=== PATIENT | male | born 1930 | race Caucasian/White ===

== ENCOUNTER 2016-03-26 00:40 | Inpatient (IN) | payer OTHER ==
[~2016-03-26] VITALS: Ht 170.2 cm; Wt 75.9 kg
[~2016-03-26 00:40] MED LIST: ASPI32ECTA PO; CLOP75TA2 PO; DOCU100C PO; DRIS50002 PO; FURO20TA2 PO; HYDR-4267 PO; INSULADS SC; LISI40TAB PO; LOSA100T36 PO; LOSA50TA20 PO; MECL-68 PO; METO-207 PO; NIFE15TA PO; SIMV40TA2 PO
[2016-03-26] MEDS ORDERED: GASTROGRAFIN SOLUTION 30ML (Q9963) As Ordered ONE (01:35)
[2016-03-26 01:40] LABS: BASO % 0.3 % (0.0-1.0); EOS # 0.2 K/mm3 (0.0-0.50); EOS % 1.6 % (0.0-3.0); LARGE UNSTAINED CELL # 0.2 K/mm3 (0.0-0.4); LARGE UNSTAINED CELL % 1.6 % (0.0-4.0); LYMPH # 2.2 K/mm3 (1.5-4.5); MEAN CORPUSCULAR HEMOGLOBIN 29.4 pg (27.0-33.0); MEAN CORPUSCULAR HGB CONC 32.7 g/dl (32.0-36.5); MEAN CORPUSCULAR VOLUME 90.1 fl (80.0-96.0); MONO # 0.4 K/mm3 (0.0-0.8); MONO % 4.3 % (0.0-5.0); NEUTROPHILS # 6.9 K/mm3 (1.8-7.7); NEUTROPHILS % 70.2 % (36.0-66.0); PLATELET COUNT, AUTOMATED 189 k/mm3 (150-450); RED CELL DISTRIBUTION WIDTH 12.2 % (11.5-14.5); WHITE BLOOD COUNT 9.9 K/mm3 (4.0-10.0)
[2016-03-26 02:07] LABS: ALBUMIN 3.9 GM/DL (3.2-5.2); ALBUMIN/GLOBULIN RATIO 1.18 (1.00-1.93); ALKALINE PHOSPHATASE 84 U/L (45-117); ALT/SGPT 17 U/L (12-78); AMYLASE 89 U/L (25-115); ANION GAP 9 MEQ/L (8-16); AST/SGOT 12 U/L (15-37); BILIRUBIN,DIRECT < 0.1 MG/DL (0.0-0.2); BILIRUBIN,TOTAL 0.2 MG/DL (0.2-1.0); CALCIUM LEVEL 9.2 MG/DL (8.8-10.2); CARBON DIOXIDE LEVEL 26 MEQ/L (21-32); CHLORIDE LEVEL 110 MEQ/L (98-107); CREATININE FOR GFR 1.48 MG/DL (0.70-1.30); GLOMERULAR FILTRATION RATE 48.2 (>35); GLUCOSE, FASTING 136 MG/DL (83-110); POTASSIUM SERUM 4.7 MEQ/L (3.5-5.1); SODIUM LEVEL 145 MEQ/L (136-145); TOTAL PROTEIN 7.2 GM/DL (6.4-8.2)
[2016-03-26 02:13] LABS: BLOOD UREA NITROGEN 48 MG/DL (7-18)
[2016-03-26] MEDS ORDERED: MORPHINE 4 MG/ML 1ML SYRINGE As Ordered ONE (02:42)
[2016-03-26] MEDS ORDERED: ISOVUE-370 76% 100ML VIAL (Q9967) As Ordered ONE (02:45)
--- NOTE | 2016-03-26 03:40 | REPUSA ---
CLINICAL HISTORY: Abdominal pain. TECHNIQUE: Multiple axial, sagittal and coronal CT images were obtained through the abdomen and pelvi s after administration of oral and intravenous contrast material. COMMENTS: Changes from prior prostatectomy. Colonic diverticulosis. Large bowel fecal stasis. Small sliding hiatal hernia. Fluid-filled distended small bowel is more prominent in the right lower quadrant. The liver is of uniform attenuation without mass or defect. There is no intra or extrahepatic biliary ductal dilatation. The spleen is normal. The gallbladder is surgically absent. The pancreas is of no rmal contour and attenuation characteristics. There is no evidence of adrenal mass. Both kidneys demonstrate prompt and equal nephrograms. The kidneys are normal in size, shape and conf iguration. There is no evidence of renal or ureteral mass. No renal or ureteral calculi are identifie d. There is no hydroureter or hydronephrosis. No evidence for appendicitis. There is no evidence of abdominal ascites or lymphadenopathy. There is no evidence of intrinsic or extrinsic bladder mass. There is no pelvic ascites or lymphadeno joan. Images of the lung bases show no evidence of pleural or parenchymal mass. There are no pleural effusi ons. The bony structures are free of lytic or blastic lesions. Multilevel degenerative changes are seen in volving the thoracolumbar spine. Scattered calcifications are seen involving the aorta and major bran ches compatible with atherosclerosis. Sliding hiatal hernia. IMPRESSION: Prostatectomy. Partial small bowel obstruction. A transition zone in the right lower quadrant. No bowel perforation or pneumatosis intestinalis. Thank you for your kind referral of this patient.
[2016-03-26] MEDS ORDERED: MECL12.575 PO (04:27)
[2016-03-26] MEDS ORDERED: CORITAB5 PO (04:27)
[2016-03-26] MEDS ORDERED: METF1000 PO ×2 (04:27→04:35)
[2016-03-26] MEDS ORDERED: INSULANT SC ×2 (04:27→04:35)
[2016-03-26] MEDS ORDERED: LISI40TAB PO ×2 (04:27→04:35)
[2016-03-26] MEDS ORDERED: CO Q1CAP PO ×2 (04:27→04:35)
[2016-03-26] MEDS ORDERED: LORA10TA2 PO ×2 (04:27→04:35)
[2016-03-26] MEDS ORDERED: FURO20TA2 PO (04:35)
[2016-03-26] MEDS ORDERED: PLAV75TA38 PO (04:35)
[2016-03-26] MEDS ORDERED: SIMV40TA2 PO (04:35)
[2016-03-26] MEDS ORDERED: ASPI325T PO (04:35)
[2016-03-26] MEDS ORDERED: NIFE15TA PO (04:35)
[2016-03-26] MEDS ORDERED: METO-207 PO (04:35)
[2016-03-26] MEDS ORDERED: MUPI2OI EXT (06:52)
[2016-03-26] MEDS ORDERED: ONDANSETRON 4MG/2ML VIAL (J2405) IV PRN (09:00)
[2016-03-26] MEDS ORDERED: KETOROLAC 30 MG/ML VIAL (J1885) IV PRN (09:00)
[2016-03-26] MEDS ORDERED: NORCO, ANEXSIA 5/325MG TABLET (HYDROcodone/ACETAMINOPHEN) PO PRN (09:00)
[2016-03-26] MEDS ORDERED: ACETAMINOPHEN TAB 650MG DOSE (2X325MG) PO PRN (09:00)
[2016-03-26] MEDS ORDERED: PIPERACILLIN/TAZOBACTAM SOD 3.375 GM in D5W MINI-BAG PLUS 50 ML IV SCH (11:00)
[2016-03-26] MEDS ORDERED: GLUCOSE 4 GM CHEW TABLET PO PRN (12:15)
[2016-03-26] MEDS ORDERED: DEXTROSE 50% 50 ML SYRINGE IV PRN (12:15)
[2016-03-26] MEDS ORDERED: MECLIZINE 12.5 MG TAB PO PRN (12:15)
[2016-03-26] MEDS ORDERED: GLUCAGON FOR INJ 1 MG VIAL (J1610) SC PRN (12:15)
[2016-03-26] MEDS ORDERED: HEPARIN SOD (PORCINE) 5000 UNITS/ML VIAL As Ordered ONE (13:50)
[2016-03-26] MEDS ORDERED: HEPARIN SOD (PORCINE) 5000 UNITS/ML VIAL SC SCH (14:00)
--- NOTE | 2016-03-26 14:15 | EDDOCDS ---
Nurse's Notes [facility] Name: Mnig Cerda Age: 86 yrs Sex: Male : 1930 Arrival Date: 03/26/2016 Time: 00:40 Bed Admit Hold Private MD: Diagnosis: Other intestinal obstruction Presentation: 03/26 00:51 Presenting complaint: Patient states: Patient reports having chest pain and abdominal jmb pain. Patient reports that symptoms have been going for 3-4 hours. Patient reports he feels like he is having a heart attack. Adult Sepsis Screening: The patient does not have new or worsening altered mentation. Patient's respiratory rate is less than 22. Systolic blood pressure is greater than 100. Patient has a qSOFA score of 0- Negative Sepsis Screen. Suicide/Homicide risk assessment- the patient denies having any suicidal and/or homicidal ideations and does not present with any other emotional, behavioral or mental health complaints. 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 Transition of care: patient was not received from another setting of care. 00:51 Acuity: LIA Level 3 jmb 00:51 Method Of Arrival: Walkin/Carried/Asstd jmb Triage Assessment: 00:58 General: Appears in no apparent distress, Behavior is appropriate for age, cooperative. jmb Pain: Location: abdomen Pain currently is 4 out of 10 on a pain scale. Neurological: Level of Consciousness is awake, alert, obeys commands, Oriented to person, place, time, Speech is normal, Facial symmetry appears normal, Facial symmetry: tongue is midline. Cardiovascular: No deficits noted. Respiratory: Airway is patent Respiratory effort is even, unlabored, Respiratory pattern is regular, symmetrical. GI: Abdomen is non- distended. Derm: Skin is pink, warm & dry. Musculoskeletal: Range of motion intact in all extremities. Historical: - Allergies: No known drug Allergies; - Home Meds: 1. metoprolol succinate 50 mg Tb24 1 tab once daily 2. Plavix 75 mg Oral tab 1 tab once daily 3. hydralazine 50 mg Oral tab 1 tab three times a day 4. furosemide 20 mg Oral tab 1 tab once daily 5. losartan 100 mg oral tab 0.5 tab twice a day 6. Nifedical XL 60 mg oral tr24 1 tab once daily 7. simvastatin 40 mg Oral tab 1 tab once daily 8. lisinopril 40 mg Oral tab 1 tab once daily 9. aspirin 325 mg Oral tab 1 tab once daily 10. Vitamin D Oral 50,000 unit weekly 11. metformin 1,000 mg Oral tr24 1 tab once daily 12. coenzyme Q10 oral 100-200 oral daily 13. Lantus 100 unit/mL Sub-Q soln 15 unit daily 14. meclizine 12.5 mg Oral chew twice a day 15. Coricidin HBP Cough and Cold 4-30 mg oral tab as needed 16. loratadine 10 mg Oral TbDL 1 tab once daily - PMHx: Hypertension; hyperlipidemia; Diabetes - NIDDM: controlled; Seasonal Allergies; - PSHx: Right inguinal hernia repair; Prostatectomy (1998); Triple bypass; Cardiac stents; right leg bypass; left shoulder rotator cuff; Cholecystectomy; right carotid endarectomy; left ocular lens; right ocular lens; chest biopsy; chest wall CA removed; left inguinal hernia repair; - Social history: Smoking status: Patient states was never smoker of tobacco. No barriers to communication noted, The patient speaks fluent Gambian, Speaks appropriately for age. - : The pt / caregiver states he / she is on anticoagulants: Plavix. Home medication list is obtained from the patient. - Exposure Risk Screening:: None identified. Screenin:56 Screening information is obtained from the patient. Fall risk: At risk due to age, The hs1 following interventions are performed due to a positive Fall Risk Screen: Fall Risk is added to Special Handling on the patient Summary Screen. A Fall Risk Bracelet was applied to the patient. Side Rails are placed in the up position. A Call Dubose is given with instruction to call for help when getting out of bed. Fall Alert bracelet is placed on the patient. Assistance ADL's: requires no assistance with activities of daily living. Abuse/DV Screen: The patient / caregiver reports he/she is: not in a situation that causes fear, pain or injury. Nutritional screening: No deficits noted. Advance Directives: There is no active DNR order. home support is adequate. Assessment: 01:44 General: Appears in no apparent distress, comfortable, Behavior is appropriate for age, nn1 cooperative. Pain: Location: right lower quadrant and left lower quadrant Pain currently is 5 out of 10 on a pain scale. Pain radiates to chest Quality of pain is described as dull, Pain began 1999 yesterday Is continuous. Neurological: Level of Consciousness is awake, alert, obeys commands, Oriented to person, place, time. Respiratory: Airway is patent Respiratory effort is even, unlabored, Respiratory pattern is regular, symmetrical, Breath sounds are clear bilaterally. GI: Abdomen is non- distended abdomen feels firm, patient states he does not feel like his abdomen is distended or hardened, states this is his normal state. Patient denies bloated feeling. Bowel sounds present X 4 quads. Abd is tender to palpation in right upper quadrant and right lower quadrant. : No deficits noted. Denies burning with urination, inability to void. Derm: Skin is pink, warm & dry. Musculoskeletal: Circulation, motion, and sensation intact Capillary refill < 3 seconds Range of motion intact in all extremities. 01:47 General: Patient drinking contrast, aware that we are waiting for urine sample. Fluids nn1 infusing per order. Warm blanket applied. . 02:48 General: Patient reporting increased abdominal pain, provider notified and patient nn1 medicated per orders. Patient comfortable, given warm blankets. . Neurological: Level of Consciousness is awake, alert, Oriented to person, place, time. Derm: Skin is normal. 03:42 General: Patient sleeping when this documenter entered the room. Patients oxygen nn1 decreased to 87% on RA when sleeping, 2L oxygen nasal cannula placed on patient, O2 increased to 92%. . 04:13 General: Patients family voiced concerns regarding NG tube and patients nasal nn1 infection. Spoke with Dr. Boogie, instructed to hold NG/OG tube at this time unless patient begins vomiting. Patient and family notified of plan of care at this time. . Neurological: Level of Consciousness is awake, alert. Cardiovascular: Capillary refill < 3 seconds Rhythm is sinus rhythm No ectopy. Respiratory: Airway is patent Respiratory effort is even, unlabored, Respiratory pattern is regular, symmetrical. 05:04 General: Appears in no apparent distress, to be sleeping. Behavior is quiet. nn1 06:05 General: Appears to be sleeping. Behavior is quiet. Respiratory: Airway is patent nn1 Respiratory effort is even, unlabored, Respiratory pattern is regular, symmetrical. Derm: Skin is pink, warm & dry. 07:20 General: Appears in no apparent distress, comfortable, Behavior is appropriate for age, hs1 cooperative. Pain: Denies pain. Neurological: Level of Consciousness is awake, alert, obeys commands. GI: Denies nausea. : Urine is clear, up to urinate at this time. Derm: Skin is pink, warm & dry. normal. 08:06 Reassessment: Patient appears in no apparent distress at this time. Patient denies pain hs1 at this time. Patient states feeling better. Patient states symptoms have improved. Patient states "I think Ill live, I feel much better than I did - wow!" Patients lights dimmed for comfort and patient drifting off back to sleep again. Patient appears comfortable with no issues. Patient aware of NPO (nothing to eat/drink) status. . 09:32 General: Morning medications given at this time. Patient sitting up on side of bed hs1 tolerating sips of water and states he is not in any pain. Patient requests to rest again, so lights dimmed and patient returned to bed. Call dubose within reach. Patient continues to deny pain. . 10:45 General: Appears in no apparent distress, comfortable, Behavior is appropriate for age, hs1 cooperative. General: resting comfortably on stretcher. Using urinal as needed. . Pain: Denies pain. Respiratory: No deficits noted. 11:48 General: Appears in no apparent distress, comfortable, Behavior is appropriate for age, hs1 cooperative. Pain: Denies pain. Neurological: Level of Consciousness is awake, alert, obeys commands, Oriented to person, place, time. Cardiovascular: No deficits noted. Respiratory: No deficits noted. Derm: Skin is pink, warm & dry. normal. 12:48 General: Appears in no apparent distress, comfortable, Behavior is appropriate for age, hs1 cooperative. Pain: Denies pain. Neurological: Level of Consciousness is awake, alert, Oriented to person, place, time. Cardiovascular: Rhythm is regular. Respiratory: No deficits noted. Derm: Skin is pink, warm & dry. normal. 13:32 General: Appears in no apparent distress, comfortable, Behavior is appropriate for age, hs1 cooperative. Pain: Denies pain. Respiratory: No deficits noted. Derm: Skin is pink, warm & dry. normal. Vital Signs: 01:05 BP 207 / 87; Pulse 74; Resp 18; Temp 97.4(O); Pulse Ox 96% on R/A; Pain 4/10; jmb 01:25 BP 180 / 81 (auto/); nn1 01:25 Pulse 64 MON; Pulse Ox 96% ; nn1 01:30 BP 163 / 73 (auto/); nn1 01:31 Pulse 66 MON; Pulse Ox 95% ; nn1 01:45 BP 185 / 77 (auto/); nn1 01:46 Pulse 66 MON; Pulse Ox 95% ; nn1 02:00 BP 141 / 66 (auto/); nn1 02:00 Pulse 58 MON; Pulse Ox 94% ; nn1 02:15 BP 135 / 61 (auto/); nn1 02:16 Pulse 56 MON; Pulse Ox 93% ; nn1 02:30 BP 120 / 56 (auto/); nn1 02:31 Pulse 54 MON; Pulse Ox 92% ; nn1 02:45 BP 138 / 59 (auto/); nn1 02:46 Pulse 58 MON; Pulse Ox 91% ; nn1 03:09 Pulse 68 MON; nn1 03:10 BP 134 / 58 (auto/); nn1 03:15 BP 164 / 73 (auto/); nn1 03:15 Pulse 74 MON; Pulse Ox 92% ; nn1 03:30 BP 159 / 67 (auto/); nn1 03:31 Pulse 72 MON; Pulse Ox 87% ; nn1 04:18 BP 145 / 65; Pulse 68; Resp 18; Temp 98.3(TE); Pulse Ox 93% on 2 lpm NC; nn1 12:05 BP 159 / 62; Pulse 84; Resp 18; Temp 97.5; Pulse Ox 94% ; Pain 0/10; hs1 Vitals: 00:58 Log In Time: March 26, 2016 at 00:40. [facility] ED Course: 00:42 Patient visited by Brian James, Reg. pm4 00:42 Patient moved to Waiting pm4 00:52 Triage Initiated b 00:59 Lucian Cohn DO is Attending Physician. cs11 00:59 Patient visited by Lucian Cohn DO. cs11 00:59 Patient moved to 9 [facility] 01:17 Pt greeted and oriented to ED. Patient advised of names of staff involved in care, ced location of call dubose, wait times and NPO status. Accompanied by Family Member, Patient has correct armband on for positive identification. Placed in gown. Bed in low position. Call light in reach. Side rails up X 1. master scheduler on. Pulse ox on. NIBP on. 01:17 EKG done. (by ED staff). Reviewed by Lucian Cohn DO. ced 01:18 Patient visited by Arline Resendiz PCA. ced 01:33 Lactic Acid (Li tube on ice) Sent. nn1 01:33 Cardiac Marker Panel Sent. nn1 01:33 Amylase Sent. nn1 01:33 Lipase Sent. nn1 01:33 Liver Profile Sent. nn1 01:34 MED Profile Sent. nn1 01:34 CBC with Diff Sent. nn1 01:47 Inserted saline lock: 20 gauge in left antecubital area and blood collected. The nn1 patient tolerated the procedure well. 01:48 Patient visited by Mary Giang RN. nn1 01:50 [facility] Payment Agreement was scanned into [employer] and attached to record. hs2 02:47 Patient visited by Mary Giang RN. nn1 03:14 Urine Culture Sent. kas2 03:14 Urinalysis Sent. kas2 03:22 Patient visited by Mary Giang RN. nn1 03:44 O2 via nasal cannula \\T\\ 2L/min. nn1 03:53 Claude Boogie DO is Hospitalizing Provider. cs11 04:01 Admission Orders was scanned into [employer] and attached to record. tmm1 04:15 CT ABD & PELVIS: IV and Oral Contrast Returned. EDMS 04:26 Patient moved to Admit Hold sls1 07:56 The patient / caregiver is instructed regarding the plan of care and ED course. hs1 08:08 Patient visited by Ange Alvarado RN. hs1 09:32 T-Sheet-- Draft Copy was scanned into [employer] and attached to record. gb 10:53 Ange Alvarado, DAVID is Primary Nurse. hs1 11:28 Patient visited by Ange Alvarado RN. hs1 11:43 Patient visited by Ange Alvarado RN. hs1 13:31 No procedures done that require assistance. hs1 14:08 Patient visited by Negar Cortes PCA. ct3 14:08 Diet: CLEAR DIET LIQUID GIVEN TO PATIENT. ct3 Administered Medications: 01:44 Drug: NS 0.9% 500 ml [sodium chloride 0.9 % intravenous solution] Route: IV; Rate: nn1 bolus; Site: left antecubital; 02:37 Drug: Diatrizoate Meglumine & Sodium 10 ml [diatrizoate meglumine and diat.sodium 66 nn1 %-10 % oral solution (10 mL)] Route: PO; 02:47 Drug: morphine 4 mg [morphine 4 mg/mL intravenous cartridge (1 mL)] Route: IVP; Site: nn1 left antecubital; 04:13 Drug: NS 0.9% 1000 ml [sodium chloride 0.9 % intravenous solution] Route: IV; Rate: 250 nn1 mL/hr; Site: left antecubital; 08:09 Follow up: IV Status: Completed infusion; IV Intake: 800ml hs1 08:10 Drug: LR 1000 ml [lactated ringers intravenous solution] Route: IV; Rate: 100 mL/hr; hs1 Site: left antecubital; 14:06 Drug: heparin 5000 units [heparin (porcine) 5,000 unit/mL injection solution (1 mL)] mb9 {Co-Signature: kr3 (Joelle Friedman RN).} Route: Sub-Q; Site: abdomen; Intake: 08:09 IV: 800.00ml; Total: 800.00ml. hs1 Order Results: Lab Order: CBC with Diff; SPEC'M 03/26/16 01:30 Test: WHITE BLOOD COUNT; Value: 9.9; Range: 4.0-10.0; Units: K/mm3; Status: F Test: RED BLOOD COUNT; Value: 4.29; Range: 4.30-6.10; Abnormal: Below low normal; Units: M/mm3; Status: F Test: HEMOGLOBIN; Value: 12.6; Range: 14.0-18.0; Abnormal: Below low normal; Units: g/dl; Status: F Test: HEMATOCRIT; Value: 38.7; Range: 42.0-52.0; Abnormal: Below low normal; Units: %; Status: F Test: MEAN CORPUSCULAR VOLUME; Value: 90.1; Range: 80.0-96.0; Units: fl; Status: F Test: MEAN CORPUSCULAR HEMOGLOBIN; Value: 29.4; Range: 27.0-33.0; Units: pg; Status: F Test: MEAN CORPUSCULAR HGB CONC; Value: 32.7; Range: 32.0-36.5; Units: g/dl; Status: F Test: RED CELL DISTRIBUTION WIDTH; Value: 12.2; Range: 11.5-14.5; Units: %; Status: F Test: PLATELET COUNT, AUTOMATED; Value: 189; Range: 150-450; Units: k/mm3; Status: F Test: NEUTROPHILS %; Value: 70.2; Range: 36.0-66.0; Abnormal: Above high normal; Units: %; Status: F Test: LYMPH %; Value: 22.0; Range: 24.0-44.0; Abnormal: Below low normal; Units: %; Status: F Test: MONO %; Value: 4.3; Range: 0.0-5.0; Units: %; Status: F Test: EOS %; Value: 1.6; Range: 0.0-3.0; Units: %; Status: F Test: BASO %; Value: 0.3; Range: 0.0-1.0; Units: %; Status: F Test: LARGE UNSTAINED CELL %; Value: 1.6; Range: 0.0-4.0; Units: %; Status: F Test: NEUTROPHILS #; Value: 6.9; Range: 1.8-7.7; Units: K/mm3; Status: F Test: LYMPH #; Value: 2.2; Range: 1.5-4.5; Units: K/mm3; Status: F Test: MONO #; Value: 0.4; Range: 0.0-0.8; Units: K/mm3; Status: F Test: EOS #; Value: 0.2; Range: 0.0-0.50; Units: K/mm3; Status: F Test: BASO #; Value: 0.0; Range: 0.0-0.2; Units: K/mm3; Status: F Test: LARGE UNSTAINED CELL #; Value: 0.2; Range: 0.0-0.4; Units: K/mm3; Status: F Lab Order: MED Profile; SPEC'M 03/26/16 01:30 Test: GLUCOSE, FASTING; Value: 136; Range: 83-110; Abnormal: Above high normal; Units: MG/DL; Status: F Test: BLOOD UREA NITROGEN; Value: 48; Range: 7-18; Abnormal: Above high normal; Units: MG/DL; Status: F Test: CREATININE FOR GFR; Value: 1.48; Range: 0.70-1.30; Abnormal: Above high normal; Units: MG/DL; Status: F Test: GLOMERULAR FILTRATION RATE; Value: 48.2; Range: >35; Status: F Test: SODIUM LEVEL; Value: 145; Range: 136-145; Units: MEQ/L; Status: F Test: POTASSIUM SERUM; Value: 4.7; Range: 3.5-5.1; Units: MEQ/L; Status: F Test: CHLORIDE LEVEL; Value: 110; Range: 98-107; Abnormal: Above high normal; Units: MEQ/L; Status: F Test: CARBON DIOXIDE LEVEL; Value: 26; Range: 21-32; Units: MEQ/L; Status: F Test: ANION GAP; Value: 9; Range: 8-16; Units: MEQ/L; Status: F Test: CALCIUM LEVEL; Value: 9.2; Range: 8.8-10.2; Units: MG/DL; Status: F Test Note: ; Units are mL/min/1.73 m2 Chronic Kidney Disease Staging per NKF: Stage I & II GFR >=60 Normal to Mildly Decreased Stage III GFR 30-59 Moderately Decreased Stage IV GFR 15-29 Severely Decreased Stage V GFR <15 Very Little GFR Left ESRD GFR <15 on PRINCIPAL ANDROID DEVELOPER Lab Order: Liver Profile; [facility] 03/26/16 01:30 Test: AST/SGOT; Value: 12; Range: 15-37; Abnormal: Below low normal; Units: U/L; Status: F Test: ALT/SGPT; Value: 17; Range: 12-78; Units: U/L; Status: F Test: ALKALINE PHOSPHATASE; Value: 84; Range: 45-117; Units: U/L; Status: F Test: BILIRUBIN,TOTAL; Value: 0.2; Range: 0.2-1.0; Units: MG/DL; Status: F Test: BILIRUBIN,DIRECT; Value: < 0.1; Range: 0.0-0.2; Units: MG/DL; Status: F Test: TOTAL PROTEIN; Value: 7.2; Range: 6.4-8.2; Units: GM/DL; Status: F Test: ALBUMIN; Value: 3.9; Range: 3.2-5.2; Units: GM/DL; Status: F Test: ALBUMIN/GLOBULIN RATIO; Value: 1.18; Range: 1.00-1.93; Status: F Lab Order: Amylase; [facility] 03/26/16 01:30 Test: AMYLASE; Value: 89; Range: 25-115; Units: U/L; Status: F Lab Order: Lipase; [facility] 03/26/16 01:30 Test: LIPASE; Value: 179; Range: 73-393; Units: U/L; Status: F Lab Order: Cardiac Marker Panel; [facility] 03/26/16 01:30 Test: CPK CREATINE PHOSPHOKINASE; Value: 90; Range: 39-308; Units: U/L; Status: F Test: CK-MB VALUE MASS; Value: 1.3; Range: 0.0-3.6; Units: NG/ML; Status: F Test: MB/CK RELATIVE INDEX; Value: 1.44; Range: < OR =4; Status: F Test: TROPONIN I; Value: < 0.02; Range: < 0.10; Units: NG/ML; Status: F Test Note: ; DIAGNOSIS CRITERIA MMB ng/ml Relative Index (RI) NON-AMI < or = 5 N/A LI ZONE > 5 < or = 4 AMI > 5 > 4 Lab Order: Urinalysis; [facility] 03/26/16 03:12 Test: APPEARANCE, URINE; Value: CLEAR; Range: CLEAR; Status: F Test: COLOR, URINE; Value: YELLOW; Range: YELLOW; Status: F Test: PH,URINE; Value: 5.0; Range: 5.0-9.0; Units: UNITS; Status: F Test: SPECIFIC GRAVITY URINE AUTO; Value: 1.021; Range: 1.002-1.035; Status: F Test: PROTEIN, URINE AUTO; Value: 1+; Range: NEGATIVE; Abnormal: Above high normal; Units: mg/dL; Status: F Test: GLUCOSE, URINE (UA) AUTO; Value: NEGATIVE; Range: NEGATIVE; Units: mg/dL; Status: F Test: KETONE, URINE AUTO; Value: NEGATIVE; Range: NEGATIVE; Units: mg/dL; Status: F Test: UROBILINOGEN, URINE AUTO; Value: 0.2; Range: 0.0-2.0; Units: mg/dL; Status: F Test: BILIRUBIN, URINE AUTO; Value: NEGATIVE; Range: NEGATIVE; Status: F Test: NITRITE, URINE AUTO; Value: NEGATIVE; Range: NEGATIVE; Status: F Test: LEUKOCYTE ESTERASE, URINE AUTO; Value: NEGATIVE; Range: NEGATIVE; Status: F Test: BLOOD, URINE BLOOD; Value: NEGATIVE; Range: NEGATIVE; Status: F Test: WBC, URINE AUTO; Value: 0; Range: 0-3; Units: /HPF; Status: F Test: RBC, URINE AUTO; Value: 0; Range: 0-3; Units: /HPF; Status: F Test: BACTERIA, URINE AUTO; Value: NEGATIVE; Range: NEGATIVE; Status: F Test: SQUAMOUS EPITHELIAL CELL UR AU; Value: 0; Range: 0-6; Units: /HPF; Status: F Test: MUCUS, URINE; Value: SMALL; Range: NEGATIVE; Status: F Test: HYALINE CAST, URINE AUTO; Value: 1; Range: 0-1; Units: /LPF; Status: F Lab Order: Lactic Acid (Li tube on ice); SPEC'M 03/26/16 01:30 Test: LACTIC ACID LEVEL, LACTATE; Value: 1.1; Range: 0.4-2.0; Units: MMOL/L; Status: F Lab Order: Fingerstick Blood Sugar; SPEC'M 03/26/16 12:09 Test: BEDSIDE GLUCOSE; Value: 230; Range: 83-110; Abnormal: Above high normal; Units: MG/DL; Status: F Test Note: ; RN Notified Radiology Order: CT ABD & PELVIS: IV and Oral Contrast Test: CT ABD & PELVIS: IV and Oral Contrast REASON FOR EXAMINATION: Abdomen Pain; ; CLINICAL HISTORY: Abdominal pain.; TECHNIQUE: Multiple axial, sagittal and coronal CT images were obtained through the abdomen and pelvi; s after administration of oral and intravenous contrast material.; COMMENTS:; Changes from prior prostatectomy.; Colonic diverticulosis.; Large bowel fecal stasis.; Small sliding hiatal hernia.; Fluid-filled distended small bowel is more prominent in the right lower quadrant.; The liver is of uniform attenuation without mass or defect. There is no intra or extrahepatic biliary; ductal dilatation. The spleen is normal. The gallbladder is surgically absent. The pancreas is of no; rmal contour and attenuation characteristics. There is no evidence of adrenal mass.; Both kidneys demonstrate prompt and equal nephrograms. The kidneys are normal in size, shape and conf; iguration. There is no evidence of renal or ureteral mass. No renal or ureteral calculi are identifie; d. There is no hydroureter or hydronephrosis.; No evidence for appendicitis. There is no evidence of abdominal ascites or lymphadenopathy.; There is no evidence of intrinsic or extrinsic bladder mass. There is no pelvic ascites or lymphadeno; joan.; Images of the lung bases show no evidence of pleural or parenchymal mass. There are no pleural effusi; ons.; The bony structures are free of lytic or blastic lesions. Multilevel degenerative changes are seen in; volving the thoracolumbar spine. Scattered calcifications are seen involving the aorta and major bran; ches compatible with atherosclerosis.; Sliding hiatal hernia.; IMPRESSION:; Prostatectomy.; Partial small bowel obstruction. A transition zone in the right lower quadrant. No bowel perforation; or pneumatosis intestinalis.; Thank you for your kind referral of this patient.; ; Outcome: 03:53 Decision to Hospitalize by Provider. 11 14:08 The following High Risk Discharge criteria are identified: None. Admitted to Med/Surg mb9 accompanied by tech. Condition: good Condition: stable Condition: improved. Property :Personal belongings accompany Pt. 14:09 Discharge Assessment: patient administered narcotics - no. CT Study completed. mb9 14:14 Patient left the ED. mb9 Signatures: Dispatcher [employer] EDSD Obdulia Bynum, Reg Reg gb Ange Alvarado RN RN hs1 Arline Resendiz, SAT ACT INSTRUCTOR SAT ACT INSTRUCTOR ced Sebastian, Negar, SAT ACT INSTRUCTOR SAT ACT INSTRUCTOR ct3 Mary Trinh, RN RN sls1 Lucian Cohn, DO cs11 McLear, Keysha, SAT ACT INSTRUCTOR SAT ACT INSTRUCTOR tmm1 Ned Forrest,RN RN jmb Lewis Arroyo,RN RN mb9 Mary Giang,RN RN nn1 Mary Jiménez, Reg Reg hs2 Yaritza LunaRN RN kas2 Brian James, Reg Reg pm4 Joelle Friedman RN kr3 Corrections: (The following items were deleted from the chart) 14:09 14:08 Discharge Assessment: patient administered narcotics - yes. Patient was admitted mb9 to the hospital or transferred to another facility. mb9 MTDD
--- NOTE | 2016-03-26 14:15 | EDDOCDS ---
Physician Documentation [facility] Name: Ming Cerda Age: 86 yrs Sex: Male : 1930 Arrival Date: 03/26/2016 Time: 00:40 Bed Admit Hold MD: Disposition: 03/26/16 03:53 Hospitalization ordered by Claude Boogie for Inpatient Admission. Preliminary diagnosis is Other intestinal obstruction. - Bed requested for 4 House. - Status is Inpatient Admission. mb9 - Condition is Stable. - Problem is new. - Symptoms are unchanged. Historical: - Allergies: No known drug Allergies; - Home Meds: 1. metoprolol succinate 50 mg Tb24 1 tab once daily 2. Plavix 75 mg Oral tab 1 tab once daily 3. hydralazine 50 mg Oral tab 1 tab three times a day 4. furosemide 20 mg Oral tab 1 tab once daily 5. losartan 100 mg oral tab 0.5 tab twice a day 6. Nifedical XL 60 mg oral tr24 1 tab once daily 7. simvastatin 40 mg Oral tab 1 tab once daily 8. lisinopril 40 mg Oral tab 1 tab once daily 9. aspirin 325 mg Oral tab 1 tab once daily 10. Vitamin D Oral 50,000 unit weekly 11. metformin 1,000 mg Oral tr24 1 tab once daily 12. coenzyme Q10 oral 100-200 oral daily 13. Lantus 100 unit/mL Sub-Q soln 15 unit daily 14. meclizine 12.5 mg Oral chew twice a day 15. Coricidin HBP Cough and Cold 4-30 mg oral tab as needed 16. loratadine 10 mg Oral TbDL 1 tab once daily - PMHx: Hypertension; hyperlipidemia; Diabetes - NIDDM: controlled; Seasonal Allergies; - PSHx: Right inguinal hernia repair; Prostatectomy (1998); Triple bypass; Cardiac stents; right leg bypass; left shoulder rotator cuff; Cholecystectomy; right carotid endarectomy; left ocular lens; right ocular lens; chest biopsy; chest wall CA removed; left inguinal hernia repair; - Social history: Smoking status: Patient states was never smoker of tobacco. No barriers to communication noted, The patient speaks fluent Yoruba, Speaks appropriately for age. - : The pt / caregiver states he / she is on anticoagulants: Plavix. Home medication list is obtained from the patient. - Exposure Risk Screening:: None identified. Vital Signs: 03/26 01:05 BP 207 / 87; Pulse 74; Resp 18; Temp 97.4(O); Pulse Ox 96% on R/A; Pain 4/10; jmb 01:25 BP 180 / 81 (auto/); nn1 01:25 Pulse 64 MON; Pulse Ox 96% ; nn1 01:30 BP 163 / 73 (auto/); nn1 01:31 Pulse 66 MON; Pulse Ox 95% ; nn1 01:45 BP 185 / 77 (auto/); nn1 01:46 Pulse 66 MON; Pulse Ox 95% ; nn1 02:00 BP 141 / 66 (auto/); nn1 02:00 Pulse 58 MON; Pulse Ox 94% ; nn1 02:15 BP 135 / 61 (auto/); nn1 02:16 Pulse 56 MON; Pulse Ox 93% ; nn1 02:30 BP 120 / 56 (auto/); nn1 02:31 Pulse 54 MON; Pulse Ox 92% ; nn1 02:45 BP 138 / 59 (auto/); nn1 02:46 Pulse 58 MON; Pulse Ox 91% ; nn1 03:09 Pulse 68 MON; nn1 03:10 BP 134 / 58 (auto/); nn1 03:15 BP 164 / 73 (auto/); nn1 03:15 Pulse 74 MON; Pulse Ox 92% ; nn1 03:30 BP 159 / 67 (auto/); nn1 03:31 Pulse 72 MON; Pulse Ox 87% ; nn1 04:18 BP 145 / 65; Pulse 68; Resp 18; Temp 98.3(TE); Pulse Ox 93% on 2 lpm NC; nn1 12:05 BP 159 / 62; Pulse 84; Resp 18; Temp 97.5; Pulse Ox 94% ; Pain 0/10; hs1 MDM: 01:06 ECG WITH READING ER PHYS+CARDIAG ordered. EDMS 01:19 IV Saline Lock ordered. cs11 01:20 CBC with Diff Ordered. EDMS 01:20 MED Profile Ordered. EDMS 01:20 Liver Profile Ordered. EDMS 01:20 Amylase Ordered. EDMS 01:20 Lipase Ordered. EDMS 01:20 Cardiac Marker Panel Ordered. EDMS 01:20 Urinalysis Ordered. EDMS 01:20 Urine Culture Ordered. EDMS 01:21 NS 0.9% 500 ml IV at bolus once ordered. cs11 01:21 Lactic Acid (Li tube on ice) Ordered. EDMS 01:21 CT ABD & PELVIS: IV and Oral Contrast Ordered. EDMS 01:34 Diatrizoate Meglumine & Sodium Liquid 10 ml PO once; mix in 290cc of water; 1st cup at nn1 0140, 2nd cup at 0210 ordered. 01:49 Financial registration complete. hs2 01:50 [facility] Payment Agreement was scanned into [email or web address] and attached to record. hs2 01:50 CBC with Diff Reviewed. cs11 02:18 MED Profile Reviewed. cs11 02:18 Liver Profile Reviewed. cs11 02:18 Amylase Reviewed. cs11 02:18 Lipase Reviewed. cs11 02:18 Cardiac Marker Panel Reviewed. cs11 02:39 morphine 4 mg IVP once ordered. cs11 03:46 NG/OG Tube 18Fr to L.I.S. with hourly monitoring for placement ordered. cs11 03:47 BED REQUEST+ADM ordered. EDMS 03:50 Lactic Acid (Li tube on ice) Reviewed. cs11 03:52 NS 0.9% 1000 ml IV at 250 mL/hr continuous ordered. cs11 04:01 Admission Orders was scanned into [employer] and attached to record. tmm1 08:10 LR Solution 1000 ml IV at 100 mL/hr once ordered. hs1 08:52 Admission / Observation Status ordered. EDMS 08:53 CLEAR LIQUIDS DIET ordered. EDMS 09:32 T-Sheet-- Draft Copy was scanned into [email or web address] and attached to record. gb 12:19 Fingerstick Blood Sugar Ordered. EDMS 13:55 heparin 5000 units Sub-Q once ordered. mb9 Administered Medications: 01:44 Drug: NS 0.9% 500 ml [sodium chloride 0.9 % intravenous solution] Route: IV; Rate: nn1 bolus; Site: left antecubital; 02:37 Drug: Diatrizoate Meglumine & Sodium 10 ml [diatrizoate meglumine and diat.sodium 66 nn1 %-10 % oral solution (10 mL)] Route: PO; 02:47 Drug: morphine 4 mg [morphine 4 mg/mL intravenous cartridge (1 mL)] Route: IVP; Site: nn1 left antecubital; 04:13 Drug: NS 0.9% 1000 ml [sodium chloride 0.9 % intravenous solution] Route: IV; Rate: 250 nn1 mL/hr; Site: left antecubital; 08:09 Follow up: IV Status: Completed infusion; IV Intake: 800ml hs1 08:10 Drug: LR 1000 ml [lactated ringers intravenous solution] Route: IV; Rate: 100 mL/hr; hs1 Site: left antecubital; 14:06 Drug: heparin 5000 units [heparin (porcine) 5,000 unit/mL injection solution (1 mL)] mb9 {Co-Signature: [email or web address] (Joelle Friedman RN).} Route: Sub-Q; Site: abdomen; Signatures: Dispatcher [employer] EDSarah Contreras, RN RN [facility] Obdulia Bynum, Reg Reg gb Ange Alvarado RN RN hs1 Lucian Cohn, DO cs11 McLear, Keysha, RADIOLOGY SCHEDULER RADIOLOGY SCHEDULER tmm1 Ned Forrest RN RN jmb Belles, Michael, RN RN mb9 Mary Giang RN RN nn1 Mary Jiménez, Reg Reg hs2 Joelle Friedman RN kr3 The chart was reviewed and I authenticate all verbal orders and agree with the evaluation and treatment provided.Attachments: 01:50 [facility] Payment Agreement hs2 04:01 Admission Orders tmm1 09:32 T-Sheet-- Draft Copy MTDD
[2016-03-26 14:20] VITALS: BP 134/74
[2016-03-26] MEDS: LR 1,000 ML IV SCH ×2 (14:42→17:41)
[2016-03-26] MEDS: SIMVASTATIN 40 MG TAB PO SCH (15:04)
[2016-03-26] MEDS: PIPERACILLIN/TAZOBACTAM SOD 3.375 GM in D5W MINI-BAG PLUS 50 ML IV SCH ×2 (15:04→21:13)
[2016-03-26] MEDS: LISINOPRIL 40 MG TAB PO SCH (15:05)
[2016-03-26] MEDS: **hydrALAZINE** 50 MG TAB PO SCH ×2 (15:05→21:13)
[2016-03-26] MEDS: ASPIRIN 325 MG TAB PO SCH (15:05)
[2016-03-26] MEDS: METOPROLOL SUCC (TopROL XL) 50MG **XL** TAB PO SCH (15:05)
[2016-03-26] MEDS: CLOPIDOGREL 75 MG TAB PO SCH (15:05)
[2016-03-26] MEDS: SENOKOT S TAB PO SCH ×2 (15:06→21:14)
[2016-03-26] MEDS: FUROSEMIDE 20 MG TAB PO SCH (15:06)
[2016-03-26] MEDS: LOSARTAN 50 MG TAB PO SCH ×2 (15:06→21:14)
[2016-03-26] MEDS: NIFEdipine 60 MG XL TAB PO SCH (15:06)
[2016-03-26] MEDS: metFORMIN (GLUCOPHAGE) 1000 MG TABLET PO SCH (15:06)
[2016-03-26] MEDS: MUPIROCIN 2% OINT 22 GM TUBE EXT SCH ×2 (15:07→21:53)
[2016-03-26] MEDS: LEVEMIR (INSULIN DETEMIR) 1 UNITS/0.01ML SC SCH (15:07)
[2016-03-26] MEDS: PANTOPRAZOLE 40MG TAB (PROTONIX) PO SCH (15:08)
--- NOTE | 2016-03-26 16:27 | HPE ---
DATE OF ADMISSION: 03/26/2016 CHIEF COMPLAINT: Chest and abdominal pain. HISTORY OF PRESENT ILLNESS: The patient is an 86-year-old male who claims to have had 3-4 hours of epigastric and upper abdominal pain. He was concerned that he was having a heart attack; therefore, he came into the emergency room to be evaluated. In the emergency room (ER) he was cleared from a cardiac standpoint; however, a CT scan shows a possible partial small-bowel obstruction with a transition area towards the right lower quadrant. He denies any history of bowel obstructions in the past. He has had hernia repairs of the right inguinal hernia. He has also a prostatectomy, cholecystectomy. No other significant abdominal surgeries near that site. No recent surgeries in the past six years as well. The patient denies any nausea or vomiting. No fever, sweats, or chills. No recent illnesses, including sore throat, fever, cough, or flu-like symptoms. Last bowel movement was yesterday and was normal. Does not recall having passed any flatus in the last 12 hours. PAST MEDICAL HISTORY: 1. Hypertension. 2. Hyperlipidemia. 3. Diabetes. 4. Seasonal allergies. PAST SURGICAL HISTORY: 1. Right inguinal hernia repair. 2. Prostatectomy. 3. Cardiac bypass. 4. Right leg bypass. 5. Left shoulder rotator cuff repair. 6. Cholecystectomy. 7. Right carotid endarterectomy. 8. Left inguinal hernia repair. SOCIAL HISTORY: Denies drug, alcohol, or tobacco abuse. FAMILY HISTORY: Noncontributory. REVIEW OF SYSTEMS: Pertinent positives and negative stated in the history of present illness (HPI). PHYSICAL EXAMINATION: GENERAL: Alert and oriented times three. No acute stress. VITAL SIGNS: Temperature 101.2, pulse 89, respirations 17, blood pressure 134/74, pulse oximetry 93% on 2 liters nasal cannula. HEENT: Pupils equally round and reactive to light accommodation. HEART: S1, S2, regular rate and rhythm. LUNGS: Clear to auscultation bilaterally. ABDOMEN: Soft, slightly distended, tender palpation, right lower quadrant. No rebound, guarding, or rigidity. No signs of peritonitis. Bowel sounds are positive. EXTREMITIES: No clubbing, cyanosis, or edema. LABORATORY DATA: White count 9.9, hemoglobin 12.6. Potassium 4.7, creatinine 1.48. Lipase 179. IMAGING STUDIES: CT abdomen and pelvis shows a partial small-bowel obstruction with transition zone in the right lower quadrant. No signs of bowel perforation or pneumatosis intestinalis ASSESSMENT AND PLAN: The patient is an 86-year-old male with a history of hypertension, diabetes, coronary artery disease who presents with abdominal distension and pain. CT scan findings showed likely a small-bowel obstruction with a transition in the right lower quadrant. This may be a forming complete obstruction versus a partial obstruction. Due to him not having any nausea or vomiting, there is no need to place an nasogastric (NG) tube at this time. Stomach is decompressed on CT scan. Recommend to start him on clear liquid diet. We will try to treat him conservatively. If he gets worse over the next 24 hours, stop the diet and place in NG tube. See if this obstruction will resolve on its own. If for some reason his obstruction gets worse and does not resolve on its own within the next 72 hours, then he may be a candidate for diagnostic laparoscopy with possible lysis of adhesions to relieve the obstruction. We will monitor his hypertension, diabetes with his home medications while he is here. Will continue with fingersticks before meals and at bedtime.
[2016-03-26] MEDS: HumaLOG INSULIN (NovoLOG) PER UNIT SC SCH ×2 (17:41→20:46)
--- NOTE | 2016-03-26 20:20 | ECGEPIP ---
Stationary ECG Study [facility] - ED Test Date: 2016-03-26 Pat Name: PHU LAGOS Department: Room: [place] [address] Gender: M Velvet Steamer: MezaB: 1930 Requested By: MILAGROS PHILLIPS Order Number: [id number] Reading MD: Milli Pak Measurements Intervals [place] Rate: 64 P: 39 MN: 132 QRS: 59 QRSD: 166 T: 30 QT: 436 QTc: 453 Interpretive Statements SINUS RHYTHM RIGHT BUNDLE BRANCH BLOCK BASELINE ARTIFACT LIMITS INTERPRETATION INCREASED RATE 03/16/14 Electronically Signed On 03-26-2016 20:19:52 EST by Milli Pak
[2016-03-26 22:00] VITALS: BP 125/59
[2016-03-27] MEDS: PIPERACILLIN/TAZOBACTAM SOD 3.375 GM in D5W MINI-BAG PLUS 50 ML IV SCH ×4 (02:06→20:41)
[2016-03-27] MEDS: LR 1,000 ML IV SCH ×3 (02:06→16:56)
[2016-03-27 06:00] VITALS: BP 138/63
[2016-03-27 06:53] LABS: MEAN CORPUSCULAR HEMOGLOBIN 29.9 pg (27.0-33.0); MEAN CORPUSCULAR HGB CONC 33.6 g/dl (32.0-36.5); MEAN CORPUSCULAR VOLUME 89.2 fl (80.0-96.0); RED CELL DISTRIBUTION WIDTH 12.6 % (11.5-14.5); WHITE BLOOD COUNT 14.4 K/mm3 (4.0-10.0)
[2016-03-27 07:04] LABS: CALCIUM LEVEL 8.1 MG/DL (8.8-10.2); CREATININE FOR GFR 1.67 MG/DL (0.70-1.30); GLOMERULAR FILTRATION RATE 41.9 (>35); POTASSIUM SERUM 4.1 MEQ/L (3.5-5.1)
[2016-03-27] MEDS: LEVEMIR (INSULIN DETEMIR) 1 UNITS/0.01ML SC SCH (08:48)
[2016-03-27] MEDS: SENOKOT S TAB PO SCH ×2 (08:48→20:41)
[2016-03-27] MEDS: HumaLOG INSULIN (NovoLOG) PER UNIT SC SCH ×4 (08:48→20:29)
[2016-03-27] MEDS: FUROSEMIDE 20 MG TAB PO SCH (08:48)
[2016-03-27] MEDS: metFORMIN (GLUCOPHAGE) 1000 MG TABLET PO SCH (08:49)
[2016-03-27] MEDS: NIFEdipine 60 MG XL TAB PO SCH (08:49)
[2016-03-27] MEDS: LISINOPRIL 40 MG TAB PO SCH (08:49)
[2016-03-27] MEDS: CLOPIDOGREL 75 MG TAB PO SCH (08:49)
[2016-03-27] MEDS: METOPROLOL SUCC (TopROL XL) 50MG **XL** TAB PO SCH (08:49)
[2016-03-27] MEDS: PANTOPRAZOLE 40MG TAB (PROTONIX) PO SCH (08:49)
[2016-03-27] MEDS: LOSARTAN 50 MG TAB PO SCH ×2 (08:49→20:41)
[2016-03-27] MEDS: SIMVASTATIN 40 MG TAB PO SCH (08:49)
[2016-03-27] MEDS: MUPIROCIN 2% OINT 22 GM TUBE EXT SCH ×2 (08:50→20:41)
[2016-03-27] MEDS: **hydrALAZINE** 50 MG TAB PO SCH ×3 (08:50→20:41)
[2016-03-27] MEDS: ASPIRIN 325 MG TAB PO SCH (08:50)
[2016-03-27 14:00] VITALS: BP 119/59
[2016-03-27 22:00] VITALS: BP 122/58
[2016-03-28] MEDS: LR 1,000 ML IV SCH (00:03)
[2016-03-28] MEDS: PIPERACILLIN/TAZOBACTAM SOD 3.375 GM in D5W MINI-BAG PLUS 50 ML IV SCH (02:18)
[2016-03-28 06:00] VITALS: BP 102/50
[2016-03-28 06:39] LABS: MEAN CORPUSCULAR HEMOGLOBIN 29.2 pg (27.0-33.0); MEAN CORPUSCULAR HGB CONC 31.6 g/dl (32.0-36.5); MEAN CORPUSCULAR VOLUME 92.7 fl (80.0-96.0); RED CELL DISTRIBUTION WIDTH 13.4 % (11.5-14.5)
[2016-03-28 06:55] LABS: CALCIUM LEVEL 8.1 MG/DL (8.8-10.2); CREATININE FOR GFR 1.73 MG/DL (0.70-1.30); GLOMERULAR FILTRATION RATE 40.3 (>35); MAGNESIUM LEVEL 1.9 MG/DL (1.8-2.4); POTASSIUM SERUM 3.7 MEQ/L (3.5-5.1)
[2016-03-28] MEDS: HumaLOG INSULIN (NovoLOG) PER UNIT SC SCH (07:38)
[2016-03-28] MEDS: metFORMIN (GLUCOPHAGE) 1000 MG TABLET PO SCH (08:52)
[2016-03-28] MEDS: SENOKOT S TAB PO SCH (08:52)
[2016-03-28] MEDS: CLOPIDOGREL 75 MG TAB PO SCH (08:52)
[2016-03-28 08:53] VITALS: BP 135/60
[2016-03-28] MEDS: LISINOPRIL 40 MG TAB PO SCH (08:53)
[2016-03-28] MEDS: LOSARTAN 50 MG TAB PO SCH (08:53)
[2016-03-28] MEDS: FUROSEMIDE 20 MG TAB PO SCH (08:53)
[2016-03-28] MEDS: PANTOPRAZOLE 40MG TAB (PROTONIX) PO SCH (08:53)
[2016-03-28] MEDS: NIFEdipine 60 MG XL TAB PO SCH (08:53)
[2016-03-28] MEDS: METOPROLOL SUCC (TopROL XL) 50MG **XL** TAB PO SCH (08:53)
[2016-03-28] MEDS: MUPIROCIN 2% OINT 22 GM TUBE EXT SCH (08:54)
[2016-03-28] MEDS: ASPIRIN 325 MG TAB PO SCH (08:54)
[2016-03-28] MEDS: SIMVASTATIN 40 MG TAB PO SCH (08:54)
[2016-03-28] MEDS: **hydrALAZINE** 50 MG TAB PO SCH (08:54)
--- NOTE | 2016-03-28 10:14 | DSES ---
DATE OF ADMISSION: 03/26/2016 DATE OF DISCHARGE: ADMISSION DIAGNOSIS: Partial small bowel obstruction. DISCHARGE DIAGNOSIS: Partial small bowel obstruction. HOSPITAL COURSE: The patient is a 86-year-old male who presented to the emergency room (ER) in the evening of the . He came in with a complaint of possible heart attack. He was having abdominal and epigastric pains and distention. Cardiac workup was negative; however, CT showed a partial small bowel obstruction. He was then admitted, kept on IV fluids and had a couple bowel movements. He was started on a clear liquid diet. On 03/27/2016, he had a fever overnight and his white count had gone up from 9 to 14, so his diet was kept where it was. It was not advanced, even though he felt great and had no pains, no nausea and no vomiting. No abdominal pains. Therefore, he was kept overnight again. This morning, 03/28/2016, his white count has dropped back down to 12. He is still feeling great, having bowel movements and tolerating a diet. He has a very sick at home with metastatic cancer and he is very anxious to get home to help her out. At this point, it appears as though his obstruction has resolved. PLAN: Will be to discharge home today on a regular diet. Call my office if he has any symptoms that return within the next couple weeks. No follow up necessary at this point.
--- NOTE | 2016-03-28 15:15 | EDDOCDS ---
Physician Documentation [facility] Name: Ming Cerda Age: 86 yrs Sex: Male : 1930 Arrival Date: 03/26/2016 Time: 00:40 Bed Admit Hold MD: Disposition: 03/26/16 03:53 Hospitalization ordered by Claude Boogie for Inpatient Admission. Preliminary diagnosis is Other intestinal obstruction. - Bed requested for 4 [place]. - Status is Inpatient Admission. mb9 - Condition is Stable. - Problem is new. - Symptoms are unchanged. Historical: - Allergies: No known drug Allergies; - Home Meds: 1. metoprolol succinate 50 mg Tb24 1 tab once daily 2. Plavix 75 mg Oral tab 1 tab once daily 3. hydralazine 50 mg Oral tab 1 tab three times a day 4. furosemide 20 mg Oral tab 1 tab once daily 5. losartan 100 mg oral tab 0.5 tab twice a day 6. Nifedical XL 60 mg oral tr24 1 tab once daily 7. simvastatin 40 mg Oral tab 1 tab once daily 8. lisinopril 40 mg Oral tab 1 tab once daily 9. aspirin 325 mg Oral tab 1 tab once daily 10. Vitamin D Oral 50,000 unit weekly 11. metformin 1,000 mg Oral tr24 1 tab once daily 12. coenzyme Q10 oral 100-200 oral daily 13. Lantus 100 unit/mL Sub-Q soln 15 unit daily 14. meclizine 12.5 mg Oral chew twice a day 15. Coricidin HBP Cough and Cold 4-30 mg oral tab as needed 16. loratadine 10 mg Oral TbDL 1 tab once daily - PMHx: Hypertension; hyperlipidemia; Diabetes - NIDDM: controlled; Seasonal Allergies; - PSHx: Right inguinal hernia repair; Prostatectomy (1998); Triple bypass; Cardiac stents; right leg bypass; left shoulder rotator cuff; Cholecystectomy; right carotid endarectomy; left ocular lens; right ocular lens; chest biopsy; chest wall CA removed; left inguinal hernia repair; - Social history: Smoking status: Patient states was never smoker of tobacco. No barriers to communication noted, The patient speaks fluent Urdu, Speaks appropriately for age. - : The pt / caregiver states he / she is on anticoagulants: Plavix. Home medication list is obtained from the patient. - Exposure Risk Screening:: None identified. Vital Signs: 03/26 01:05 BP 207 / 87; Pulse 74; Resp 18; Temp 97.4(O); Pulse Ox 96% on R/A; Pain 4/10; jmb 01:25 BP 180 / 81 (auto/); nn1 01:25 Pulse 64 MON; Pulse Ox 96% ; nn1 01:30 BP 163 / 73 (auto/); nn1 01:31 Pulse 66 MON; Pulse Ox 95% ; nn1 01:45 BP 185 / 77 (auto/); nn1 01:46 Pulse 66 MON; Pulse Ox 95% ; nn1 02:00 BP 141 / 66 (auto/); nn1 02:00 Pulse 58 MON; Pulse Ox 94% ; nn1 02:15 BP 135 / 61 (auto/); nn1 02:16 Pulse 56 MON; Pulse Ox 93% ; nn1 02:30 BP 120 / 56 (auto/); nn1 02:31 Pulse 54 MON; Pulse Ox 92% ; nn1 02:45 BP 138 / 59 (auto/); nn1 02:46 Pulse 58 MON; Pulse Ox 91% ; nn1 03:09 Pulse 68 MON; nn1 03:10 BP 134 / 58 (auto/); nn1 03:15 BP 164 / 73 (auto/); nn1 03:15 Pulse 74 MON; Pulse Ox 92% ; nn1 03:30 BP 159 / 67 (auto/); nn1 03:31 Pulse 72 MON; Pulse Ox 87% ; nn1 04:18 BP 145 / 65; Pulse 68; Resp 18; Temp 98.3(TE); Pulse Ox 93% on 2 lpm NC; nn1 12:05 BP 159 / 62; Pulse 84; Resp 18; Temp 97.5; Pulse Ox 94% ; Pain 0/10; hs1 MDM: 01:06 ECG WITH READING ER PHYS+CARDIAG ordered. EDMS 01:19 IV Saline Lock ordered. cs11 01:20 CBC with Diff Ordered. EDMS 01:20 MED Profile Ordered. EDMS 01:20 Liver Profile Ordered. EDMS 01:20 Amylase Ordered. EDMS 01:20 Lipase Ordered. EDMS 01:20 Cardiac Marker Panel Ordered. EDMS 01:20 Urinalysis Ordered. EDMS 01:20 Urine Culture Ordered. EDMS 01:21 NS 0.9% 500 ml IV at bolus once ordered. cs11 01:21 Lactic Acid (Li tube on ice) Ordered. EDMS 01:21 CT ABD & PELVIS: IV and Oral Contrast Ordered. EDMS 01:34 Diatrizoate Meglumine & Sodium Liquid 10 ml PO once; mix in 290cc of water; 1st cup at nn1 0140, 2nd cup at 0210 ordered. 01:49 Financial registration complete. hs2 01:50 [facility] Payment Agreement was scanned into [employer] and attached to record. hs2 01:50 CBC with Diff Reviewed. cs11 02:18 MED Profile Reviewed. cs11 02:18 Liver Profile Reviewed. cs11 02:18 Amylase Reviewed. cs11 02:18 Lipase Reviewed. cs11 02:18 Cardiac Marker Panel Reviewed. cs11 02:39 morphine 4 mg IVP once ordered. cs11 03:46 NG/OG Tube 18Fr to L.I.S. with hourly monitoring for placement ordered. cs11 03:47 BED REQUEST+ADM ordered. EDMS 03:50 Lactic Acid (Li tube on ice) Reviewed. cs11 03:52 NS 0.9% 1000 ml IV at 250 mL/hr continuous ordered. cs11 04:01 Admission Orders was scanned into [employer] and attached to record. tmm1 08:10 LR Solution 1000 ml IV at 100 mL/hr once ordered. hs1 08:52 Admission / Observation Status ordered. EDMS 08:53 CLEAR LIQUIDS DIET ordered. EDMS 09:32 T-Sheet-- Draft Copy was scanned into [employer] and attached to record. gb 12:19 Fingerstick Blood Sugar Ordered. EDMS 13:55 heparin 5000 units Sub-Q once ordered. mb9 03/27 10:39 ECG/EKG was scanned into [employer] and attached to record. gb 10:39 Radiology Report was scanned into [employer] and attached to record. gb Administered Medications: 03/26 01:44 Drug: NS 0.9% 500 ml [sodium chloride 0.9 % intravenous solution] Route: IV; Rate: nn1 bolus; Site: left antecubital; 02:37 Drug: Diatrizoate Meglumine & Sodium 10 ml [diatrizoate meglumine and diat.sodium 66 nn1 %-10 % oral solution (10 mL)] Route: PO; 02:47 Drug: morphine 4 mg [morphine 4 mg/mL intravenous cartridge (1 mL)] Route: IVP; Site: nn1 left antecubital; 04:13 Drug: NS 0.9% 1000 ml [sodium chloride 0.9 % intravenous solution] Route: IV; Rate: 250 nn1 mL/hr; Site: left antecubital; 08:09 Follow up: IV Status: Completed infusion; IV Intake: 800ml hs1 08:10 Drug: LR 1000 ml [lactated ringers intravenous solution] Route: IV; Rate: 100 mL/hr; hs1 Site: left antecubital; 14:06 Drug: heparin 5000 units [heparin (porcine) 5,000 unit/mL injection solution (1 mL)] mb9 {Co-Signature: [email or web address] (Joelle Friedman RN).} Route: Sub-Q; Site: abdomen; Signatures: Dispatcher [employer] EDSarah Contreras, RN RN [facility] Obdulia Bynum, Reg Reg gb Ange Alvarado RN RN hs1 Lucian Cohn, DO cs11 McLear, Keysha, CLASS A REGIONAL TRUCK DRIVER CLASS A REGIONAL TRUCK DRIVER tmm1 Ned ForrestRN Lewis GoldmanRN RN mb9 Mary Giang RN RN nn1 Mary Jiménez, Reg Reg hs2 Joelle Friedman RN kr3 The chart was reviewed and I authenticate all verbal orders and agree with the evaluation and treatment provided.Attachments: 01:50 [facility] Payment Agreement hs2 04:01 Admission Orders tmm1 09:32 T-Sheet-- Draft Copy gb 03/27 10:39 ECG/EKG gb Chart Complete MTDD
--- NOTE | 2016-03-28 15:15 | EDDOCDS ---
Nurse's Notes [facility] Name: Ming Cerda Age: 86 yrs Sex: Male : 1930 Arrival Date: 03/26/2016 Time: 00:40 Bed Admit Hold Private MD: Diagnosis: Other intestinal obstruction Presentation: 03/26 00:51 Presenting complaint: Patient states: Patient reports having chest pain and abdominal jmb pain. Patient reports that symptoms have been going for 3-4 hours. Patient reports he feels like he is having a heart attack. Adult Sepsis Screening: The patient does not have new or worsening altered mentation. Patient's respiratory rate is less than 22. Systolic blood pressure is greater than 100. Patient has a qSOFA score of 0- Negative Sepsis Screen. Suicide/Homicide risk assessment- the patient denies having any suicidal and/or homicidal ideations and does not present with any other emotional, behavioral or mental health complaints. Status: Patient is not a director human services or dependent. Transition of care: patient was not received from another setting of care. 00:51 Acuity: LIA Level 3 jmb 00:51 Method Of Arrival: Walkin/Carried/Asstd jmb Triage Assessment: 00:58 General: Appears in no apparent distress, Behavior is appropriate for age, cooperative. jmb Pain: Location: abdomen Pain currently is 4 out of 10 on a pain scale. Neurological: Level of Consciousness is awake, alert, obeys commands, Oriented to person, place, time, Speech is normal, Facial symmetry appears normal, Facial symmetry: tongue is midline. Cardiovascular: No deficits noted. Respiratory: Airway is patent Respiratory effort is even, unlabored, Respiratory pattern is regular, symmetrical. GI: Abdomen is non- distended. Derm: Skin is pink, warm & dry. Musculoskeletal: Range of motion intact in all extremities. Historical: - Allergies: No known drug Allergies; - Home Meds: 1. metoprolol succinate 50 mg Tb24 1 tab once daily 2. Plavix 75 mg Oral tab 1 tab once daily 3. hydralazine 50 mg Oral tab 1 tab three times a day 4. furosemide 20 mg Oral tab 1 tab once daily 5. losartan 100 mg oral tab 0.5 tab twice a day 6. Nifedical XL 60 mg oral tr24 1 tab once daily 7. simvastatin 40 mg Oral tab 1 tab once daily 8. lisinopril 40 mg Oral tab 1 tab once daily 9. aspirin 325 mg Oral tab 1 tab once daily 10. Vitamin D Oral 50,000 unit weekly 11. metformin 1,000 mg Oral tr24 1 tab once daily 12. coenzyme Q10 oral 100-200 oral daily 13. Lantus 100 unit/mL Sub-Q soln 15 unit daily 14. meclizine 12.5 mg Oral chew twice a day 15. Coricidin HBP Cough and Cold 4-30 mg oral tab as needed 16. loratadine 10 mg Oral TbDL 1 tab once daily - PMHx: Hypertension; hyperlipidemia; Diabetes - NIDDM: controlled; Seasonal Allergies; - PSHx: Right inguinal hernia repair; Prostatectomy (1998); Triple bypass; Cardiac stents; right leg bypass; left shoulder rotator cuff; Cholecystectomy; right carotid endarectomy; left ocular lens; right ocular lens; chest biopsy; chest wall CA removed; left inguinal hernia repair; - Social history: Smoking status: Patient states was never smoker of tobacco. No barriers to communication noted, The patient speaks fluent [place] Islander, Speaks appropriately for age. - : The pt / caregiver states he / she is on anticoagulants: Plavix. Home medication list is obtained from the patient. - Exposure Risk Screening:: None identified. Screenin:56 Screening information is obtained from the patient. Fall risk: At risk due to age, The hs1 following interventions are performed due to a positive Fall Risk Screen: Fall Risk is added to Special Handling on the patient Summary Screen. A Fall Risk Bracelet was applied to the patient. Side Rails are placed in the up position. A Call Dubose is given with instruction to call for help when getting out of bed. Fall Alert bracelet is placed on the patient. Assistance ADL's: requires no assistance with activities of daily living. Abuse/DV Screen: The patient / caregiver reports he/she is: not in a situation that causes fear, pain or injury. Nutritional screening: No deficits noted. Advance Directives: There is no active DNR order. home support is adequate. Assessment: 01:44 General: Appears in no apparent distress, comfortable, Behavior is appropriate for age, nn1 cooperative. Pain: Location: right lower quadrant and left lower quadrant Pain currently is 5 out of 10 on a pain scale. Pain radiates to chest Quality of pain is described as dull, Pain began 1999 yesterday Is continuous. Neurological: Level of Consciousness is awake, alert, obeys commands, Oriented to person, place, time. Respiratory: Airway is patent Respiratory effort is even, unlabored, Respiratory pattern is regular, symmetrical, Breath sounds are clear bilaterally. GI: Abdomen is non- distended abdomen feels firm, patient states he does not feel like his abdomen is distended or hardened, states this is his normal state. Patient denies bloated feeling. Bowel sounds present X 4 quads. Abd is tender to palpation in right upper quadrant and right lower quadrant. : No deficits noted. Denies burning with urination, inability to void. Derm: Skin is pink, warm & dry. Musculoskeletal: Circulation, motion, and sensation intact Capillary refill < 3 seconds Range of motion intact in all extremities. 01:47 General: Patient drinking contrast, aware that we are waiting for urine sample. Fluids nn1 infusing per order. Warm blanket applied. . 02:48 General: Patient reporting increased abdominal pain, provider notified and patient nn1 medicated per orders. Patient comfortable, given warm blankets. . Neurological: Level of Consciousness is awake, alert, Oriented to person, place, time. Derm: Skin is normal. 03:42 General: Patient sleeping when this documenter entered the room. Patients oxygen nn1 decreased to 87% on RA when sleeping, 2L oxygen nasal cannula placed on patient, O2 increased to 92%. . 04:13 General: Patients family voiced concerns regarding NG tube and patients nasal nn1 infection. Spoke with Dr. Boogie, instructed to hold NG/OG tube at this time unless patient begins vomiting. Patient and family notified of plan of care at this time. . Neurological: Level of Consciousness is awake, alert. Cardiovascular: Capillary refill < 3 seconds Rhythm is sinus rhythm No ectopy. Respiratory: Airway is patent Respiratory effort is even, unlabored, Respiratory pattern is regular, symmetrical. 05:04 General: Appears in no apparent distress, to be sleeping. Behavior is quiet. nn1 06:05 General: Appears to be sleeping. Behavior is quiet. Respiratory: Airway is patent nn1 Respiratory effort is even, unlabored, Respiratory pattern is regular, symmetrical. Derm: Skin is pink, warm & dry. 07:20 General: Appears in no apparent distress, comfortable, Behavior is appropriate for age, hs1 cooperative. Pain: Denies pain. Neurological: Level of Consciousness is awake, alert, obeys commands. GI: Denies nausea. : Urine is clear, up to urinate at this time. Derm: Skin is pink, warm & dry. normal. 08:06 Reassessment: Patient appears in no apparent distress at this time. Patient denies pain hs1 at this time. Patient states feeling better. Patient states symptoms have improved. Patient states "I think Ill live, I feel much better than I did - wow!" Patients lights dimmed for comfort and patient drifting off back to sleep again. Patient appears comfortable with no issues. Patient aware of NPO (nothing to eat/drink) status. . 09:32 General: Morning medications given at this time. Patient sitting up on side of bed hs1 tolerating sips of water and states he is not in any pain. Patient requests to rest again, so lights dimmed and patient returned to bed. Call dubose within reach. Patient continues to deny pain. . 10:45 General: Appears in no apparent distress, comfortable, Behavior is appropriate for age, hs1 cooperative. General: resting comfortably on stretcher. Using urinal as needed. . Pain: Denies pain. Respiratory: No deficits noted. 11:48 General: Appears in no apparent distress, comfortable, Behavior is appropriate for age, hs1 cooperative. Pain: Denies pain. Neurological: Level of Consciousness is awake, alert, obeys commands, Oriented to person, place, time. Cardiovascular: No deficits noted. Respiratory: No deficits noted. Derm: Skin is pink, warm & dry. normal. 12:48 General: Appears in no apparent distress, comfortable, Behavior is appropriate for age, hs1 cooperative. Pain: Denies pain. Neurological: Level of Consciousness is awake, alert, Oriented to person, place, time. Cardiovascular: Rhythm is regular. Respiratory: No deficits noted. Derm: Skin is pink, warm & dry. normal. 13:32 General: Appears in no apparent distress, comfortable, Behavior is appropriate for age, hs1 cooperative. Pain: Denies pain. Respiratory: No deficits noted. Derm: Skin is pink, warm & dry. normal. Vital Signs: 01:05 BP 207 / 87; Pulse 74; Resp 18; Temp 97.4(O); Pulse Ox 96% on R/A; Pain 4/10; jmb 01:25 BP 180 / 81 (auto/); nn1 01:25 Pulse 64 MON; Pulse Ox 96% ; nn1 01:30 BP 163 / 73 (auto/); nn1 01:31 Pulse 66 MON; Pulse Ox 95% ; nn1 01:45 BP 185 / 77 (auto/); nn1 01:46 Pulse 66 MON; Pulse Ox 95% ; nn1 02:00 BP 141 / 66 (auto/); nn1 02:00 Pulse 58 MON; Pulse Ox 94% ; nn1 02:15 BP 135 / 61 (auto/); nn1 02:16 Pulse 56 MON; Pulse Ox 93% ; nn1 02:30 BP 120 / 56 (auto/); nn1 02:31 Pulse 54 MON; Pulse Ox 92% ; nn1 02:45 BP 138 / 59 (auto/); nn1 02:46 Pulse 58 MON; Pulse Ox 91% ; nn1 03:09 Pulse 68 MON; nn1 03:10 BP 134 / 58 (auto/); nn1 03:15 BP 164 / 73 (auto/); nn1 03:15 Pulse 74 MON; Pulse Ox 92% ; nn1 03:30 BP 159 / 67 (auto/); nn1 03:31 Pulse 72 MON; Pulse Ox 87% ; nn1 04:18 BP 145 / 65; Pulse 68; Resp 18; Temp 98.3(TE); Pulse Ox 93% on 2 lpm NC; nn1 12:05 BP 159 / 62; Pulse 84; Resp 18; Temp 97.5; Pulse Ox 94% ; Pain 0/10; hs1 Vitals: 00:58 Log In Time: March 26, 2016 at 00:40. [facility] ED Course: 00:42 Patient visited by Brian James, Reg. pm4 00:42 Patient moved to Waiting pm4 00:52 Triage Initiated b 00:59 Lucian Cohn DO is Attending Physician. cs11 00:59 Patient visited by Lucian Cohn DO. cs11 00:59 Patient moved to 9 [facility] 01:17 Pt greeted and oriented to ED. Patient advised of names of staff involved in care, ced location of call dubose, wait times and NPO status. Accompanied by Family Member, Patient has correct armband on for positive identification. Placed in gown. Bed in low position. Call light in reach. Side rails up X 1. monitoring manager on. Pulse ox on. NIBP on. 01:17 EKG done. (by ED staff). Reviewed by Lucian Cohn DO. ced 01:18 Patient visited by Arline Resendiz PCA. ced 01:33 Lactic Acid (Li tube on ice) Sent. nn1 01:33 Cardiac Marker Panel Sent. nn1 01:33 Amylase Sent. nn1 01:33 Lipase Sent. nn1 01:33 Liver Profile Sent. nn1 01:34 MED Profile Sent. nn1 01:34 CBC with Diff Sent. nn1 01:47 Inserted saline lock: 20 gauge in left antecubital area and blood collected. The nn1 patient tolerated the procedure well. 01:48 Patient visited by Mary Giang RN. nn1 01:50 [facility] Payment Agreement was scanned into [employer] and attached to record. hs2 02:47 Patient visited by Mary Giang RN. nn1 03:14 Urine Culture Sent. kas2 03:14 Urinalysis Sent. kas2 03:22 Patient visited by Mary Giang RN. nn1 03:44 O2 via nasal cannula \\T\\ 2L/min. nn1 03:53 Claude Boogie DO is Hospitalizing Provider. cs11 04:01 Admission Orders was scanned into [employer] and attached to record. tmm1 04:15 CT ABD & PELVIS: IV and Oral Contrast Returned. EDMS 04:26 Patient moved to Admit Hold sls1 07:56 The patient / caregiver is instructed regarding the plan of care and ED course. hs1 08:08 Patient visited by Ange Alvarado RN. hs1 09:32 T-Sheet-- Draft Copy was scanned into [employer] and attached to record. gb 10:53 Ange Alvarado, DAVID is Primary Nurse. hs1 11:28 Patient visited by Aneg Alvarado RN. hs1 11:43 Patient visited by Ange Alvarado RN. hs1 13:31 No procedures done that require assistance. hs1 14:08 Patient visited by Negar Cortes PCA. ct3 14:08 Diet: CLEAR DIET LIQUID GIVEN TO PATIENT. ct3 03/27 10:39 ECG/EKG was scanned into [employer] and attached to record. gb 10:39 Radiology Report was scanned into [employer] and attached to record. gb Administered Medications: 03/26 01:44 Drug: NS 0.9% 500 ml [sodium chloride 0.9 % intravenous solution] Route: IV; Rate: nn1 bolus; Site: left antecubital; 02:37 Drug: Diatrizoate Meglumine & Sodium 10 ml [diatrizoate meglumine and diat.sodium 66 nn1 %-10 % oral solution (10 mL)] Route: PO; 02:47 Drug: morphine 4 mg [morphine 4 mg/mL intravenous cartridge (1 mL)] Route: IVP; Site: nn1 left antecubital; 04:13 Drug: NS 0.9% 1000 ml [sodium chloride 0.9 % intravenous solution] Route: IV; Rate: 250 nn1 mL/hr; Site: left antecubital; 08:09 Follow up: IV Status: Completed infusion; IV Intake: 800ml hs1 08:10 Drug: LR 1000 ml [lactated ringers intravenous solution] Route: IV; Rate: 100 mL/hr; hs1 Site: left antecubital; 14:06 Drug: heparin 5000 units [heparin (porcine) 5,000 unit/mL injection solution (1 mL)] mb9 {Co-Signature: kr3 (Joelle Friedman RN).} Route: Sub-Q; Site: abdomen; Intake: 08:09 IV: 800.00ml; Total: 800.00ml. hs1 Order Results: Lab Order: CBC with Diff; SPEC'M 03/26/16 01:30 Test: WHITE BLOOD COUNT; Value: 9.9; Range: 4.0-10.0; Units: K/mm3; Status: F Test: RED BLOOD COUNT; Value: 4.29; Range: 4.30-6.10; Abnormal: Below low normal; Units: M/mm3; Status: F Test: HEMOGLOBIN; Value: 12.6; Range: 14.0-18.0; Abnormal: Below low normal; Units: g/dl; Status: F Test: HEMATOCRIT; Value: 38.7; Range: 42.0-52.0; Abnormal: Below low normal; Units: %; Status: F Test: MEAN CORPUSCULAR VOLUME; Value: 90.1; Range: 80.0-96.0; Units: fl; Status: F Test: MEAN CORPUSCULAR HEMOGLOBIN; Value: 29.4; Range: 27.0-33.0; Units: pg; Status: F Test: MEAN CORPUSCULAR HGB CONC; Value: 32.7; Range: 32.0-36.5; Units: g/dl; Status: F Test: RED CELL DISTRIBUTION WIDTH; Value: 12.2; Range: 11.5-14.5; Units: %; Status: F Test: PLATELET COUNT, AUTOMATED; Value: 189; Range: 150-450; Units: k/mm3; Status: F Test: NEUTROPHILS %; Value: 70.2; Range: 36.0-66.0; Abnormal: Above high normal; Units: %; Status: F Test: LYMPH %; Value: 22.0; Range: 24.0-44.0; Abnormal: Below low normal; Units: %; Status: F Test: MONO %; Value: 4.3; Range: 0.0-5.0; Units: %; Status: F Test: EOS %; Value: 1.6; Range: 0.0-3.0; Units: %; Status: F Test: BASO %; Value: 0.3; Range: 0.0-1.0; Units: %; Status: F Test: LARGE UNSTAINED CELL %; Value: 1.6; Range: 0.0-4.0; Units: %; Status: F Test: NEUTROPHILS #; Value: 6.9; Range: 1.8-7.7; Units: K/mm3; Status: F Test: LYMPH #; Value: 2.2; Range: 1.5-4.5; Units: K/mm3; Status: F Test: MONO #; Value: 0.4; Range: 0.0-0.8; Units: K/mm3; Status: F Test: EOS #; Value: 0.2; Range: 0.0-0.50; Units: K/mm3; Status: F Test: BASO #; Value: 0.0; Range: 0.0-0.2; Units: K/mm3; Status: F Test: LARGE UNSTAINED CELL #; Value: 0.2; Range: 0.0-0.4; Units: K/mm3; Status: F Lab Order: MED Profile; SPEC'M 03/26/16 01:30 Test: GLUCOSE, FASTING; Value: 136; Range: 83-110; Abnormal: Above high normal; Units: MG/DL; Status: F Test: BLOOD UREA NITROGEN; Value: 48; Range: 7-18; Abnormal: Above high normal; Units: MG/DL; Status: F Test: CREATININE FOR GFR; Value: 1.48; Range: 0.70-1.30; Abnormal: Above high normal; Units: MG/DL; Status: F Test: GLOMERULAR FILTRATION RATE; Value: 48.2; Range: >35; Status: F Test: SODIUM LEVEL; Value: 145; Range: 136-145; Units: MEQ/L; Status: F Test: POTASSIUM SERUM; Value: 4.7; Range: 3.5-5.1; Units: MEQ/L; Status: F Test: CHLORIDE LEVEL; Value: 110; Range: 98-107; Abnormal: Above high normal; Units: MEQ/L; Status: F Test: CARBON DIOXIDE LEVEL; Value: 26; Range: 21-32; Units: MEQ/L; Status: F Test: ANION GAP; Value: 9; Range: 8-16; Units: MEQ/L; Status: F Test: CALCIUM LEVEL; Value: 9.2; Range: 8.8-10.2; Units: MG/DL; Status: F Test Note: ; Units are mL/min/1.73 m2 Chronic Kidney Disease Staging per NKF: Stage I & II GFR >=60 Normal to Mildly Decreased Stage III GFR 30-59 Moderately Decreased Stage IV GFR 15-29 Severely Decreased Stage V GFR <15 Very Little GFR Left ESRD GFR <15 on [employer] Lab Order: Liver Profile; SPEC'M 03/26/16 01:30 Test: AST/SGOT; Value: 12; Range: 15-37; Abnormal: Below low normal; Units: U/L; Status: F Test: ALT/SGPT; Value: 17; Range: 12-78; Units: U/L; Status: F Test: ALKALINE PHOSPHATASE; Value: 84; Range: 45-117; Units: U/L; Status: F Test: BILIRUBIN,TOTAL; Value: 0.2; Range: 0.2-1.0; Units: MG/DL; Status: F Test: BILIRUBIN,DIRECT; Value: < 0.1; Range: 0.0-0.2; Units: MG/DL; Status: F Test: TOTAL PROTEIN; Value: 7.2; Range: 6.4-8.2; Units: GM/DL; Status: F Test: ALBUMIN; Value: 3.9; Range: 3.2-5.2; Units: GM/DL; Status: F Test: ALBUMIN/GLOBULIN RATIO; Value: 1.18; Range: 1.00-1.93; Status: F Lab Order: Amylase; 03/26/16 01:30 Test: AMYLASE; Value: 89; Range: 25-115; Units: U/L; Status: F Lab Order: Lipase; 03/26/16 01:30 Test: LIPASE; Value: 179; Range: 73-393; Units: U/L; Status: F Lab Order: Cardiac Marker Panel; 03/26/16 01:30 Test: CPK CREATINE PHOSPHOKINASE; Value: 90; Range: 39-308; Units: U/L; Status: F Test: CK-MB VALUE MASS; Value: 1.3; Range: 0.0-3.6; Units: NG/ML; Status: F Test: MB/CK RELATIVE INDEX; Value: 1.44; Range: < OR =4; Status: F Test: TROPONIN I; Value: < 0.02; Range: < 0.10; Units: NG/ML; Status: F Test Note: ; DIAGNOSIS CRITERIA MMB ng/ml Relative Index (RI) NON-AMI < or = 5 N/A LI ZONE > 5 < or = 4 AMI > 5 > 4 Lab Order: Urinalysis; [facility]12 Test: APPEARANCE, URINE; Value: CLEAR; Range: CLEAR; Status: F Test: COLOR, URINE; Value: YELLOW; Range: YELLOW; Status: F Test: PH,URINE; Value: 5.0; Range: 5.0-9.0; Units: UNITS; Status: F Test: SPECIFIC GRAVITY URINE AUTO; Value: 1.021; Range: 1.002-1.035; Status: F Test: PROTEIN, URINE AUTO; Value: 1+; Range: NEGATIVE; Abnormal: Above high normal; Units: mg/dL; Status: F Test: GLUCOSE, URINE (UA) AUTO; Value: NEGATIVE; Range: NEGATIVE; Units: mg/dL; Status: F Test: KETONE, URINE AUTO; Value: NEGATIVE; Range: NEGATIVE; Units: mg/dL; Status: F Test: UROBILINOGEN, URINE AUTO; Value: 0.2; Range: 0.0-2.0; Units: mg/dL; Status: F Test: BILIRUBIN, URINE AUTO; Value: NEGATIVE; Range: NEGATIVE; Status: F Test: NITRITE, URINE AUTO; Value: NEGATIVE; Range: NEGATIVE; Status: F Test: LEUKOCYTE ESTERASE, URINE AUTO; Value: NEGATIVE; Range: NEGATIVE; Status: F Test: BLOOD, URINE BLOOD; Value: NEGATIVE; Range: NEGATIVE; Status: F Test: WBC, URINE AUTO; Value: 0; Range: 0-3; Units: /HPF; Status: F Test: RBC, URINE AUTO; Value: 0; Range: 0-3; Units: /HPF; Status: F Test: BACTERIA, URINE AUTO; Value: NEGATIVE; Range: NEGATIVE; Status: F Test: SQUAMOUS EPITHELIAL CELL UR AU; Value: 0; Range: 0-6; Units: /HPF; Status: F Test: MUCUS, URINE; Value: SMALL; Range: NEGATIVE; Status: F Test: HYALINE CAST, URINE AUTO; Value: 1; Range: 0-1; Units: /LPF; Status: F Lab Order: Lactic Acid (Li tube on ice); SPEC'M 03/26/16 01:30 Test: LACTIC ACID LEVEL, LACTATE; Value: 1.1; Range: 0.4-2.0; Units: MMOL/L; Status: F Lab Order: Fingerstick Blood Sugar; SPEC'M 03/26/16 12:09 Test: BEDSIDE GLUCOSE; Value: 230; Range: 83-110; Abnormal: Above high normal; Units: MG/DL; Status: F Test Note: ; RN Notified Radiology Order: CT ABD & PELVIS: IV and Oral Contrast Test: CT ABD & PELVIS: IV and Oral Contrast REASON FOR EXAMINATION: Abdomen Pain; ; CLINICAL HISTORY: Abdominal pain.; TECHNIQUE: Multiple axial, sagittal and coronal CT images were obtained through the abdomen and pelvi; s after administration of oral and intravenous contrast material.; COMMENTS:; Changes from prior prostatectomy.; Colonic diverticulosis.; Large bowel fecal stasis.; Small sliding hiatal hernia.; Fluid-filled distended small bowel is more prominent in the right lower quadrant.; The liver is of uniform attenuation without mass or defect. There is no intra or extrahepatic biliary; ductal dilatation. The spleen is normal. The gallbladder is surgically absent. The pancreas is of no; rmal contour and attenuation characteristics. There is no evidence of adrenal mass.; Both kidneys demonstrate prompt and equal nephrograms. The kidneys are normal in size, shape and conf; iguration. There is no evidence of renal or ureteral mass. No renal or ureteral calculi are identifie; d. There is no hydroureter or hydronephrosis.; No evidence for appendicitis. There is no evidence of abdominal ascites or lymphadenopathy.; There is no evidence of intrinsic or extrinsic bladder mass. There is no pelvic ascites or lymphadeno; joan.; Images of the lung bases show no evidence of pleural or parenchymal mass. There are no pleural effusi; ons.; The bony structures are free of lytic or blastic lesions. Multilevel degenerative changes are seen in; volving the thoracolumbar spine. Scattered calcifications are seen involving the aorta and major bran; ches compatible with atherosclerosis.; Sliding hiatal hernia.; IMPRESSION:; Prostatectomy.; Partial small bowel obstruction. A transition zone in the right lower quadrant. No bowel perforation; or pneumatosis intestinalis.; Thank you for your kind referral of this patient.; ; Outcome: 03:53 Decision to Hospitalize by Provider. 11 14:08 The following High Risk Discharge criteria are identified: None. Admitted to Med/Surg mb9 accompanied by tech. Condition: good Condition: stable Condition: improved. Property :Personal belongings accompany Pt. 14:09 Discharge Assessment: patient administered narcotics - no. CT Study completed. mb9 14:14 Patient left the ED. mb9 Signatures: Dispatcher [employer] EDMS Obdulia Bynum, Reg Reg gb Ange Alvarado, RN RN hs1 Arline Resendiz, ADMINISTRATIVE LIAISON ADMINISTRATIVE LIAISON ced Cortes, Negar, ADMINISTRATIVE LIAISON ADMINISTRATIVE LIAISON ct3 Mary Trinh RN RN sls1 Lucian Cohn, DO cs11 McLear, Keysha, ADMINISTRATIVE LIAISON ADMINISTRATIVE LIAISON tmm1 Ned Forrest RN RN matthewb Lewis ArroyoRN RN mb9 Mary Giang,RN RN nn1 Mary Jiménez, Reg Reg hs2 Yaritza Luna,RN RN [facility]2 Brian James, Reg Reg pm4 Joelle Friedman RN kr3 Corrections: (The following items were deleted from the chart) 14:09 14:08 Discharge Assessment: patient administered narcotics - yes. Patient was admitted mb9 to the hospital or transferred to another facility. mb9 Chart Complete MTDD
--- NOTE | 2016-03-28 15:15 | EDDOCDS ---
Physician Documentation [facility] Name: Ming Cerda Age: 86 yrs Sex: Male : 1930 Arrival Date: 03/26/2016 Time: 00:40 Bed Admit Hold MD: Disposition: 03/26/16 03:53 Hospitalization ordered by Claude Boogie for Inpatient Admission. Preliminary diagnosis is Other intestinal obstruction. - Bed requested for 4 [place]. - Status is Inpatient Admission. mb9 - Condition is Stable. - Problem is new. - Symptoms are unchanged. Historical: - Allergies: No known drug Allergies; - Home Meds: 1. metoprolol succinate 50 mg Tb24 1 tab once daily 2. Plavix 75 mg Oral tab 1 tab once daily 3. hydralazine 50 mg Oral tab 1 tab three times a day 4. furosemide 20 mg Oral tab 1 tab once daily 5. losartan 100 mg oral tab 0.5 tab twice a day 6. Nifedical XL 60 mg oral tr24 1 tab once daily 7. simvastatin 40 mg Oral tab 1 tab once daily 8. lisinopril 40 mg Oral tab 1 tab once daily 9. aspirin 325 mg Oral tab 1 tab once daily 10. Vitamin D Oral 50,000 unit weekly 11. metformin 1,000 mg Oral tr24 1 tab once daily 12. coenzyme Q10 oral 100-200 oral daily 13. Lantus 100 unit/mL Sub-Q soln 15 unit daily 14. meclizine 12.5 mg Oral chew twice a day 15. Coricidin HBP Cough and Cold 4-30 mg oral tab as needed 16. loratadine 10 mg Oral TbDL 1 tab once daily - PMHx: Hypertension; hyperlipidemia; Diabetes - NIDDM: controlled; Seasonal Allergies; - PSHx: Right inguinal hernia repair; Prostatectomy (1998); Triple bypass; Cardiac stents; right leg bypass; left shoulder rotator cuff; Cholecystectomy; right carotid endarectomy; left ocular lens; right ocular lens; chest biopsy; chest wall CA removed; left inguinal hernia repair; - Social history: Smoking status: Patient states was never smoker of tobacco. No barriers to communication noted, The patient speaks fluent Kinyarwanda, Speaks appropriately for age. - : The pt / caregiver states he / she is on anticoagulants: Plavix. Home medication list is obtained from the patient. - Exposure Risk Screening:: None identified. Vital Signs: 03/26 01:05 BP 207 / 87; Pulse 74; Resp 18; Temp 97.4(O); Pulse Ox 96% on R/A; Pain 4/10; jmb 01:25 BP 180 / 81 (auto/); nn1 01:25 Pulse 64 MON; Pulse Ox 96% ; nn1 01:30 BP 163 / 73 (auto/); nn1 01:31 Pulse 66 MON; Pulse Ox 95% ; nn1 01:45 BP 185 / 77 (auto/); nn1 01:46 Pulse 66 MON; Pulse Ox 95% ; nn1 02:00 BP 141 / 66 (auto/); nn1 02:00 Pulse 58 MON; Pulse Ox 94% ; nn1 02:15 BP 135 / 61 (auto/); nn1 02:16 Pulse 56 MON; Pulse Ox 93% ; nn1 02:30 BP 120 / 56 (auto/); nn1 02:31 Pulse 54 MON; Pulse Ox 92% ; nn1 02:45 BP 138 / 59 (auto/); nn1 02:46 Pulse 58 MON; Pulse Ox 91% ; nn1 03:09 Pulse 68 MON; nn1 03:10 BP 134 / 58 (auto/); nn1 03:15 BP 164 / 73 (auto/); nn1 03:15 Pulse 74 MON; Pulse Ox 92% ; nn1 03:30 BP 159 / 67 (auto/); nn1 03:31 Pulse 72 MON; Pulse Ox 87% ; nn1 04:18 BP 145 / 65; Pulse 68; Resp 18; Temp 98.3(TE); Pulse Ox 93% on 2 lpm NC; nn1 12:05 BP 159 / 62; Pulse 84; Resp 18; Temp 97.5; Pulse Ox 94% ; Pain 0/10; hs1 MDM: 01:06 ECG WITH READING ER PHYS+CARDIAG ordered. EDMS 01:19 IV Saline Lock ordered. cs11 01:20 CBC with Diff Ordered. EDMS 01:20 MED Profile Ordered. EDMS 01:20 Liver Profile Ordered. EDMS 01:20 Amylase Ordered. EDMS 01:20 Lipase Ordered. EDMS 01:20 Cardiac Marker Panel Ordered. EDMS 01:20 Urinalysis Ordered. EDMS 01:20 Urine Culture Ordered. EDMS 01:21 NS 0.9% 500 ml IV at bolus once ordered. cs11 01:21 Lactic Acid (Li tube on ice) Ordered. EDMS 01:21 CT ABD & PELVIS: IV and Oral Contrast Ordered. EDMS 01:34 Diatrizoate Meglumine & Sodium Liquid 10 ml PO once; mix in 290cc of water; 1st cup at nn1 0140, 2nd cup at 0210 ordered. 01:49 Financial registration complete. hs2 01:50 [facility] Payment Agreement was scanned into [email or web address] and attached to record. hs2 01:50 CBC with Diff Reviewed. cs11 02:18 MED Profile Reviewed. cs11 02:18 Liver Profile Reviewed. cs11 02:18 Amylase Reviewed. cs11 02:18 Lipase Reviewed. cs11 02:18 Cardiac Marker Panel Reviewed. cs11 02:39 morphine 4 mg IVP once ordered. cs11 03:46 NG/OG Tube 18Fr to L.I.S. with hourly monitoring for placement ordered. cs11 03:47 BED REQUEST+ADM ordered. EDMS 03:50 Lactic Acid (Li tube on ice) Reviewed. cs11 03:52 NS 0.9% 1000 ml IV at 250 mL/hr continuous ordered. cs11 04:01 Admission Orders was scanned into [email or web address] and attached to record. tmm1 08:10 LR Solution 1000 ml IV at 100 mL/hr once ordered. hs1 08:52 Admission / Observation Status ordered. EDMS 08:53 CLEAR LIQUIDS DIET ordered. EDMS 09:32 T-Sheet-- Draft Copy was scanned into [email or web address] and attached to record. gb 12:19 Fingerstick Blood Sugar Ordered. EDMS 13:55 heparin 5000 units Sub-Q once ordered. mb9 03/27 10:39 ECG/EKG was scanned into [email or web address] and attached to record. gb 10:39 Radiology Report was scanned into [email or web address] and attached to record. gb Administered Medications: 03/26 01:44 Drug: NS 0.9% 500 ml [sodium chloride 0.9 % intravenous solution] Route: IV; Rate: nn1 bolus; Site: left antecubital; 02:37 Drug: Diatrizoate Meglumine & Sodium 10 ml [diatrizoate meglumine and diat.sodium 66 nn1 %-10 % oral solution (10 mL)] Route: PO; 02:47 Drug: morphine 4 mg [morphine 4 mg/mL intravenous cartridge (1 mL)] Route: IVP; Site: nn1 left antecubital; 04:13 Drug: NS 0.9% 1000 ml [sodium chloride 0.9 % intravenous solution] Route: IV; Rate: 250 nn1 mL/hr; Site: left antecubital; 08:09 Follow up: IV Status: Completed infusion; IV Intake: 800ml hs1 08:10 Drug: LR 1000 ml [lactated ringers intravenous solution] Route: IV; Rate: 100 mL/hr; hs1 Site: left antecubital; 14:06 Drug: heparin 5000 units [heparin (porcine) 5,000 unit/mL injection solution (1 mL)] mb9 {Co-Signature: [id number] (Joelle Friedman RN).} Route: Sub-Q; Site: abdomen; Signatures: Dispatcher [employer] EDSarah Contreras, RN RN [facility] Obdulia Bynum, Reg Reg gb Ange Alvarado RN RN hs1 Lucian Cohn, DO cs11 McLear, Keysha, [employer] tmm1 Ned ForrestRN Lewis GoldmanRN RN mb9 Mary Giang RN RN nn1 Mary Jiménez, Reg Reg hs2 Joelle Friedman RN kr3 The chart was reviewed and I authenticate all verbal orders and agree with the evaluation and treatment provided.Attachments: 01:50 [facility] Payment Agreement hs2 04:01 Admission Orders tmm1 09:32 T-Sheet-- Draft Copy gb 03/27 10:39 ECG/EKG gb Chart Complete MTDD
== END 2016-03-28 10:44 | disposition home or self-care (01) | DRG 390 ==
LOC: M ED 00:40 → M ED INP 03:55 → M MSPAV 14:24
PROVIDERS: ADMIT Surgery; ATTEND Surgery
DX: K56.60 Unspecified intestinal obstruction (principal); I10 Essential (primary) hypertension; E11.9 Type 2 diabetes mellitus without complications; E78.5 Hyperlipidemia, unspecified; I25.10 Atherosclerotic heart disease of native coronary artery without angina pectoris

== ENCOUNTER 2017-01-29 12:14 | Observation (INO) | payer OTHER ==
[~2017-01-29] VITALS: Ht 172.7 cm; Wt 70.4 kg
[~2017-01-29 12:14] MED LIST changes: +ASPI325T PO; +ASPI325T24 PO; -ASPI32ECTA PO; +CO Q100C PO; +CORITAB5 PO; -DOCU100C PO; +DOCU100C16 PO; +HYDR-3911 PO; -HYDR-4267 PO; +INSULANT SC; +LORA10TA2 PO; +MECL12.575 PO; +METF10004 PO; -METO-207 PO; +METO1TAB7 PO; +MUPI2OI EXT; +PLAV1TAB2 PO
[2017-01-29] MEDS ORDERED: LEXA1TAB PO (12:34)
[2017-01-29] MEDS ORDERED: LORA10CA PO (12:34)
[2017-01-29] MEDS ORDERED: NS 500 ML IV ONE (14:00)
[2017-01-29 14:05] LABS: BASO % 0.5 % (0.0-1.0); EOS % 0.5 % (0.0-3.0); IMMATURE GRANULOCYTE % 0.4 % (0-0); LYMPH # 1.6 10^3/uL (1.5-4.5); LYMPH % 19.2 % (24.0-44.0); MEAN CORPUSCULAR HEMOGLOBIN 29.3 pg (27.0-33.0); MEAN CORPUSCULAR HGB CONC 32.2 g/dl (32.0-36.5); MEAN CORPUSCULAR VOLUME 90.8 fl (80.0-96.0); MONO # 0.6 10^3/uL (0.0-0.8); MONO % 6.8 % (0.0-5.0); NEUTROPHILS # 6.2 10^3/uL (1.8-7.7); NEUTROPHILS % 72.6 % (36.0-66.0); PLATELET COUNT, AUTOMATED 217 10^3/uL (150-450); RED CELL DISTRIBUTION WIDTH 12.8 % (11.5-14.5); WHITE BLOOD COUNT 8.6 10^3/uL (4.0-10.0)
[2017-01-29 14:35] LABS: ALBUMIN 3.8 GM/DL (3.2-5.2); BILIRUBIN,TOTAL 0.2 MG/DL (0.2-1.0); CALCIUM LEVEL 9.6 MG/DL (8.8-10.2); CREATININE FOR GFR 2.01 MG/DL (0.70-1.30); GLOMERULAR FILTRATION RATE 33.9 (>35); TOTAL PROTEIN 7.6 GM/DL (6.4-8.2)
[2017-01-29 15:10] LABS: POTASSIUM SERUM 5.8 MEQ/L (3.5-5.1)
[2017-01-29] MEDS ORDERED: SOD POLYSTYRENE SULFONATE SUSP 15 GM/60 ML UD PO ONE (15:15)
--- NOTE | 2017-01-29 16:40 | REP ---
Urinary tract sonogram: History: Acute renal failure Comparison: No comparison study. Findings: Scanning at the level of the urinary bladder shows no abnormality. Renal cortical echogenicity pattern is normal bilaterally and contours are smooth. There is no evidence of hydronephrosis, cyst, mass, or calculus in either kidney. The right kidney measures 10.9 x 5.0 x 4.9 cm. There is a 1.1 cm cyst in the upper pole right kidney and a 1.4 cm cyst is seen in the lower pole. Left renal dimensions are 10.4 x 4.0 x 5.5 cm. There is a 1.1 cm cyst in the upper pole of the left kidney. Impression: Small bilateral renal cysts, otherwise unremarkable urinary tract sonography. Signed by Jakub Vogt MD 01/29/2017 04:31 P
[2017-01-29] MEDS ORDERED: ONDANSETRON 4MG/2ML VIAL (J2405) IV PRN (18:30)
[2017-01-29] MEDS ORDERED: ACETAMINOPHEN TAB 650MG DOSE (2X325MG) PO PRN (18:30)
[2017-01-29] MEDS ORDERED: GLUCAGON FOR INJ 1 MG VIAL (J1610) SC PRN (18:30)
[2017-01-29] MEDS ORDERED: GLUCOSE 4 GM CHEW TABLET PO PRN (18:30)
[2017-01-29] MEDS ORDERED: DEXTROSE 50% 50 ML SYRINGE IV PRN (18:30)
--- NOTE | 2017-01-29 18:41 | HPEPDOC ---
General Date of Admission Jan 29, 2017 at 18:17 Attending Physician: MARIA T MAHMOOD MD Chief Complaint The patient is a 86-year-old male admitted with a reason for visit of Acute Renal Failure. History of Present Illness 86-year-old male with past medical history of hypertension, dyslipidemia, diabetes mellitus, CAD status post CABG, and TIA who presents to the ER with a chief complaint of increased lethargy and malaise over the last 24-48 hours. The patient states that he is usually very active at baseline and walks about a half a mile a day. However, over the past 24-48 hours he has been feeling increasingly tired and has not been able to perform at his functional baseline. The patient does note that he has been having some sinus congestion, runny nose , and a cough which has accompanied his generalized weakness. He denies any sick contacts and has not recorded any fevers but does note that he has felt subjectively warm. He denies any acute complaints of a productive cough, chest pain, palpitations, abdominal pain, or any nausea/vomiting. However, patient does note that he has had 2 episodes of diarrhea per day over the last 4 days, which resolved with [id number] antidiarrheals. In the ER, the patient was noted to have a slight elevation in his serum creatinine and serum potassium levels. The patient will be admitted for further evaluation and management to the hospitalist service. Home Medications Scheduled (Co Q-10) 100 Mg Cap, 100 MG PO DAILY, (Reported) LUNCHTIME (Loratadine) 10 Mg Cap, 10 MG PO QHSP, (Reported) Aspirin (Aspirin) 325 Mg Tab, 325 MG PO DAILY, (Reported) DINNERTIME Clopidogrel Bisulfate (Plavix) 75 Mg Tab, 75 MG PO DAILY, (Reported) Escitalopram Oxalate (Lexapro) 10 Mg Tab, 10 MG PO DAILY, (Reported) Furosemide (Furosemide) 20 Mg Tab, 20 MG PO DAILY, (Reported) Hydralazine HCl (Hydralazine HCl) 50 Mg Tab, 50 MG PO TID, (Reported) Insulin Glargine (Lantus) 1 Units/0.01 Ml Susp, 15 UNITS SC DAILY, (Reported) AFTER LUNCHTIME Lisinopril (Lisinopril) 40 Mg Tab, 40 MG PO DAILY, (Reported) DINNERTIME Losartan Potassium (Losartan Potassium) 50 Mg Tab, 50 MG PO BID, (Reported) Metformin Hydrochloride (Metformin HCl) 1,000 Mg Tab, 1,000 MG PO DAILY, ( Reported) DINNERTIME Metoprolol Succinate (Metoprolol Succinate ER) 50 Mg Tab, 50 MG PO DAILY, ( Reported) Nifedipine (Nifedical Xl) 60 Mg Tab, 60 MG PO DAILY, (Reported) Simvastatin - High Dose (Simvastatin) 40 Mg Tab, 40 MG PO DAILY, (Reported) DINNERTIME Vitamin D (Drisdol) 50,000 Unit Cap, 50,000 UNIT PO 1XWK, (Reported) FRIDAY NIGHTS Scheduled PRN Meclizine HCl (Meclizine HCl) 12.5 Mg Tab, 12.5 MG PO BID PRN for DIZZINESS, ( Reported) Allergies Coded Allergies: No Known Allergies (Verified Allergy, Unknown, 07/29/07) Past Medical History Medical History As noted in HPI. Surgical History 1. Right inguinal hernia repair. 2. Prostatectomy. 3. Cardiac bypass. 4. Right leg bypass. 5. Left shoulder rotator cuff repair. 6. Cholecystectomy. 7. Right carotid endarterectomy. 8. Left inguinal hernia repair. Social History * Smoker: Denies Alcohol: Denies Drugs: denies Lives with his at home, has a slab puller check on him daily. His functionally independent at baseline, and states that he walks a half a mile a day without any assistive devices. Review of Symptoms Other systems 10 point review of systems negative unless otherwise specified in HPI. Physical Examination General Exam: Positive: Alert, Cooperative, No Acute Distress ENT Exam: Positive: Atraumatic, Mucous membr. moist/pink Neck Exam: Negative: JVD Chest Exam: Positive: Clear to auscultation, Normal air movement Heart Exam: Positive: Rate Normal, Normal S1, Normal S2 Telemetry: Positive: Sinus Abdomen Exam: Positive: Soft, Negative: Tenderness Extremity Exam: Negative: Tenderness, Swelling Psych Exam: Positive: Oriented x 3 Vital Signs Vital Signs Date Time Temp Pulse Resp B/P (MAP) Pulse Ox O2 Delivery O2 Flow Rate FiO2 01/29/17 18:10 138/60 (86) 01/29/17 18:03 56 01/29/17 17:03 94 01/29/17 16:48 16 01/29/17 12:15 96.3 Room Air Laboratory Data Labs 24H Laboratory Tests 2 01/29/17 13:57: Immature Granulocyte % (Auto) 0.4H, White Blood Count 8.6, Red Blood Count 3.69L , Hemoglobin 10.8L, Hematocrit 33.5L, Mean Corpuscular Volume 90.8, Mean Corpuscular Hemoglobin 29.3, Mean Corpuscular Hemoglobin Concent 32.2, Red Cell Distribution Width 12.8, Platelet Count 217, Neutrophils (%) (Auto) 72.6H, Lymphocytes (%) (Auto) 19.2L, Monocytes (%) (Auto) 6.8H, Eosinophils (%) (Auto) 0.5, Basophils (%) (Auto) 0.5, Neutrophils # (Auto) 6.2, Lymphocytes # (Auto) 1.6, Monocytes # (Auto) 0.6, Eosinophils # (Auto) 0.0, Basophils # (Auto) 0.0, Immature Granulocyte # (Auto) 0.0, Nucleated Red Blood Cells % (auto) 0.0, Anion Gap 5L, Glomerular Filtration Rate 33.9L, Blood Urea Nitrogen 71H, Creatinine 2.01H, Sodium Level 140, Potassium Level 5.8H, Chloride Level 107, Carbon Dioxide Level 28, Calcium Level 9.6, Aspartate Amino Transf (AST/SGOT) 9 , Alanine Aminotransferase (ALT/SGPT) 20, Alkaline Phosphatase 65, Total Bilirubin 0.2, Total Protein 7.6, Albumin 3.8, Albumin/Globulin Ratio 1.00, Thyroid Stimulating Hormone (TSH) 2.150 01/29/17 13:58: Total Creatine Kinase 44, Creatine Kinase MB 1.1, Creatine Kinase MB Relative Index 2.50, Troponin I < 0.02 01/29/17 15:47: Bedside Glucose (Misc Panel) 126H CBC/BMP Laboratory Tests 01/29/17 13:57 Red Blood Count 3.69 L, Mean Corpuscular Volume 90.8, Mean Corpuscular Hemoglobin 29.3, Mean Corpuscular Hemoglobin Concent 32.2, Red Cell Distribution Width 12.8, Neutrophils (%) (Auto) 72.6 H, Lymphocytes (%) (Auto) 19.2 L, Monocytes (%) (Auto) 6.8 H, Eosinophils (%) (Auto) 0.5, Basophils (%) ( Auto) 0.5, Neutrophils # (Auto) 6.2, Lymphocytes # (Auto) 1.6, Monocytes # (Auto ) 0.6, Eosinophils # (Auto) 0.0, Basophils # (Auto) 0.0, Calcium Level 9.6, Aspartate Amino Transf (AST/SGOT) 9, Alanine Aminotransferase (ALT/SGPT) 20, Alkaline Phosphatase 65, Total Bilirubin 0.2, Total Protein 7.6, Albumin 3.8 Plan / VTE VTE Prophylaxis Ordered?: Yes Plan Plan Generalized Weakness, Malaise Likely 2/2 Viral URI, or Gasteroenteritis Patient has been afebrile with a normal WBC here Resp Panel and GI Panel ordered here Blood Cultures pending We will cont to provide supportive treatment and monitor the patients progress PT ordered for functional optimization Chronic Kidney Disease Stage IIIB Baseline Serum Cr ~1.6-1.7, slightly elevated at 2.0 today We will hold nephrotoxic medications Renal ultrasound ordered Gentle IV fluid hydration We will repeat BMP in a.m. Nephrology contacted by the ER Hyperkalemia 2/2 Above Serum potassium noted to be 5.8 EKG with no acute manifestations The patient did receive a dose of Kayexalate in the ER Insulin therapy has also been ordered We will continue to monitor patient on telemetry Repeat serum potassium level in the morning Hypertension, stable Continue regimen as ordered Dyslipidemia Continue statin Diabetes mellitus Insulin sliding scale ordered CAD status post CABG, carotid endarterectomy, PVD Continue aspirin, Plavix, metoprolol, statin Hx of TIA Cont ASA, Statin History of prostate cancer DVT prophylaxis Heparin subcutaneous The patient will be admitted under the service of Dr. Mahmood, who will begin to follow the patient on 01/30/17 at 7 AM. ANGELY BATISTA MD Jan 29, 2017 18:41
[2017-01-29] MEDS ORDERED: LOSA100T36 PO (19:38)
[2017-01-29] MEDS ORDERED: VALA1TAB2 PO (19:39)
[2017-01-29] MEDS: NS 1,500 ML IV SCH (19:51)
[2017-01-29] MEDS: ASPIRIN 325 MG TAB PO SCH (19:52)
[2017-01-29] MEDS: ESCITALOPRAM OXALATE 10 MG TAB (LEXAPRO) PO SCH (19:58)
--- NOTE | 2017-01-29 20:43 | ECGEPIP ---
Stationary ECG Study [facility] - ED Test Date: 2017-01-29 Pat Name: PHU LAGOS Department: Room: - Gender: M Cryptographer: juliane : 1930 Requested By: Milli Pak Order Number: [id number] Reading MD: Milli Pak Measurements Intervals [place] Rate: 52 P: 26 ND: 151 QRS: 58 QRSD: 158 T: 50 QT: 414 QTc: 388 Interpretive Statements SINUS BRADYCARDIA RIGHT BUNDLE BRANCH BLOCK DECREASED RATE 03/26/16 Electronically Signed On 01-29-2017 20:43:37 EST by Milli Pak
[2017-01-29] MEDS: **hydrALAZINE** 50 MG TAB PO SCH (21:00)
[2017-01-29] MEDS: SIMVASTATIN 40 MG TAB PO SCH (21:00)
[2017-01-29] MEDS: HumaLOG INSULIN (NovoLOG) PER UNIT SC SCH (21:00)
[2017-01-29] MEDS: HEPARIN SOD (PORCINE) 5000 UNITS/ML VIAL SC SCH (21:09)
[2017-01-30 01:00] VITALS: BP 138/65
[2017-01-30 04:00] VITALS: BP 124/59
[2017-01-30 08:00] VITALS: BP_SYST 113; BP_SYST 123; BP_SYST 130; BP_DIAS 57; BP_DIAS 60; BP_DIAS 66
[2017-01-30 08:20] LABS: ALBUMIN 3.5 GM/DL (3.2-5.2); ALBUMIN/GLOBULIN RATIO 0.9 (1.00-1.93); BILIRUBIN,TOTAL 0.3 MG/DL (0.2-1.0); CALCIUM LEVEL 8.8 MG/DL (8.8-10.2); CREATININE FOR GFR 1.63 MG/DL (0.70-1.30); GLOMERULAR FILTRATION RATE 43.1 (>35); MAGNESIUM LEVEL 2.4 MG/DL (1.8-2.4); TOTAL PROTEIN 7.4 GM/DL (6.4-8.2)
[2017-01-30 08:23] LABS: POTASSIUM SERUM 5.2 MEQ/L (3.5-5.1)
[2017-01-30 08:31] LABS: MEAN CORPUSCULAR HEMOGLOBIN 29.4 pg (27.0-33.0); MEAN CORPUSCULAR HGB CONC 31.8 g/dl (32.0-36.5); MEAN CORPUSCULAR VOLUME 92.3 fl (80.0-96.0); PLATELET COUNT, AUTOMATED 193 10^3/uL (150-450); RED CELL DISTRIBUTION WIDTH 12.7 % (11.5-14.5)
[2017-01-30] MEDS: NS 1,500 ML IV SCH (08:43)
[2017-01-30] MEDS: HumaLOG INSULIN (NovoLOG) PER UNIT SC SCH ×4 (08:44→20:22)
[2017-01-30] MEDS: HEPARIN SOD (PORCINE) 5000 UNITS/ML VIAL SC SCH ×2 (08:44→20:28)
[2017-01-30] MEDS: CLOPIDOGREL 75 MG TAB PO SCH (08:45)
[2017-01-30] MEDS: NIFEdipine 60 MG XL TAB PO SCH (08:45)
[2017-01-30] MEDS: METOPROLOL SUCC (TopROL XL) 50MG **XL** TAB PO SCH (08:45)
[2017-01-30] MEDS: **hydrALAZINE** 50 MG TAB PO SCH ×3 (08:45→20:27)
[2017-01-30 12:49] LABS: PERCENT SATURATION 24.3 % (19.7-50.0)
--- NOTE | 2017-01-30 12:55 | IPN ---
DATE OF VISIT: 01/30/2017 Mr. Lester is seen this morning during rounds in the emergency room. He was admitted last evening; however, he is still in the emergency room due to nonavailability of bed. He is receiving IV fluid. The patient reports feeling much better today compared with last evening when I saw him. His head feels better and he denies any dizziness or lightheadedness. He has no nausea, vomiting, abdominal pain or diarrhea. He denies any dyspnea or chest pain. PHYSICAL EXAMINATION: Temperature is 97.6 degrees Fahrenheit, heart rate 60 per minute and respiratory rate 18 per minute. Blood pressure 113/57 mmHg and oxygen saturation 98% on room air. Head is atraumatic. Pupils are unequal and right pupil is oblong while the left is circular. Sclera is anicteric. Neck is supple and without JVD or thyroid enlargement. Heart sounds are regular. Lungs clear to auscultation. Abdomen soft and nontender. Bowel sounds are normal and there is no palpable organomegaly. Extremities have no cyanosis or clubbing. Skin has no rash or ulcers. Neurologically he is awake, alert and oriented times three. Today's labs show sodium level 142 and potassium 5.2. BUN 56 and creatinine 1.63. Glucose 119 and calcium 8.8. WBC count is 7.0, hemoglobin 9.9 and hematocrit 31%. PROBLEMS: 1. Acute renal failure superimposed on chronic kidney disease. Kidney function is improving with IV fluid hydration and stopping of metformin, PETERSON inhibitor and angiotensin receptor blockers. I feel that he was dehydrated and hypotensive. He has been on multiple antihypertensive medications. At present will continue with IV fluid hydration and recheck his renal profile tomorrow morning. 2. Hyperkalemia, potassium level has improved significantly. He is currently off PETERSON inhibitor and angiotensin receptor meg. His potassium level is likely to correct by tomorrow. Electrolytes will be checked again tomorrow. 3. Anemia. His anemia is slightly worse, probably he was dehydrated on admission. Iron studies are being added. No need for a transfusion at this point. 4. Hypotension. Blood pressure has improved significantly compared with last evening. He has been started on metoprolol 50 mg daily, nifedipine 60 mg and hydralazine 50 mg t.i.d. I would suggest to hold hydralazine for a systolic blood pressure less than 130 mmHg due to risk of hypotension. Metoprolol and nifedipine will be given only once a day.
--- NOTE | 2017-01-30 12:59 | CR ---
DATE OF CONSULTATION: 01/29/2017 REQUESTING PROVIDER: Chente Guerra DO REASON FOR CONSULTATION: Acute renal failure. The patient is seen in the emergency room shortly after his admission. HISTORY OF PRESENT ILLNESS: Mr. Lester is an 86-year-old gentleman with known history of type 2 diabetes, hypertension, coronary artery disease with prior coronary artery bypass graft (CABG), dyslipidemia and a history of transient ischemic attack. He presented to the emergency room with increased lethargy and malaise. He was found to have acute renal failure. A nephrology consultation was requested by Dr. Chente Guerra, and the patient was seen in the emergency room. PAST MEDICAL AND SURGICAL HISTORY Significant for: 1. History of type 2 diabetes. 2. Hypertension. 3. Dyslipidemia. 4. Coronary artery disease with prior CABG 5. History of TIA. 6. History of depression. PAST SURGICAL HISTORY: Significant for right inguinal hernia repair, prostate surgery, coronary artery bypass surgery, right leg femoral popliteal bypass surgery, left shoulder rotator cuff repair, cholecystectomy, right carotid endarterectomy and left inguinal hernia repair. ALLERGIES: The patient has NO KNOWN DRUG ALLERGIES. HOME MEDICATIONS: His home medications include: - CoQ 10 100 mg daily - loratadine 10 mg daily - aspirin 325 mg daily - Plavix 75 mg daily - Lexapro 10 mg daily - furosemide 20 mg daily - hydralazine 50 mg three times a day - Lantus insulin 15 units daily - lisinopril 40 mg daily - losartan 50 mg twice a day - metformin 1000 mg daily - metoprolol ER 50 mg daily - nifedipine XL 60 mg daily - simvastatin 40 mg daily - vitamin D 50,000 units once a week PERSONAL AND SOCIAL HISTORY: The patient denies any smoking, alcohol or drug use. He lives with his . REVIEW OF SYSTEMS: The patient denies any fever or chills. He reports that his head feels like it is bound. He denies any visual disturbance, nosebleed or sinus problems. Cardiovascular system is negative for dyspnea, chest pain or leg edema. Respiratory system is negative for cough or hemoptysis. Gastrointestinal system is significant for some loose stools a couple of days ago, which were not too significant and has resolved. He denies any abdominal pain or vomiting. Genitourinary system is negative for dysuria or hematuria. Denies any history of kidney stones. Psychosocial system is significant for depression. Neurological system is negative for seizures. He does have a history of transient ischemic attack. Endocrine system is significant for type 2 diabetes. There is no known history of thyroid problems. Hematological system is negative for easy bruising or excessive bleeding. Skin is negative for rash or ulcers. PHYSICAL EXAMINATION: Elderly gentleman laying in the bed without any acute distress. At the time of my visit, his temperature is 97.5 degrees Fahrenheit, heart rate 56 per minute and respiratory rate 18 per minute. Blood pressure 109/56 mmHg and oxygen saturation 98% on room air. His right pupil is oblong and left pupil is circular. Sclera is anicteric. Neck is supple and without jugular venous distention (JVD) or thyroid enlargement. Oral mucosa is moist and healthy. Heart sounds are regular and lungs sound clear to auscultation. Abdomen is soft and nontender and without palpable organomegaly. Bowel sounds are normal. Extremities have no cyanosis or clubbing. Skin has no rash or ulcers. Neurologically, he is awake, alert and oriented times three. There is no focal neurological deficit. LABORATORY DATA: WBC count is 8.6, hemoglobin 10.8 and hematocrit 33.5. Platelets 270. Sodium 140 and potassium 5.8. BUN 71 and creatinine 2.0. Glucose 193 and calcium 9.6. Renal ultrasound done in the emergency room is reviewed independently. Right kidney 10.9 and left kidney 10.4 cm. Bilateral renal cysts were noted but no hydronephrosis, stone or mass. PROBLEMS: 1. Acute renal failure most likely related to dehydration with possible use of metformin. The patient was also on PETERSON inhibitor and angiotensin receptor meg simultaneously. Hypovolemia and hypotension both may have contributed to his acute renal failure. I suggest to stop his metformin and of course diuretics and PETERSON inhibitor and ARB. The patient should be hydrated with IV fluid. 2. Hyperkalemia related to acute renal failure and PETERSON inhibitor and angiotensin receptor use. The patient has already received a dose of Kayexalate. Electrolytes will be checked again tomorrow morning. IV fluids should be continued, which is likely to help with his hyperkalemia. 3. Anemia. The patient also seems to have at least moderate anemia. We will check his iron studies and consider further workup if needed. He has been on aspirin and Plavix. At this point there is no indication for transfusion. 4. Hypertension. The patient was on multiple antihypertensive medications with blood pressure on the low side. I suggest to hold all antihypertensive medications and then restart only one medication or two at a time to prevent recurrent hypotension. His PETERSON inhibitor and angiotensin receptor meg should be held due to acute renal failure. I thank you for involving me in the care of Mr. Lester. I will follow him along with you.
--- NOTE | 2017-01-30 13:13 | IPN ---
DATE: 01/30/2017 SUBJECTIVE: The patient tells me that he is feeling a little bit better today. He is feeling a little bit more steady on his feet. He tells me that he has not had any further diarrhea. He denies chest pain, fevers, shortness of breath, palpitations. OBJECTIVE: VITAL SIGNS: Temperature 97.6, pulse 62, respiratory rate 18, blood pressure 130/66 while laying supine and standing 113/57, oxygen saturation 98% on room air. GENERAL: He is a frail, elderly, man sitting on the edge of his bed. He does not appear to be in any acute distress. He is awake, alert and oriented times three. He is accompanied by his and his caregiver. HEENT: Cranial nerves II-XII appear to be grossly intact. He has dry mucous membranes. No elevation of jugular venous pulse (JVP). CARDIOVASCULAR EXAM: S1, S2, regular. RESPIRATORY EXAM: Clear. ABDOMINAL EXAM: Benign. EXTREMITIES: No clubbing, cyanosis or edema. LABORATORY STUDIES: WBC 7.0, hemoglobin 9.9, platelet count 193. Chemistry panel: Sodium 142, potassium 5.2 down from 5.8, chloride 112, bicarbonate 24, BUN 56 down from 71, creatinine 1.6 down from 2.0. TSH within normal limits. MICROBIOLOGY: Respiratory PCR panel is negative. Blood cultures currently pending. IMAGING: The patient had a renal ultrasound that revealed small bilateral renal cysts, otherwise was unremarkable urinary tract sonography. ASSESSMENT AND PLAN: This is an 86-year-old man who presented with weakness, lethargy and diarrhea found to have acute kidney injury. PROBLEMS: 1. Weakness, malaise and diarrhea, likely related to a viral etiology. It may be self limited. His diarrhea appears to have resolved at this time. He does not have any upper respiratory infection (URI) symptoms. Respiratory PCR panel has been negative. He did present mildly dehydrated and is improving with IV fluids. Physical therapy (PT) has been ordered. 2. Acute on chronic kidney injury. Baseline creatinine is approximately 1.6. He was elevated at the time of admission and appears to have improved with holding of his nephrotoxin medications and IV fluids. 3. Hyperkalemia secondary to the above. It appears to be improving. He did receive Kayexalate and insulin in the emergency room (ER). Will continue to monitor the patient while he is receiving IV fluids. 4. Hypertension. He was mildly hypotensive and orthostatic. It is likely he still mildly dehydrated. He is on metoprolol which is being held with holding parameters. He is also on Procardia and hydralazine. His Lasix and PETERSON inhibitor are on hold. They may likely be a contributing factor to his dehydration. Restart when he is no longer orthostatic and he has been adequately rehydrated. 5. Dyslipidemia. Continue statin. 6. Diabetes. Continue with sliding scale. 7. Coronary artery disease. The patient is on aspirin and Plavix, beta meg and a statin. 8. Transient ischemic attack (TIA). He is on aspirin and statin. 9. Mood disorder. He is on Lexapro. 10. Deep vein thrombosis (DVT) prophylaxis. He is on heparin. DISPOSITION: Pending physical therapy (PT) and improvement in his potassium. I suspect that he will likely be discharged within 24-48 hours.
[2017-01-30 16:40] VITALS: BP_SYST 121; BP_SYST 127; BP_SYST 137; BP_DIAS 60; BP_DIAS 61; BP_DIAS 63
[2017-01-30] MEDS: ASPIRIN 325 MG TAB PO SCH (17:32)
[2017-01-30] MEDS: ESCITALOPRAM OXALATE 10 MG TAB (LEXAPRO) PO SCH (17:32)
[2017-01-30] MEDS: SIMVASTATIN 40 MG TAB PO SCH (20:27)
[2017-01-30 22:00] VITALS: BP 144/68
[2017-01-31 01:10] VITALS: BP_SYST 107; BP_SYST 109; BP_SYST 133; BP_DIAS 56; BP_DIAS 59; BP_DIAS 64
[2017-01-31 06:00] VITALS: BP 134/65
[2017-01-31 07:06] LABS: MEAN CORPUSCULAR HEMOGLOBIN 29.4 pg (27.0-33.0); MEAN CORPUSCULAR HGB CONC 32.3 g/dl (32.0-36.5); MEAN CORPUSCULAR VOLUME 91.1 fl (80.0-96.0); PLATELET COUNT, AUTOMATED 180 10^3/uL (150-450); RED CELL DISTRIBUTION WIDTH 12.6 % (11.5-14.5); WHITE BLOOD COUNT 7.1 10^3/uL (4.0-10.0)
[2017-01-31 07:33] LABS: ALBUMIN 3.2 GM/DL (3.2-5.2); ALBUMIN/GLOBULIN RATIO 1.1 (1.00-1.93); BILIRUBIN,TOTAL 0.2 MG/DL (0.2-1.0); CALCIUM LEVEL 8.4 MG/DL (8.8-10.2); CREATININE FOR GFR 1.48 MG/DL (0.70-1.30); GLOMERULAR FILTRATION RATE 48.1 (>35); POTASSIUM SERUM 4.8 MEQ/L (3.5-5.1); TOTAL PROTEIN 6.1 GM/DL (6.4-8.2)
[2017-01-31] MEDS: CLOPIDOGREL 75 MG TAB PO SCH (08:40)
[2017-01-31 08:41] VITALS: BP 134/65
[2017-01-31] MEDS: NIFEdipine 60 MG XL TAB PO SCH (08:41)
[2017-01-31] MEDS: METOPROLOL SUCC (TopROL XL) 50MG **XL** TAB PO SCH (08:41)
[2017-01-31] MEDS: **hydrALAZINE** 50 MG TAB PO SCH (08:41)
[2017-01-31] MEDS: HEPARIN SOD (PORCINE) 5000 UNITS/ML VIAL SC SCH (08:42)
[2017-01-31] MEDS: HumaLOG INSULIN (NovoLOG) PER UNIT SC SCH (08:42)
--- NOTE | 2017-01-31 12:20 | IPN ---
DATE: 01/31/2017 Mr. Lester is seen this morning on his bedside. He is feeling well and wants to go home. He is tolerating his diet very well. He has no nausea, vomiting or diarrhea. He denies any dizziness or lightheadedness. He has no fever or chills. The patient was hypotensive and dehydrated on admission. His medications have been adjusted. He was hydrated with IV fluid initially which has been stopped. CURRENT MEDICATIONS: Include Plavix 75 mg daily, Toprol XL 50 mg daily, nifedipine XL 60 mg daily, subcu heparin 5000 units every 12 hours, Humalog insulin per sliding scale, hydralazine 50 mg t.i.d. which has been mostly held, Zocor 40 mg daily, aspirin 325 mg daily and Lexapro 10 mg daily. PHYSICAL EXAMINATION: Temperature 98.7 degrees Fahrenheit, heart rate 55 per minute and respiratory rate 18 per minute. Blood pressure 134/65 mmHg and oxygen saturation 97% on room air. His head is atraumatic. Neck is supple and without JVD or thyroid enlargement. Pupils equal and reactive to light and sclera is anicteric. Ears, nose and throat are unremarkable. Heart exam reveals regular S1 and S2. There is no pericardial friction rub. Lung sound clear to auscultation bilaterally. Abdomen is soft and nontender and without palpable organomegaly. Bowel sounds are normal. Extremities have no cyanosis or clubbing. Skin has no rash or ulcers. Neurologically he is awake, alert and oriented times three. Today's labs show WBC count 7.1, hemoglobin 9.3 and hematocrit 28.8. Platelets 180. Sodium 146 and potassium 4.8. BUN 44 and creatinine 1.48. Calcium level 8.4. His iron studies yesterday showed iron level 93 with saturation of 24.3. PROBLEMS: 1. Acute renal failure superimposed on chronic kidney disease. Kidney function has improved since admission with IV fluid hydration. PETERSON inhibitor, angiotensin receptor blockers and diuretic has been on hold. The patient was hydrated with IV fluid and seems well-hydrated now. His oral intake is adequate so no need for further IV fluid. 2. Hypertension. Blood pressure is very well controlled on beta meg and calcium channel meg alone. I do not feel that at this point we should add PETERSON inhibitor or angiotensin receptor meg. Hydralazine has been held most of the time because of parameters. Further medications can be adjusted as an outpatient. 3. Anemia. The patient does have chronic anemia with normal iron studies. It is quite possible that his anemia is related to chronic kidney disease. I will add B12 and folic acid level to his blood work from today. He can be followed up in the office for further evaluation and management of his anemia. 4. Hyperkalemia. Potassium level has corrected to normal range. It was mostly related to acute renal failure and angiotensin receptor meg use. No intervention is needed at this point. DISPOSITION: From a renal standpoint, the patient can be discharged to home. Follow up in my office in a couple of weeks.
--- NOTE | 2017-02-03 10:26 | DSES ---
DATE OF ADMISSION: 01/29/2017 DATE OF DISCHARGE: 01/31/2017 CONSULTANTS: Dr. Scherer DISCHARGE DIAGNOSIS: Acute kidney injury. SECONDARY DIAGNOSES: Dehydration. Hypertension. Hyperkalemia. Dyslipidemia. Diabetes. Coronary artery disease. Transient ischemic attack (TIA). Mood disorder. HOSPITAL COURSE: Patient is an 87-year-old man who presented with weakness and lethargy after having a recent diarrheal illness. He was on a PETERSON inhibitor, an ARB, and a diuretic. He was found to be hypotensive with acute kidney injury. He did improve with (cut off). His renal function has returned to his baseline. Dr. Scherer's help was appreciated during this stay. He has been working with physical therapy and been cleared. SUBJECTIVE: The patient tells me he is feeling well. Has no complaints. OBJECTIVE: VITAL SIGNS: Temperature 98.7, pulse 55, respiratory rate 17, blood pressure 134/65, oxygen saturation 97% on room air. GENERAL: He is a frail, elderly man sitting in a recliner. He does not appear to be in any acute distress. He is awake, alert, oriented times three. HEENT: Cranial nerves II-XII are grossly intact. Moist mucous membranes. No elevation in central venous pressure (CVP). CARDIOVASCULAR: S1, S2, regular. RESPIRATORY EXAM: Is clear. ABDOMINAL EXAM: Is benign. EXTREMITIES: No clubbing, cyanosis, or edema. LABORATORY STUDIES: WBC 7.1, hemoglobin 9.3, platelet count 180. Chemistry panel: Sodium 146, potassium 4.8, chloride 114, bicarbonate 28, BUN 44. Creatinine 1.4, down from initial presentation of 2.0. Microbiology is all negative, as is the renal ultrasound. ASSESSMENT AND PLAN: This is an 87-year-old man who presented with acute kidney injury. PROBLEMS: 1. Acute kidney injury, likely related to angiotensin-converting enzyme (PETERSON) inhibitor, angiotensin receptor meg, and diuretic use in the setting of recent diarrheal illness. He was dehydrated. He has improved with IV fluids and holding of these agents. 2. Hypertension. His blood pressure is well controlled with minimal agents at the present time. As such, he will be discharged on metoprolol 50 mg daily, Procardia 60 mg daily, and hydralazine three times a day. We will hold his PETERSON, ARB. and diuretic. He should followup with Dr. Scherer for further titration of his blood pressure medications. 3. Anemia. He has chronic anemia with normal iron studies, possibly related to chronic disease, and Dr. Scherer is checking B12 and folic acid level, which can be followed up in the clinic. 4. Hyperkalemia, corrected. Likely related to renal failure and PETERSON and ARB combined use. 5. Dyslipidemia. He is continued on a statin. 6. Diabetes. He is on sliding scale. 7. Coronary artery disease. He is on aspirin, Plavix, and a beta-meg as well as a statin. 8. Transient ischemic attack. He is on aspirin and statin. 9. Mood disorder. He is on Lexapro. 10. Deep venous thrombosis (DVT) prophylaxis. He is on heparin. DISPOSITION: The patient is being discharged home. He has been cleared by physical therapy. His clinical symptoms has resolved. He is at his functional baseline. MEDICATIONS AT THE TIME OF DISCHARGE: - aspirin 325 mg nightly - Plavix 75 mg daily - Co-Enzyme Q as per the patient 100 mg nightly - Lexapro 10 mg every evening - hydralazine 50 mg three times a day - Lantus 15 units daily after lunch - loratadine 10 mg nightly - meclizine 12.5 mg twice a day as needed for dizziness - metformin 1 gram every evening - metoprolol succinate extended release 50 mg daily - nifedipine extended release 60 mg daily - simvastatin 40 mg every evening - valacyclovir 1 gram by mouth twice a day as needed for outbreak - vitamin D 50,000 units once a week on Fridays Greater than 30 minutes spent organizing hospitalization and discharge.
== END 2017-01-31 11:47 | disposition home or self-care (01) ==
LOC: M ED 12:14 → M ED INP 18:17 → M MSPAV 01-30 15:39
PROVIDERS: ADMIT Internal Medicine; ATTEND Internal Medicine
DX: N17.9 Acute kidney failure, unspecified (principal); E86.0 Dehydration; I13.10 Hypertensive heart and chronic kidney disease without heart failure, with stage 1 through stage 4 chronic kidney disease, or unspecified chronic kidney disease; E87.5 Hyperkalemia; E78.5 Hyperlipidemia, unspecified; E11.9 Type 2 diabetes mellitus without complications; I25.10 Atherosclerotic heart disease of native coronary artery without angina pectoris; F39 Unspecified mood [affective] disorder; Z86.73 Personal history of transient ischemic attack (TIA), and cerebral infarction without residual deficits; D64.9 Anemia, unspecified; I95.9 Hypotension, unspecified; R53.81 Other malaise; N18.3 Chronic kidney disease, stage 3 (moderate); Z79.899 Other long term (current) drug therapy; Z79.82 Long term (current) use of aspirin; Z79.02 Long term (current) use of antithrombotics/antiplatelets; Z79.4 Long term (current) use of insulin; Z95.1 Presence of aortocoronary bypass graft; Z85.46 Personal history of malignant neoplasm of prostate
CPT/HCPCS: 36415; 76775; 80053; 81001; 82550; 82553; 83550; 83735; 84443; 84484; 85025; 85027; 87040; 87086; 87486; 87581; 87633; 87798; 93005; 96360; 96372; 97161; 99285; G0378; G8978; G8979; G8980

== ENCOUNTER → 2017-03-04 | Outpatient (REF) | payer OTHER ==
[2017-03-04 13:59] LABS: FERRITIN 8 NG/ML (26-388); IRON (FE) 38 UG/DL (65-175); PERCENT SATURATION 10.1 % (19.7-50.0); TOTAL IRON BINDING CAPACITY 375 UG/DL (250-450)
== END ==
LOC: M LAB REF 13:11
DX: D50.9 Iron deficiency anemia, unspecified (principal)
CPT/HCPCS: 83550

== ENCOUNTER → 2017-07-03 | Outpatient (REF) | payer OTHER | LOC: M LAB REF 13:20 | DX: R80.9 Proteinuria, unspecified (principal) | CPT/HCPCS: 84166 ==

== ENCOUNTER → 2019-07-22 | Outpatient (CLI) | payer OTHER ==
[~2019-07-22] MED LIST changes: +ASPI-1 PO; +ASPI-255 PO; -ASPI325T PO; -ASPI325T24 PO; -DRIS50002 PO; +DRIS50003 PO; +LEXA1TAB PO; +LISI40TA PO; +LISI40TA52 PO; -LISI40TAB PO; +LORA10CA PO; -LORA10TA2 PO; +LORA10TA3 PO; -LOSA100T36 PO; +LOSA100T50 PO; -LOSA50TA20 PO; +LOSA50TA88 PO; -MECL-68 PO; -MECL12.575 PO; +MECL12.589 PO; +MECL1TAB31 PO; -SIMV40TA2 PO; +SIMV40TA20 PO; +VALA1TAB5 PO
[2019-07-22 16:19] LABS: ALBUMIN 3.4 GM/DL (3.2-5.2); BILIRUBIN,TOTAL 0.3 MG/DL (0.2-1.0); CALCIUM LEVEL 9.1 MG/DL (8.8-10.2); CHOLESTEROL RISK RATIO 3.283 (<5); CREATININE FOR GFR 1.54 MG/DL (0.70-1.30); GLOMERULAR FILTRATION RATE 45.7 (>35); POTASSIUM SERUM 4.9 MEQ/L (3.5-5.1); TOTAL PROTEIN 6.9 GM/DL (6.4-8.2)
[2019-07-22 19:12] LABS: HEMOGLOBIN A1c 8.2 %
== END ==
LOC: M WUC 13:15
PROVIDERS: ATTEND Internal Medicine
DX: E78.2 Mixed hyperlipidemia (principal); I10 Essential (primary) hypertension; E11.9 Type 2 diabetes mellitus without complications

== ENCOUNTER → 2019-10-20 | Outpatient (CLI) | payer MEDICARE ==
[~2019-10-20] MED LIST changes: +ACET-683 PO; +AMLO1TAB25 PO; +ASPI81TA26 PO; +FLOM0.4C39 PO; +HYDR100T PO; +HYDR100T26 PO; +INSUDET SC; +LOPR1TAB6 PO; +MELA3TAB30 PO; +METO1TAB87 PO; +MIRA3350 PO; +NIFE1TAB51 PO; +NIFE1TAB52 PO; +NIFE90TA20 PO; +PARO20TA4 PO; +PRES10CA2 PO; +QUET1TAB7 PO; +SENO8.6T10 PO; +TRAM50TA2 PO
[2019-10-20 17:49] LABS: ALBUMIN 3.3 GM/DL (3.2-5.2); BILIRUBIN,TOTAL 0.2 MG/DL (0.2-1.0); CALCIUM LEVEL 8.7 MG/DL (8.8-10.2); CHOLESTEROL RISK RATIO 2.728 (<5); CREATININE FOR GFR 1.31 MG/DL (0.70-1.30); GLOMERULAR FILTRATION RATE 55.1 (>35); POTASSIUM SERUM 4.3 MEQ/L (3.5-5.1); TOTAL PROTEIN 6.6 GM/DL (6.4-8.2)
[2019-10-20 20:01] LABS: HEMOGLOBIN A1c 7.5 %
== END ==
LOC: M WUC 11:45
PROVIDERS: ATTEND Internal Medicine
DX: E78.2 Mixed hyperlipidemia (principal); I10 Essential (primary) hypertension; E11.9 Type 2 diabetes mellitus without complications

== ENCOUNTER 2019-12-05 18:40 | Emergency (ER) | payer MEDICARE ==
[~2019-12-05] VITALS: Ht 175.3 cm; Wt 63.6 kg
[~2019-12-05 18:40] MED LIST changes: -ACET-683 PO; -AMLO1TAB25 PO; -ASPI81TA26 PO; -FLOM0.4C39 PO; -HYDR100T PO; -HYDR100T26 PO; -INSUDET SC; -LOPR1TAB6 PO; -MELA3TAB30 PO; -METO1TAB87 PO; -MIRA3350 PO; -NIFE1TAB51 PO; -NIFE1TAB52 PO; -NIFE90TA20 PO; -PARO20TA4 PO; -PRES10CA2 PO; -QUET1TAB7 PO; -SENO8.6T10 PO; -TRAM50TA2 PO
--- NOTE | 2019-12-05 19:53 | REPVR ---
PROCEDURE INFORMATION: Exam: CT Head Without Contrast Exam date and time: 12/05/2019 7:14 PM Age: 89 years old Clinical indication: Injury or trauma; Fall; Blunt trauma (contusions or hematomas); Additional info: Fall, blood thinner TECHNIQUE: Imaging protocol: Computed tomography of the head without contrast. Radiation optimization: All CT scans at this facility use at least one of these dose optimization techniques: automated exposure control; mA and/or kV adjustment per patient size (includes targeted exams where dose is matched to clinical indication); or iterative reconstruction. COMPARISON: CT Head without contrast 03/16/2014 5:02 PM FINDINGS: Brain: There is [id number] parenchymal volume loss. White matter changes are demonstrated in the subcortical, centrum semiovale and periventricular white matter consistent with age related small vessel white matter angiopathic gliosis. 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 Cerebral ventricles: The degree of ventricular dilatation is normal for age and/or degree of atrophy present. Bones/joints: Unremarkable. No acute fracture. Paranasal sinuses: Inflammatory changes left sphenoid sinus. Mastoid air cells: Visualized mastoid air cells are well aerated. Soft tissues: Unremarkable. IMPRESSION: 1. There is [id number] parenchymal volume loss. White matter changes are demonstrated in the subcortical, centrum semiovale and periventricular white matter consistent with age related small vessel white matter angiopathic gliosis. 2. The degree of ventricular dilatation is normal for age and/or degree of atrophy present. 3. No acute intracranial findings. Electronically signed by: Brian Dexter On 12/05/2019 19:53:25 PM
--- NOTE | 2019-12-05 20:13 | REPVR ---
PROCEDURE INFORMATION: Exam: XR Right Hip with Pelvis when Performed Exam date and time: 12/05/2019 8:04 PM Age: 89 years old Clinical indication: Hip pain; Right hip; Additional info: Trauma TECHNIQUE: Imaging protocol: XR Right hip with pelvis when performed. Views: 2 or 3 views. COMPARISON: CT ABD PELVIS WITH CONTRAST 03/26/2016 2:53 AM FINDINGS: Bones/joints: Degenerative arthropathy both hip joints. Osteoporosis. Soft tissues: Multiple surgical clips demonstrated in the prostatic bed consistent with prior prostatectomy. Calcified mesenteric lymph nodes. Vasculature: Atherosclerotic changes in the visualized femoral arteries. IMPRESSION: No acute findings. Electronically signed by: Brian Dexter On 12/05/2019 20:13:47 PM
--- NOTE | 2019-12-05 20:14 | REPVR ---
PROCEDURE INFORMATION: Exam: XR Chest, 1 View Exam date and time: 12/05/2019 8:04 PM Age: 89 years old Clinical indication: Chest pain; Type not specified; Additional info: Trauma TECHNIQUE: Imaging protocol: XR of the chest Views: 1 view. COMPARISON: No relevant prior studies available. FINDINGS: Lungs: Unremarkable. No consolidation. Pleural space: Unremarkable. No pleural effusion. No pneumothorax. Heart/Mediastinum: Unremarkable. No cardiomegaly. Vasculature: Uncoiled thoracic aorta. Bones/joints: Status post sternotomy. IMPRESSION: No acute findings. Electronically signed by: Brian Dexter On 12/05/2019 20:14:26 PM
[2019-12-05 21:16] VITALS: BP 197/81
== END 2019-12-05 21:35 | disposition home or self-care (01) ==
LOC: M ED 18:40
DX: S09.90XA Unspecified injury of head, initial encounter (principal); S73.101A Unspecified sprain of right hip, initial encounter; W19.XXXA Unspecified fall, initial encounter; Y92.099 Unspecified place in other non-institutional residence as the place of occurrence of the external cause; Y93.9 Activity, unspecified; Y99.9 Unspecified external cause status; E11.9 Type 2 diabetes mellitus without complications; E05.90 Thyrotoxicosis, unspecified without thyrotoxic crisis or storm; D75.9 Disease of blood and blood-forming organs, unspecified; N17.9 Acute kidney failure, unspecified; Z86.73 Personal history of transient ischemic attack (TIA), and cerebral infarction without residual deficits; Z87.448 Personal history of other diseases of urinary system; Z85.46 Personal history of malignant neoplasm of prostate; Z95.5 Presence of coronary angioplasty implant and graft; Z95.1 Presence of aortocoronary bypass graft; Z79.4 Long term (current) use of insulin; Z79.82 Long term (current) use of aspirin; Z79.899 Other long term (current) drug therapy

== ENCOUNTER 2019-12-11 14:28 | Inpatient (IN) | payer MEDICARE ==
[~2019-12-11] VITALS: Ht 172.7 cm; Wt 65.3 kg
[2019-12-11 15:24] LABS: BASO # 0.1 10^3/uL (0.0-0.2); BASO % 0.9 % (0.0-1.0); EOS # 0.2 10^3/uL (0.0-0.5); EOS % 1.9 % (0.0-3.0); HEMATOCRIT 35.3 % (42.0-52.0); HEMOGLOBIN 11.2 g/dl (13.5-17.5); LYMPH # 1.8 10^3/uL (1.5-5.0); LYMPH % 22.8 % (24.0-44.0); MEAN CORPUSCULAR HEMOGLOBIN 28.6 pg (27.0-33.0); MEAN CORPUSCULAR HGB CONC 31.7 g/dl (32.0-36.5); MEAN CORPUSCULAR VOLUME 90.3 fl (80.0-96.0); MONO # 0.8 10^3/uL (0.0-0.8); MONO % 9.6 % (0.0-5.0); NEUTROPHILS # 5.2 10^3/uL (1.5-8.5); NEUTROPHILS % 64.5 % (36.0-66.0); PLATELET COUNT, AUTOMATED 248 10^3/uL (150-450); RED BLOOD COUNT 3.91 10^6/uL (4.30-6.10)
[2019-12-11] MEDS ORDERED: INSUDET SC (15:36)
[2019-12-11] MEDS ORDERED: PARO20TA4 PO (15:36)
--- NOTE | 2019-12-11 15:39 | REPVR ---
PROCEDURE INFORMATION: Exam: CT Head Without Contrast Exam date and time: 12/11/2019 2:46 PM Age: 89 years old Clinical indication: Walking, difficulty; Additional info: R/O bleeding TECHNIQUE: Imaging protocol: Computed tomography of the head without contrast. Radiation optimization: All CT scans at this facility use at least one of these dose optimization techniques: automated exposure control; mA and/or kV adjustment per patient size (includes targeted exams where dose is matched to clinical indication); or iterative reconstruction. COMPARISON: CT Head without contrast 12/05/2019 7:08 PM FINDINGS: Brain: Moderate generalized cerebral atrophy. Patchy low-density in the periventricular white matter extending into welsh radiata and centrum semiovale bilaterally. Cerebral ventricles: No ventriculomegaly. Bones/joints: Unremarkable. No acute fracture. Paranasal sinuses: Mucosal thickening present within the ethmoid air cells bilaterally extending into the left sphenoid sinus posteriorly. Left frontal sinus aplastic. Right frontal sinus hypoplastic. Mastoid air cells: Visualized mastoid air cells are well aerated. Soft tissues: Unremarkable. IMPRESSION: 1. No acute findings. 2. Moderately advanced generalized cerebral atrophy 3. Moderate chronic microvascular ischemic change within the deep white matter. Electronically signed by: Marilu Cintron On 12/11/2019 15:39:00 PM
[2019-12-11 15:49] LABS: ACETAMINOPHEN LEVEL 4.1 UG/ML (10.0-30.0); ALBUMIN 3.1 GM/DL (3.2-5.2); ALT/SGPT 58 U/L (12-78); BILIRUBIN,DIRECT < 0.1 MG/DL (0.0-0.2); BILIRUBIN,TOTAL 0.3 MG/DL (0.2-1.0); TOTAL PROTEIN 6.9 GM/DL (6.4-8.2)
[2019-12-11] MEDS ORDERED: IBUPROFEN 600MG TAB PO ONE (16:00)
[2019-12-11] MEDS ORDERED: ONDANSETRON 4MG/2ML VIAL IV ONE (16:30)
[2019-12-11] MEDS ORDERED: MORPHINE 2 MG/ML 1ML VIAL (J2270) IV ONE (16:30)
--- NOTE | 2019-12-11 16:33 | ECGEPIP ---
[facility] - ED Test Date: 2019-12-11 Pat Name: PHU LAGOS Department: Room: - Gender: Male Senior Planning Manager: nr : [id number] Requested By: LEONARDO SALAZAR D.O. Order Number: [id number] Reading MD: Milli Pak Measurements Intervals Dafter Rate: 60 P: 24 LA: 118 QRS: 71 QRSD: 165 T: 41 QT: 461 QTc: 461 Interpretive Statements SINUS RHYTHM WITH SHORT LA INTERVAL RIGHT BUNDLE BRANCH BLOCK SIMILAR 01/29/17 Electronically Signed on 12-11-2019 16:33:31 EDT by Milli Pak
[2019-12-11] MEDS ORDERED: LIDOCAINE 5% (LIDODERM) PATCH TD ONE (17:30)
[2019-12-11] MEDS ORDERED: MIRALAX *UNIT DOSE* 17GM PACKET PO PRN (17:45)
[2019-12-11] MEDS ORDERED: ACETAMINOPHEN 500 MG TAB PO PRN (17:45)
[2019-12-11] MEDS: GASTROGRAFIN SOLUTION 30ML (Q9963) PO SCH ×2 (17:49→18:00)
[2019-12-11] MEDS ORDERED: DRIS50003 PO (17:56)
[2019-12-11] MEDS ORDERED: ASPI81TA26 PO (17:56)
[2019-12-11] MEDS ORDERED: NIFE1TAB51 PO (17:56)
[2019-12-11] MEDS ORDERED: PRES10CA2 PO (17:56)
[2019-12-11] MEDS ORDERED: HYDR100T26 PO (17:56)
[2019-12-11] MEDS ORDERED: MELA3TAB30 PO (17:56)
[2019-12-11 18:00] VITALS: BP 185/68
[2019-12-11 18:45] VITALS: BP 185/68
[2019-12-11] MEDS: hydrALAZINE 20MG/ML 1ML VIAL (J0360 PER 20MG) IV PRN (18:50)
[2019-12-11 20:00] VITALS: BP 142/63
--- NOTE | 2019-12-11 20:23 | REPVR ---
PROCEDURE INFORMATION: Exam: CT Abdomen And Pelvis Without Contrast Exam date and time: 12/11/2019 7:49 PM Age: 89 years old Clinical indication: Abdominal pain; Additional info: No bm, low back pain, abd pain in left and right lower quad TECHNIQUE: Imaging protocol: Computed tomography of the abdomen and pelvis without contrast. Radiation optimization: All CT scans at this facility use at least one of these dose optimization techniques: automated exposure control; mA and/or kV adjustment per patient size (includes targeted exams where dose is matched to clinical indication); or iterative reconstruction. COMPARISON: CT ABD PELVIS WITH CONTRAST 03/26/2016 2:53 AM FINDINGS: Lungs: Coarse linear opacity right lower lobe. Coarse linear opacity in the lingula. Granuloma right middle lobe. Granuloma right lower lobe. Eventration right hemidiaphragm. Heart: Calcification of the aortic annulus and mitral annulus. Liver: 1 cm low-density lesion within the liver segment 6. . Gallbladder and bile ducts: Surgical clips in the gallbladder fossa. The gallbladder is absent. Pancreas: Normal. No ductal dilation. Spleen: Calcifications within the spleen. Adrenals: Normal. No mass. Kidneys and ureters: Right: 2.5 cm low-density lesion lower pole right kidney (-1 H). At least 6 less than 5 mm hyperdense subcapsular lesions in the right kidney. 1 cm low-density lesion upper pole right kidney (0 H). 2.7 mm calcification mid right kidney. Left: Two low-density lesions in the mid left kidney measuring 1.5 cm and 1 cm respectively in maximum diameter with density measurement (2 H). 6.6 mm calcification left renal pelvis appears extrinsic to the collecting system. Stomach and bowel: large amount of stool throughout the colon. Scattered colonic diverticula most numerous in the sigmoid colon. Small sliding hiatal hernia.. No mucosal thickening. Appendix: No evidence of appendicitis. Intraperitoneal space: Unremarkable. No free air. No significant fluid collection. Vasculature: Coronary artery calcification. Lymph nodes: Unremarkable. No enlarged lymph nodes. Urinary bladder: Unremarkable as visualized. Reproductive: Surgical clips in the pelvis from previous prostatectomy. Bones/joints: There has been a median sternotomy. Compression fracture L2 with approximately 30 % loss of height of the vertebral body. No retropulsed fragments. Grade 1 spondylolisthesis at L4-L5 with 4 mm anterolisthesis L5 with respect L4. Healed rib fractures present in the right lateral hemithorax Soft tissues: There is narrowing of the intervening disc space. IMPRESSION: 1. Acute vertebral compression fracture at L2. No retropulsed fragments. 2. Bilateral renal lesions not fully characterized on this unenhanced examination. The hyperdense lesions on the right are likely small hemorrhagic cysts. The low-density lesions bilaterally are likely simple cysts. These have increased in size since the previous study in 2017. Renal ultrasound might be considered if clinically relevant. 3. Large amount of stool throughout the colon suggests constipation 4. Bilateral nonobstructing renal calculi. No hydronephrosis. 5. Small sliding hiatal hernia 6. Six. Colonic diverticulosis. No diverticulitis. 7. 1 cm low-density lesion likely a cyst within the liver segment 6. No change from 2017. No follow-up recommended. Electronically signed by: Marilu Cintron On 12/11/2019 20:22:50 PM
--- NOTE | 2019-12-11 20:31 | HPEPDOC ---
General Date of Admission Dec 11, 2019 at 17:28 Date of Service: Dec 11, 2019 Chief Complaint The patient is a 89-year-old male admitted with a reason for visit of Back Pain/Hypertension/Insomnia. Source: Patient, Family Exam Limitations: Dementia History of Present Illness Mr. Lester is a 89-year-old male with coronary artery disease status post CA BG, TIA, dyslipidemia, diabetes mellitus, and hypertension who comes to the ED for intractable back pain, constipation for 5 days, and insomnia for 6 days. Patient was recently in the ED a week ago. He had a fall. The imaged him, he did not have any fractures and he was sent home. Since then, he's been taking Tylenol for the pain. The pain has not resolved. Pain is located in the lower back. He is inconsistent on or makes the pain better or worse. He tries to find different positions such as sitting, lying down, and standing. He denies any radiation of the pain. Denies any radiation towards the chest or towards the groin. Denies any history of kidney stones. In addition to the pain, he is also had constipation for the past 5 days. Daughter tells me that he's been able to eat and denies any abdominal pain or nausea. The daughter has been telling me that his memory has been worsening in the past week. They describe it as short- term memory loss. They were taken to the bathroom, then about a minute later he has to go to the bathroom. Normally his memory is a little better than this, although the daughter says he does have trouble remembering what he had for meals. Home Medications Scheduled Aspirin (Aspirin EC) 81 Mg Tablet.dr, 81 MG PO QHS, (Reported) Clopidogrel Bisulfate (Plavix) 75 Mg Tab, 75 MG PO DAILY, (Reported) Ergocalciferol (Vitamin D2) (Drisdol) 1,250 Mcg Capsule, 1,250 MCG PO 1XWK, (Reported) FRI. QPM Hydralazine HCl (Hydralazine HCl) 100 Mg Tablet, 100 MG PO BID, (Reported) Insulin Detemir (Levemir) 100 Unit/1 Ml Vial, 12 UNITS SC DAILY, (Reported) Melatonin (Melatonin) 3 Mg Tablet, 3 MG PO QHS, (Reported) Metoprolol Succinate (Metoprolol Succinate) 50 Mg Tab, 50 MG PO DAILY, (Reported) Nifedipine (Nifedipine ER) 60 Mg Tab.er.24, 60 MG PO DAILY, (Reported) Paroxetine HCl (Paroxetine) 20 Mg Tablet, 20 MG PO DAILY, (Reported) Simvastatin (Simvastatin) 40 Mg Tab, 40 MG PO QPM, (Reported) DINNERTIME Vit C/E/Zn/Coppr/Lutein/Zeaxan (Preservision Areds 2 Softgel) 1 Each Capsule, 1 EACH PO BID, (Reported) Allergies Coded Allergies: No Known Allergies (Verified , 07/29/07) Past Medical History Medical History 1. Cataracts 2. TIA 3. CAD status post CABG and cardiac stents 4. Hypercholesterolemia 5. Hypertension 6. Partial small bowel obstruction 7. Prostate cancer 6. Nephrolithiasis 7. Osteoporosis 8. Back pain 9. Diabetes 10. Depression Surgical History 1. Cataract surgery (right eye cataract surgery was unsuccessful) 2. CABG 3. Right leg bypass 4. Right carotid endarterectomy 5. Cholecystectomy 6. Right and left inguinal hernia repair 7. Prostatectomy 8. Left rotator cuff repair Family History Brother: History of coronary artery disease, hypertension Son: History of coronary disease, hypertension, diabetes Social History * Smoker: Denies Alcohol: Denies Drugs: denies A-FIB/CHADSVASC A-FIB History Current/History of A-Fib/PAF?: No Review of Systems Constitutional: Denies: Chills, Fever Eyes: Denies: Vision change ENT: Denies: Dysphagia, Sore Throat Skin: Denies: Rash Pulmonary: Denies: Dyspnea, Cough Cardiovascular: Denies: Chest Pain Gastrointestinal: Reports: Constipation; Denies: Nausea, Abdominal Pain Genitourinary: Denies: Dysuria Musculoskeletal: Reports: Back Pain, Other Symptoms (left-sided CVA tenderness) Neurological: Denies: Weakness Physical Examination General Exam: Positive: Cooperative, Mild Distress Eye Exam: Positive: EOMI; Negative: Sclera icteric ENT Exam: Positive: Atraumatic Neck Exam: Positive: Supple Chest Exam: Positive: Clear to auscultation; Negative: Rales, Rhonchi, Wheezing Heart Exam: Positive: Rate Normal, Regular Rhythm Abdomen Exam: Positive: BS Hypoactive, Tenderness (tender in the right and left lower quadrants) Extremity Exam: Negative: Edema Neuro Exam: Positive: Normal Speech, Cranial Nerves 3-12 NL Psych Exam: Positive: Mental status NL, Mood NL Vital Signs Vital Signs Date Time Temp Pulse Resp B/P (MAP) Pulse Ox O2 Delivery O2 Flow Rate FiO2 12/11/19 17:30 64 12/11/19 17:01 149/85 (106) 12/11/19 16:30 16 12/11/19 16:28 99 12/11/19 14:32 98.3 Room Air Laboratory Data Labs 24H Laboratory Tests 2 12/11/19 15:16: Immature Granulocyte % (Auto) 0.3, Neutrophils (%) (Auto) 64.5, Lymphocytes (%) (Auto) 22.8L, Monocytes (%) (Auto) 9.6H, Eosinophils (%) (Auto) 1.9, Basophils (%) (Auto) 0.9, Neutrophils # (Auto) 5.2, Lymphocytes # (Auto) 1.8, Monocytes # (Auto) 0.8, Eosinophils # (Auto) 0.2, Basophils # (Auto) 0.1, Nucleated Red Blood Cells % (auto) 0.0, Total Bilirubin 0.3, Direct Bilirubin < 0.1, Aspartate Amino Transf (AST/SGOT) 66H, Alanine Aminotransferase (ALT/SGPT) 58, Alkaline Phosphatase 94, Total Protein 6.9, Albumin 3.1L, Albumin/Globulin Ratio 0.8, Acetaminophen Level 4.1L CBC/BMP Laboratory Tests 12/11/19 15:16 Assessment/Plan Mr. Lester is a 89-year-old male with coronary artery disease status post CABG, TIA, dyslipidemia, diabetes mellitus, and hypertension who comes to the ED for intractable back pain, constipation for 5 days, and insomnia for 6 days. His intractable back pain may be secondary to kidney stone versus constipation. Suspecting kidney stone due to inability to find a position that's comfortable. Spoke with the pharmacist about giving a one-time dose of ketorolac since this patient's on dual antiplatelets. One-time of ketorolac is okay. In addition, we'll do lidocaine patch and acetaminophen. Due to the blood pressure, I will have to hold off on IV fluids. Otherwise I'll get a CT of abdomen and pelvis to look for nephrolithiasis and to look for SBO. Plan / VTE VTE Prophylaxis Ordered?: Yes Plan Plan 1. Intractable back pain There is left CVA tenderness. He has inability to find a position is comfortable. May be secondary to nephrolithiasis. No bowel movements for the past 5 days. May be secondary to constipation versus SBO Pending results from CT abdomen and pelvis Lidocaine patch and acetaminophen Only one-time dose of ketorolac due to aspirin and Plavix Daughter is afraid the patient will try to online content developer trying to find a position that's comfortable. Patient will be on fall precautions 2. Constipation/SBO Pending results from CT of the abdomen and pelvis If constipation, patient is on a bowel regimen If SBO, patient will need to be NPO and may need NG tube 3. Dementia/delirium/altered mental status Daughter says that patient's memory has been worsening May be secondary to constipation vs pain vs insomnia Treat underlying cause 4. Insomnia Start seroquel tonight 5. Hypertension Continue metoprolol, nifedipine, hydralazine 6. Coronary artery disease status post stent and CABG Continue statin, dual antiplatelet therapy, beta meg Stable, no active chest pain 7. Diabetes mellitus We'll reduce Levemir in anticipation for nothing by mouth Normally on 12 units daily, if nothing by mouth 6 units daily. 8. DVT prophylaxis LUKEs and DAVID Alexander DO Dec 11, 2019 18:02
[2019-12-11] MEDS ORDERED: HumaLOG INSULIN (NovoLOG) PER UNIT SC SCH (21:00)
[2019-12-11] MEDS ORDERED: GLUCOSE 4GM CHEW TABLET PO PRN (21:30)
[2019-12-11] MEDS ORDERED: DEXTROSE 50% 50 ML SYRINGE IV PRN (21:30)
[2019-12-11] MEDS ORDERED: GLUCAGON INJ 1MG VIAL SC PRN (21:30)
[2019-12-11] MEDS ORDERED: KETOROLAC 30 MG/ML 1ML VIAL IV ONE (22:00)
[2019-12-11] MEDS: QUEtiapine FUMARATE 25 MG TAB PO SCH (22:19)
[2019-12-11] MEDS: ASPIRIN 81 MG ENTERIC TAB PO SCH (22:19)
[2019-12-11] MEDS: **hydrALAZINE** 50 MG TAB PO SCH (22:19)
[2019-12-11] MEDS: PANTOPRAZOLE 40MG TAB (PROTONIX) PO SCH (22:19)
[2019-12-11] MEDS: SIMVASTATIN 40 MG TAB PO SCH (22:20)
[2019-12-11] MEDS: DOCUSATE SODIUM 100 MG CAP PO SCH (22:20)
[2019-12-12] VITALS: BP 154/67
[2019-12-12 04:00] VITALS: BP 159/70
[2019-12-12 05:17] LABS: HEMATOCRIT 30.7 % (42.0-52.0); HEMOGLOBIN 9.6 g/dl (13.5-17.5); MEAN CORPUSCULAR HEMOGLOBIN 28.7 pg (27.0-33.0); MEAN CORPUSCULAR HGB CONC 31.3 g/dl (32.0-36.5); MEAN CORPUSCULAR VOLUME 91.9 fl (80.0-96.0); PLATELET COUNT, AUTOMATED 212 10^3/uL (150-450); RED BLOOD COUNT 3.34 10^6/uL (4.30-6.10); WHITE BLOOD COUNT 7.8 10^3/uL (4.0-10.0)
[2019-12-12] MEDS ORDERED: **NOTE PATIENT COMMENT** MISC XX ONE (05:30)
[2019-12-12 05:43] LABS: CALCIUM LEVEL 8.5 MG/DL (8.8-10.2); CREATININE FOR GFR 1.5 MG/DL (0.70-1.30); GLOMERULAR FILTRATION RATE 47.1 (>35); POTASSIUM SERUM 4.2 MEQ/L (3.5-5.1)
[2019-12-12 08:00] VITALS: BP 160/72
[2019-12-12] MEDS: PARoxetine 20 MG TAB PO SCH (09:56)
[2019-12-12] MEDS: LEVEMIR (INSULIN DETEMIR) 1 UNITS/0.01ML SC SCH (09:56)
[2019-12-12] MEDS: HumaLOG INSULIN (NovoLOG) PER UNIT SC SCH ×2 (09:56→12:49)
[2019-12-12] MEDS: **hydrALAZINE** 50 MG TAB PO SCH ×2 (09:57→21:41)
[2019-12-12] MEDS: METOPROLOL SUCC (TopROL XL) 50MG **XL** TAB PO SCH (09:58)
[2019-12-12] MEDS: DOCUSATE SODIUM 100 MG CAP PO SCH ×2 (09:58→21:39)
[2019-12-12] MEDS: CLOPIDOGREL 75 MG TAB PO SCH (09:58)
[2019-12-12] MEDS: NIFEdipine 30 MG XL TAB PO SCH (09:58)
[2019-12-12 12:00] VITALS: BP 168/66
[2019-12-12 12:48] LABS: AMORPHOUS SEDIMENT SMALL (NEGATIVE); APPEARANCE, URINE CLOUDY (CLEAR); BACTERIA, URINE AUTO NEGATIVE (NEGATIVE); BILIRUBIN, URINE AUTO NEGATIVE (NEGATIVE); BLOOD, URINE BLOOD 3+ (NEGATIVE); COLOR, URINE AMBER (YELLOW); GLUCOSE, URINE (UA) AUTO 1+ mg/dL (NEGATIVE); KETONE, URINE AUTO NEGATIVE (NEGATIVE); LEUKOCYTE ESTERASE, URINE AUTO NEGATIVE (NEGATIVE); MUCUS, URINE SMALL (NEGATIVE); NITRITE, URINE AUTO NEGATIVE (NEGATIVE); PROTEIN, URINE AUTO 3+ mg/dL (NEGATIVE); RBC, URINE AUTO TNTC /HPF (0-3); SQUAMOUS EPITHELIAL CELL UR AU 0 /HPF (0-6); WBC, URINE AUTO 6 /HPF (0-3)
[2019-12-12 16:00] VITALS: BP 172/78
[2019-12-12] MEDS ORDERED: traMADol 50 MG TAB PO PRN (16:15)
[2019-12-12] MEDS: ACETAMINOPHEN 500 MG TAB PO SCH ×2 (17:05→21:40)
--- NOTE | 2019-12-12 17:25 | IPNPDOC ---
Subjective Date Seen The patient was seen on 12/12/19. Subjective Chief Complaint/HPI Mr. Lester is a 89-year-old male with coronary artery disease status post CABG, TIA, dyslipidemia, diabetes mellitus, and hypertension who comes to the ED for intractable back pain, constipation for 5 days, and insomnia for 6 days. Last night he had a CT of abdomen and pelvis. Demonstrated an acute vertebral compression fracture at L2. No repulsed fragments. This morning, orthopedic surgery was consulted. Recommendations appreciated. Otherwise patient was able get some sleep overnight, and this morning, when I went to see him. When I woke him up, he denied any fever or chills, lightheadedness or dizziness, chest pain, dyspnea, or dysuria. Still constipated. He told me that his back pain is better. Then he went back to sleep. This afternoon, the daughter was present. Patient was restless. He was just sitting up, and then went to lie down. He denied any back pain, but daughter says he has been uncomfortable as he was switching positions. Constitutional: Denies: Chills, Fever Pulmonary: Denies: Dyspnea Cardiovascular: Denies: Chest Pain Gastrointestinal: Reports: Constipation Genitourinary: Denies: Dysuria Objective Physical Examination General Exam: Positive: Cooperative, Mild Distress Eye Exam: Positive: EOMI; Negative: Sclera icteric ENT Exam: Positive: Atraumatic Neck Exam: Positive: Supple Chest Exam: Positive: Clear to auscultation; Negative: Rales, Rhonchi, Wheezing Heart Exam: Positive: Rate Normal, Regular Rhythm Abdomen Exam: Positive: BS Hypoactive, Tenderness (tender in the right and left lower quadrants) Extremity Exam: Negative: Edema Neuro Exam: Positive: Normal Speech, Cranial Nerves 3-12 NL Psych Exam: Positive: Mental status NL, Mood NL Assessment /Plan Assessment Mr. Lester is a 89-year-old male with coronary artery disease status post CABG, TIA, dyslipidemia, diabetes mellitus, and hypertension who comes to the ED for intractable back pain, constipation for 5 days, and insomnia for [address] of the abdomen and pelvis demonstrated an acute L2 compression fracture with no repulse fragments. Orthopedics have been consulted, recommendations appreciated. Pain control with scheduled acetaminophen and when necessary tramadol. Still no bowel movement. We'll increase bowel regimen. Plan/VTE VTE Prophylaxis Ordered?: Yes Plan 1. Intractable back pain CT of the abdomen and pelvis demonstrated an L2 compression fracture with no repulsed fragments. Orthopedics has been consulted. Recommendations appreciated. Lidocaine patch, scheduled acetaminophen, tramadol as needed 2. Constipation Scheduled Colace and MiraLAX If no improvement will add on senna 3. Dementia/delirium/altered mental status Daughter says that patient's memory has been worsening May be secondary to constipation vs pain vs insomnia Treat underlying cause 4. Insomnia Continue Seroquel 5. Hypertension Continue metoprolol, nifedipine, hydralazine 6. Coronary artery disease status post stent and CABG Continue statin, dual antiplatelet therapy, beta meg Stable, no active chest pain 7. Diabetes mellitus We will continue at 6 units of Levemir I will hold sliding scale insulin as he has periods of hypoglycemia with the short-acting 8. DVT prophylaxis SCDs and teds VS, I&O, 24H, Fishbone Vital Signs/I&O Vital Signs Date Time Temp Pulse Resp B/P (MAP) Pulse Ox O2 Delivery O2 Flow Rate FiO2 12/12/19 16:00 98.9 63 18 172/78 (109) 95 Room Air I&O- Last 24 Hours up to 6 AM 12/12/19 06:00 Intake Total 240 ml Output Total 1000 ml Balance -760 ml Laboratory Data 24H LABS Laboratory Tests 2 12/11/19 22:14: Bedside Glucose (Misc Panel) 85 12/12/19 04:52: Nucleated Red Blood Cells % (auto) 0.0, Anion Gap 4L, Glomerular Filtration Rate 47.1, Calcium Level 8.5L 12/12/19 11:51: Bedside Glucose (Misc Panel) 141H 12/12/19 12:20: Urine Color GEORGETTE, Urine Appearance CLOUDYH, Urine pH 5.0, Urine Specific [place] 1.020, Urine Protein 3+H, Urine Glucose (Auto)(UA) 1+H, Urine Ketones (Auto) NEGATIVE, Urine Blood 3+H, Urine Nitrite NEGATIVE, Urine Bilirubin NEGATIVE, Urine Urobilinogen 2.0H, Urine Leukocyte Esterase (Auto) NEGATIVE, Urine WBC (Auto) 6H, Urine RBC (Auto) TNTCH, Urine Hyaline Casts (Auto) 0, Urine Bacteria (Auto) NEGATIVE, Urine Squamous Epithelial Cells 0, Urine Amorphous Sediment (Auto) SMALLH, Urine Mucus (Auto) SMALL, Urine Sperm (Auto) , Urine Random Total Protein 403.0H 12/12/19 17:00: Bedside Glucose (Misc Panel) 69L CBC/BMP Laboratory Tests 12/12/19 04:52 DAVID SALINAS DO Dec 12, 2019 17:25
[2019-12-12] MEDS: SIMVASTATIN 40 MG TAB PO SCH (18:34)
[2019-12-12] MEDS: MIRALAX *UNIT DOSE* 17GM PACKET PO SCH (18:35)
--- NOTE | 2019-12-12 19:00 | REPVR ---
PROCEDURE INFORMATION: Exam: US Retroperitoneal Limited, Kidneys Exam date and time: 12/12/2019 6:19 PM Age: 89 years old Clinical indication: Abnormal findings; Abnormal radiologic finding of the abdomen; Radiologic exam and body structure: CT kidneys; Additional info: CT abd/pelvis demonstrated possible hemorrhagic cysts TECHNIQUE: Imaging protocol: Real-time ultrasound of the retroperitoneum with image documentation. Examination was focused on the kidneys. COMPARISON: RENAL US 01/29/2017 4:06 PM FINDINGS: Right kidney: Right kidney measures 11.3 x 4.5 by 4.6 cm. Cyst with internal echoes and possibly a septation in the lower pole measuring 2.1 by 2 x 2.1 cm . Cyst in the upper pole right kidney with a few internal echoes measuring 1.5 x 1.3 x 1.4 cm. Simple Cyst in the upper pole right kidney the laterally measuring 1.1 x 0.7 x 1.2 cm with a few internal echoes. Exophytic complex cystic and solid lesion projecting off lower pole right kidney measuring 1.8 x 1.6 x 1.9 cm. No vascularity seen on color Doppler examination. Left kidney: Left kidney measures 10.8 x 4.9 by 4.4 cm. Cyst with a few internal echoes noted in the lower pole left kidney measuring 1.1 x 0.7 x 0.8 cm. Simple Cyst in the mid left kidney measuring 1.4 x 1.5 x 1.5 cm with good posterior wall enhancement and through transmission of sound. Simple Cyst in the upper pole left kidney measuring 1.1 x 0.9 x 1.3 cm with a few internal echoes. Both kidneys are increased in echotexture Bladder: Carr catheter present within the bladder. IMPRESSION: 1. Two complex cysts in the lower pole of the right kidney. An exophytic lesion projecting off the lower pole is suspicious for a renal neoplasm. Dedicated renal CT or MR recommended. 2. Simple or probably benign cysts in the left kidney. 3. Echogenic kidneys reflects underlying medical renal disease. Electronically signed by: Marilu Cintron On 12/12/2019 18:59:59 PM
[2019-12-12 20:00] VITALS: BP 163/77
[2019-12-12] MEDS: QUEtiapine FUMARATE 25 MG TAB PO SCH (21:39)
[2019-12-12] MEDS: PANTOPRAZOLE 40MG TAB (PROTONIX) PO SCH (21:39)
[2019-12-12] MEDS: ASPIRIN 81 MG ENTERIC TAB PO SCH (21:39)
[2019-12-13] VITALS (7 sets, daily range): BP systolic 139–194; BP diastolic 50–82
[2019-12-13 05:57] LABS: HEMATOCRIT 31.9 % (42.0-52.0); HEMOGLOBIN 9.9 g/dl (13.5-17.5); MEAN CORPUSCULAR HEMOGLOBIN 28.4 pg (27.0-33.0); MEAN CORPUSCULAR VOLUME 91.7 fl (80.0-96.0); PLATELET COUNT, AUTOMATED 211 10^3/uL (150-450); RED BLOOD COUNT 3.48 10^6/uL (4.30-6.10); WHITE BLOOD COUNT 6.3 10^3/uL (4.0-10.0)
[2019-12-13 06:19] LABS: CALCIUM LEVEL 8.8 MG/DL (8.8-10.2); CREATININE FOR GFR 1.34 MG/DL (0.70-1.30); GLOMERULAR FILTRATION RATE 53.7 (>35); POTASSIUM SERUM 4.1 MEQ/L (3.5-5.1)
[2019-12-13] MEDS: MIRALAX *UNIT DOSE* 17GM PACKET PO SCH (08:55)
[2019-12-13] MEDS: NIFEdipine 30 MG XL TAB PO SCH (08:56)
[2019-12-13] MEDS: LEVEMIR (INSULIN DETEMIR) 1 UNITS/0.01ML SC SCH (08:56)
[2019-12-13] MEDS: ACETAMINOPHEN 500 MG TAB PO SCH ×3 (08:57→20:52)
[2019-12-13] MEDS: DOCUSATE SODIUM 100 MG CAP PO SCH ×2 (08:57→20:52)
[2019-12-13] MEDS: METOPROLOL SUCC (TopROL XL) 50MG **XL** TAB PO SCH (08:57)
[2019-12-13] MEDS: PARoxetine 20 MG TAB PO SCH (08:58)
[2019-12-13] MEDS: CLOPIDOGREL 75 MG TAB PO SCH (08:58)
[2019-12-13] MEDS: **hydrALAZINE** 50 MG TAB PO SCH ×2 (08:58→20:53)
[2019-12-13] MEDS: SENNA 8.6 MG TAB (SENOKOT) PO SCH (09:00)
[2019-12-13] MEDS: hydrALAZINE 20MG/ML 1ML VIAL (J0360 PER 20MG) IV PRN (11:49)
[2019-12-13] MEDS ORDERED: SLF 3 ML SYR IV PRN (12:45)
[2019-12-13] MEDS: SLF 3 ML SYR IV SCH ×2 (13:02→22:00)
[2019-12-13] MEDS: SIMVASTATIN 40 MG TAB PO SCH (16:56)
--- NOTE | 2019-12-13 17:00 | IPNPDOC ---
Subjective Date Seen The patient was seen on 12/13/19. Subjective Chief Complaint/HPI Mr. Lester is a 89-year-old male with prostate cancer s/p resection, coronary artery disease status post CABG, TIA, dyslipidemia, diabetes mellitus, and hypertension who comes to the ED for intractable back pain, constipation for 5 days, and insomnia for 6 days. Spoke with Heme/Onc due to possible neoplasm of right kidney seen on US kidney. Concern that compression fracture may be related to cancer. Otherwise, he was sleeping this morning and most of the afternoon. When I woke him up, he denies any fever/chill, chest pain, dyspnea, or dysuria. Still constipated. Constitutional: Denies: Chills, Fever Pulmonary: Denies: Dyspnea Cardiovascular: Denies: Chest Pain Gastrointestinal: Reports: Constipation Genitourinary: Denies: Dysuria Musculoskeletal: Reports: Back Pain Objective Physical Examination General Exam: Positive: Cooperative Eye Exam: Positive: EOMI; Negative: Sclera icteric ENT Exam: Positive: Atraumatic Neck Exam: Positive: Supple Chest Exam: Positive: Clear to auscultation; Negative: Rales, Rhonchi, Wheezing Heart Exam: Positive: Rate Normal, Regular Rhythm Abdomen Exam: Positive: BS Hypoactive, Tenderness (tender in the right and left lower quadrants) Extremity Exam: Negative: Edema Neuro Exam: Positive: Normal Speech, Cranial Nerves 3-12 NL Psych Exam: Positive: Mental status NL, Mood NL Assessment /Plan Assessment Mr. Lester is a 89-year-old male with coronary artery disease status post CA BG, TIA, dyslipidemia, diabetes mellitus, and hypertension who comes to the ED for intractable back pain, constipation for 5 days, and insomnia for 6 days. Fell a week ago, but was sent home because no fracture. During this admission, he had a CT of the abdomen and pelvis demonstrated an acute L2 compression fracture with no repulse fragments. Orthopedics have been consulted, recommendations appreciated. Pain control with scheduled acetaminophen and when necessary tramadol. Orthopedics recommended no heavy lifting and no bending over. They will see patient outpatient. Will order PT to work with patient Still no bowel movement. We'll increase bowel regimen to include senna. CT abd/pelvis recommended US Kidney. US Kidney demonstrates an exophytic lesion suspicious for renal neoplasm. Spoke with Heme/Onc. The compression fracture may be related to neoplasm. Recommended MRI of Lumbar spine, PSA (history of prostate cancer s/p resection), and Bone scan. Bone scan scheduled for tomorrow. Heme/Onc to see patient. Recommendations appreciated. Plan/VTE VTE Prophylaxis Ordered?: Yes Plan 1. Intractable back pain CT of the abdomen and pelvis demonstrated an L2 compression fracture with no repulsed fragments. Orthopedics has been consulted. Recommendations appreciated. Lidocaine patch, scheduled acetaminophen, tramadol as needed -US kidney demonstrated lesion in right kidney suspicious for neoplasm. Reached out to Heme/Onc, recommendations appreciated 2. Constipation Scheduled Colace and Miralax -Added scheduled Senna today -May need an enema or milk of mag if no BM. 3. Dementia/delirium/altered mental status Daughter says that patient's memory has been worsening May be secondary to constipation vs pain vs insomnia Treat underlying cause 4. Insomnia Continue Seroquel 5. Hypertension Continue metoprolol, nifedipine, hydralazine 6. Coronary artery disease status post stent and CABG Continue statin, dual antiplatelet therapy, beta meg Stable, no active chest pain 7. Diabetes mellitus We will continue at 6 units of Levemir I will hold sliding scale insulin as he has periods of hypoglycemia with the short-acting 8. DVT prophylaxis SCDs and teds VS, I&O, 24H, Fishbone Vital Signs/I&O Vital Signs Date Time Temp Pulse Resp B/P (MAP) Pulse Ox O2 Delivery O2 Flow Rate FiO2 12/13/19 12:59 175/72 (106) 12/13/19 11:44 97.6 65 18 97 Room Air I&O- Last 24 Hours up to 6 AM 12/13/19 06:00 Intake Total 320 ml Output Total 800 ml Balance -480 ml Laboratory Data 24H LABS Laboratory Tests 2 12/12/19 17:00: Bedside Glucose (Misc Panel) 69L 12/12/19 20:27: Bedside Glucose (Misc Panel) 127H 12/13/19 04:28: Bedside Glucose (Misc Panel) 132H 12/13/19 05:39: Nucleated Red Blood Cells % (auto) 0.0, Anion Gap 5L, Glomerular Filtration Rate 53.7, Calcium Level 8.8 12/13/19 11:22: Bedside Glucose (Misc Panel) 120H 12/13/19 12:09: CBC/BMP Laboratory Tests 12/13/19 05:39 DAVID SALINAS DO Dec 13, 2019 17:00
--- NOTE | 2019-12-13 19:11 | CR.PDOC ---
General Date of Consultation: Dec 13, 2019 Referring Provider: DAVID SALINAS DO Consultation REASON FOR CONSULTATION/CHIEF COMPLAINT: . History of prostate carcinoma. 2 complex cysts in the lower pole of the right kidney. An exophytic lesion projecting off the lower pole of the right kidney suspicious for renal neoplasm HISTORY OF PRESENT ILLNESS: . I had the pleasure of seeing Mr. Nikos Gonzalez in consideration for history of prostate cancer and exophytic lesion of the lower pole of right kidney. As you know Mr. Gonzalez is an 89-year-old white gentleman who has multiple comorbidities including coronary artery disease, TIA diabetes mellitus, hypertension and also prostate carcinoma. He was admitted to emergency room because he fell down and developed low back pain. Initially he was discharged home but later on he came back because pain was not getting better. He also developed constipation for 5 days prior to coming to emergency room. He was found to have L2 compression fracture and is being treated symptomatically. Abdominal ultrasound on 12/12/2019 revealed multiple right renal cyst is an exophytic complex cystic and solid lesion projecting off lower pole right kidney measuring 1.8 x 1.6 x 1.9 cm suspected to be renal neoplasm. Currently if he is comfortable and is denying any pain anywhere in the body. Likely under the effect of pain medicines. He does not have any low back pain at this point. His breathing is good. He denies cough or phlegm or wheezing. Does not have chest pain or palpitation no headache or dizziness and has no burning urination. ALLERGIES: Please see below. . PAST MEDICAL HISTORY: 1. History of prostate carcinoma diagnosed about 10 years ago and had surgery at [facility].. 2. Coronary artery disease status post CABG 3. Multiple vascular surgeries. PAST SURGICAL HISTORY: 1. Prostatectomy 2. Cholecystectomy FAMILY HISTORY: Siblings: Brother had history of coronary artery disease and hypertension Children: Son has coronary artery disease diabetes and hypertension SOCIAL HISTORY: Denies tobacco or alcohol abuse. REVIEW OF SYSTEMS: CONSTITUTIONAL: Baby living pleasant gentleman with dementia. He is not in acute distress.. HEENT: Hard of hearing. CARDIOVASCULAR: No chest pain, atrial fibrillation. RESPIRATORY: Breathing is stable. GENITOURINARY: . MUSCULOSKELETAL: Currently in no pain. GASTROINTESTINAL: Constipation for last 5 days. SKIN: Skin is normal. NEUROLOGICAL: Dementia and generalized weakness. History of fall. PSYCHIATRIC: Mild anxiety. PHYSICAL EXAMINATION: VITAL SIGNS: Please see below. GENERAL APPEARANCE: . Pale looking gentleman in no acute distress lying comfortably in bed. HEENT: Hard of hearing. RESPIRATORY: Lungs clear to auscultation. CARDIOVASCULAR: Ejection systolic murmur at the aortic area. ABDOMEN: Soft nondistended. EXTREMITIES: No edema. NEUROLOGICAL: Dementia but moving all 4 limbs. PSYCHIATRIC: Dementia but not in acute distress. LABORATORY DATA: Please see below. ASSESSMENT/PLAN: 1. History of prostate carcinoma. Mr. Gonzalez has a history of prostate carcinoma and has prostatectomy in 10 years ago. He has been followed at [facility] off-and-on. Although we therefore he might have fracture of the second lumbar vertebra because of osteoporosis yet we need to rule out metastatic prostate carcinoma. For that I suggest to repeat a PSA, bone scan and MRI of the lumbar spine. 2. Patient CT of the abdomen and ultrasound is revealing an exophytic growth from the lower pole of the right kidney measuring 1.8 x 1.6 x 1.9 cm. Suspicious for a renal neoplasm. This neoplasm can't be watched closely since at this point there is no cord for any surgery as his lesion is too small and can easily be watched closely until his condition improves. If she regains his strength and of at that time consideration may be given for partial nephrectomy or a core biopsy of the lesion. I would suggest to wait until you get the results of bone scan and MRI and PSA level back and then we will proceed accordingly. Vital Signs/I&O Vital Signs Date Time Temp Pulse Resp B/P (MAP) Pulse Ox O2 Delivery O2 Flow Rate FiO2 12/13/19 16:00 98.3 71 16 139/64 (89) 94 Room Air I&O- Last 24 Hours up to 6 AM 12/13/19 06:00 Intake Total 320 ml Output Total 800 ml Balance -480 ml Laboratory Data Labs 24H Laboratory Tests 2 12/12/19 20:27: Bedside Glucose (Misc Panel) 127H 12/13/19 04:28: Bedside Glucose (Misc Panel) 132H 12/13/19 05:39: Nucleated Red Blood Cells % (auto) 0.0, Anion Gap 5L, Glomerular Filtration Rate 53.7, Calcium Level 8.8 12/13/19 11:22: Bedside Glucose (Misc Panel) 120H 12/13/19 12:09: 12/13/19 17:45: Bedside Glucose (Misc Panel) 73L CBC/BMP Laboratory Tests 12/13/19 05:39 Allergies Coded Allergies: No Known Allergies (Verified , 07/29/07) Home Medications Scheduled Aspirin (Aspirin EC) 81 Mg Tablet.dr, 81 MG PO QHS, (Reported) Clopidogrel Bisulfate (Plavix) 75 Mg Tab, 75 MG PO DAILY, (Reported) Ergocalciferol (Vitamin D2) (Drisdol) 1,250 Mcg Capsule, 1,250 MCG PO 1XWK, (R eported) FRI. QPM Hydralazine HCl (Hydralazine HCl) 100 Mg Tablet, 100 MG PO BID, (Reported) Insulin Detemir (Levemir) 100 Unit/1 Ml Vial, 12 UNITS SC DAILY, (Reported) Melatonin (Melatonin) 3 Mg Tablet, 3 MG PO QHS, (Reported) Metoprolol Succinate (Metoprolol Succinate) 50 Mg Tab, 50 MG PO DAILY, (Reported) Nifedipine (Nifedipine ER) 60 Mg Tab.er.24, 60 MG PO DAILY, (Reported) Paroxetine HCl (Paroxetine) 20 Mg Tablet, 20 MG PO DAILY for 30 Days, #30 (Reported) Simvastatin (Simvastatin) 40 Mg Tab, 40 MG PO QPM, (Reported) DINNERTIME Vit C/E/Zn/Coppr/Lutein/Zeaxan (Preservision Areds 2 Softgel) 1 Each Capsule, 1 EACH PO BID, (Reported) STEFANI WINCHESTER MD Dec 13, 2019 19:11
--- NOTE | 2019-12-13 20:21 | REPVR ---
PROCEDURE INFORMATION: Exam: MR Lumbar Spine Without Contrast. Exam date and time: 12/13/2019 7:21 PM Age: 89 years old Clinical indication: Other: Compression fracture of l2; Additional info: Compression fracture of l2, kidney lesion malignancy? TECHNIQUE: Imaging protocol: Multiplanar magnetic resonance images of the lumbar spine without intravenous contrast. COMPARISON: No relevant prior studies available. FINDINGS: Vertebrae: There is a compression deformity at L2 with approximately 20% loss of vertebral height. Marrow edema is demonstrated most pronounced on the T1 and STIR weighted images. There is no retropulsion of the posterior margin of the L2 vertebral body into the spinal canal. Mild retrolisthesis of L4 on L5. Small hemangioma right side of L5. Spinal cord: Normal signal. No cord compression. L1-L2: Mild annular bulge and thickened ligaments at L1-L2 without spinal stenosis. Mild foraminal narrowing on the right and moderate proximal foraminal narrowing on the left. No lateral recess stenosis. L2-L3: There is a mild central spinal stenosis at L2-L3 secondary to diffuse annular bulging, thickened ligamentum flavum with facet joint arthropathy. Mild bilateral foraminal narrowing the proximal neural foramina. No lateral recess stenosis. L3-L4: Moderate disc space narrowing at L3-L4. There is a moderate to severe central spinal stenosis at L3-L4 secondary to diffuse annular bulging, thickened ligamentum flavum with marked facet joint arthropathy. Severe foraminal narrowing on the right and moderate foraminal narrowing on the left. No lateral recess stenosis. L4-L5: There is a moderate central spinal stenosis at L4-L5 secondary to diffuse annular bulging, thickened ligamentum flavum with moderate facet joint arthropathy. Severe foraminal narrowing on the right and mild to moderate foraminal narrowing on the left. No significant lateral recess stenosis. L5-S1: Diffusely bulging annulus at L5-S1 with a small central disc protrusion effacing the ventral subarachnoid space. Hypertrophied ligaments and facet joints which in combination with the bulging annulus is resulting in moderate to severe proximal neural foraminal narrowing and possible impingement on the exiting right S1 nerve root. Soft tissues: Unremarkable. IMPRESSION: 1. Findings consistent with an acute to subacute compression fracture at L2. No obvious mass demonstrated favoring an osteoporotic compression fracture although occult neoplasm not absolutely excluded. 2. Mild central spinal stenosis at L2-L3, moderate to severe central spinal stenosis at L3-L4, and moderate central spinal stenosis at L4-L5. 3. Bulging annulus L5-S1 with small central disc protrusion and possible impingement on the exiting right S1 nerve root. Electronically signed by: Brian Dexter On 12/13/2019 20:21:11 PM
[2019-12-13] MEDS: QUEtiapine FUMARATE 25 MG TAB PO SCH (20:52)
[2019-12-13] MEDS: PANTOPRAZOLE 40MG TAB (PROTONIX) PO SCH (20:52)
[2019-12-13] MEDS: ASPIRIN 81 MG ENTERIC TAB PO SCH (20:52)
[2019-12-14] VITALS (8 sets, daily range): BP systolic 142–188; BP diastolic 54–78
[2019-12-14] MEDS: hydrALAZINE 20MG/ML 1ML VIAL (J0360 PER 20MG) IV PRN (04:17)
[2019-12-14 04:23] LABS: HEMOGLOBIN 10.6 g/dl (13.5-17.5); MEAN CORPUSCULAR HEMOGLOBIN 28.3 pg (27.0-33.0); MEAN CORPUSCULAR HGB CONC 31.2 g/dl (32.0-36.5); MEAN CORPUSCULAR VOLUME 90.9 fl (80.0-96.0); PLATELET COUNT, AUTOMATED 243 10^3/uL (150-450); RED BLOOD COUNT 3.74 10^6/uL (4.30-6.10); WHITE BLOOD COUNT 7.3 10^3/uL (4.0-10.0)
[2019-12-14 05:01] LABS: CALCIUM LEVEL 8.9 MG/DL (8.8-10.2); CREATININE FOR GFR 1.39 MG/DL (0.70-1.30); GLOMERULAR FILTRATION RATE 51.5 (>35); POTASSIUM SERUM 4.2 MEQ/L (3.5-5.1)
[2019-12-14] MEDS: SLF 3 ML SYR IV SCH ×3 (05:52→21:58)
[2019-12-14] MEDS: **hydrALAZINE** 50 MG TAB PO SCH ×3 (07:53→21:58)
--- NOTE | 2019-12-14 08:57 | IPNPDOC ---
Date Seen The patient was seen on 12/14/19. Progress Note SUBJECTIVE: Patient has been seen and examined at the bedside. His chart has been reviewed. He complains of 2 out of 10 pain in the lumbar area and Complains of generalized weakness, and has not been out of bed today yet. He denies any hematuria, flank pain, fever, chills, dysuria, urgency, frequency, difficulty starting or maintaining a urine. Telemetry was unremarkable OBJECTIVE PHYSICAL EXAMINATION: VITAL SIGNS: Please see below. GENERAL: Asleep but easily arousable, awake and alert to himself, able to speak in full sentences. No respiratory distress HEENT: No pallor, icterus, jaundice, no JVD, thyromegaly or cervical lymphadenopathy CARDIOVASCULAR: S1, S2 regular rate rhythm, no murmurs, rubs or gallops RESPIRATORY: Clear to auscultation bilaterally, air entry is equal. No kyphosis or scoliosis. No wheezing, rales or rhonchi ABDOMINAL: Positive bowel sounds, soft, nontender, nondistended. No hepatosplenomegaly. No abdominal bruits. , No CVA tenderness EXTREMITIES no cyanosis, clubbing or pitting edema. Gait was not tested. Order function. 5 out of 54 extremities LABORATORY DATA, IMAGING STUDIES, MICROBIOLOGY: Please see below. MRI of the lumbar spine 12/13/19 IMPRESSION: 1. Findings consistent with an acute to subacute compression fracture at L2. No obvious mass demonstrated favoring an osteoporotic compression fracture although occult neoplasm not absolutely excluded. 2. Mild central spinal stenosis at L2-L3, moderate to severe central spinal stenosis at L3-L4, and moderate central spinal stenosis at L4-L5. 3. Bulging annulus L5-S1 with small central disc protrusion and possible impingement on the exiting right S1 nerve root. Electronically signed by: Brina Dexter On 12/13/2019 20:21:11 PM HOSPITAL MEDICATIONS: hydralazine, senna, Ultram, Plavix, Levemir insulin, Toprol, Paxil, nifedipine MiraLAX hypoglycemic protocol, Protonix, Colace, aspi rin, Seroquel, simvastatin ASSESSMENT AND PLAN: 89-year-old male with history of transient ischemic attack, hypertension, diabetes, dyslipidemia, coronary artery disease, status post coronary artery bypass graft, admitted through the emergency room with complaints of constipation and insomnia. Intractable back pain and a fall one week prior to presentation. Evaluation included CT abdomen and pelvis which showed an acute L2 compression fracture, central canal stenosis at L2-L5 with bulging annulus at L5-S1 with a small central disc protrusion and possible impingement on the exiting right S1 nerve orthopedic surgery has been consulted for activity and further recommendations. Patient was found to have renal cyst, rule out kidney neoplasm with plans for MRI with and without contrast despite creatinine of 1.3. GFR remains at 51 and adequate for a contrast study. Medical oncologist, Dr. WINCHESTER recommended optimization of patient's functional capacity before proceeding with any invasive intervention in case. MRI of the abdomen shows renal neoplasm. 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 Orthopedic surgery has provided recommendations for activity level. No surgical intervention at this time. He is not exhibiting any acute neurological weakness. Acute rehabilitation unit has been consulted to optimize his physical conditioning and improve his stability. Patient denies any dysuria, hematuria, flank pain, or significant weight loss, but we will proceed with MRI with out followed with with contrast to further evaluate the right exophytic lesion in the lower pole of the kidney to rule out renal carcinoma. Patient is currently with poor functional status to undergo invasive nephrectomy. We will also await the bone scan result prior to proceeding with urology consultation. Patient is continued on his home medications and since his pain is uncontrolled. We have found that his blood pressure has been elevated for the past 24 hours. His hydralazine has been increased. His beta meg has remained at the current dose due to episodes of low heart rate and cannot be titrated higher. Once the blood pressure is less than 150. Patient is medically stable off the IV hydralazine, and may be transferred to a medical surgical floor on oral hydralazine. We will await further recommendations from the medical oncologist, but will continue with activity as tolerated with fall percussions to improve his motor strength. VS, I&O, 24H, Fishbone Vital Signs/I&O Vital Signs Date Time Temp Pulse Resp B/P (MAP) Pulse Ox O2 Delivery O2 Flow Rate FiO2 12/14/19 08:00 97.8 68 16 148/71 (96) 96 Room Air I&O- Last 24 Hours up to 6 AM 12/14/19 06:00 Intake Total 360 ml Output Total 1100 ml Balance -740 ml Laboratory Data 24H LABS Laboratory Tests 2 12/13/19 11:22: Bedside Glucose (Misc Panel) 120H 12/13/19 12:09: 12/13/19 17:45: Bedside Glucose (Misc Panel) 73L 12/13/19 20:19: Bedside Glucose (Misc Panel) 220H 12/14/19 04:10: Nucleated Red Blood Cells % (auto) 0.0, Anion Gap 6L, Glomerular Filtration Rate 51.5, Calcium Level 8.9 CBC/BMP Laboratory Tests 12/14/19 04:10 TASHA NEVES MD Dec 14, 2019 08:57
[2019-12-14] MEDS: PARoxetine 20 MG TAB PO SCH (09:58)
[2019-12-14] MEDS: MIRALAX *UNIT DOSE* 17GM PACKET PO SCH (09:58)
[2019-12-14] MEDS: NIFEdipine 30 MG XL TAB PO SCH (09:59)
[2019-12-14] MEDS: DOCUSATE SODIUM 100 MG CAP PO SCH ×2 (10:00→21:56)
[2019-12-14] MEDS: ACETAMINOPHEN 500 MG TAB PO SCH ×3 (10:00→21:00)
[2019-12-14] MEDS: SENNA 8.6 MG TAB (SENOKOT) PO SCH (10:01)
[2019-12-14] MEDS: CLOPIDOGREL 75 MG TAB PO SCH (10:01)
[2019-12-14] MEDS: METOPROLOL SUCC (TopROL XL) 50MG **XL** TAB PO SCH (10:01)
[2019-12-14] MEDS: LEVEMIR (INSULIN DETEMIR) 1 UNITS/0.01ML SC SCH (10:02)
--- NOTE | 2019-12-14 10:42 | CR ---
DATE OF CONSULTATION: 12/13/2019 CHIEF COMPLAINT: Back pain. HISTORY OF PRESENT ILLNESS: Mr. Lester was admitted yesterday with back pain. It was discovered on CT of the abdomen and pelvis that he had an L2 anterior wedge compression fracture. Orthopaedics was consulted. Patient denied any numbness, tingling. No red flag issues. Health survey was reviewed and amended in the chart. Pertinent positives and negatives were noted. PHYSICAL EXAMINATION: Revealed a well-developed, well-nourished, in no acute distress, alert male. Inspection of the back revealed intact skin, patient denied tenderness. He displayed intact sensation to light touch throughout both lower extremities. He had 5/5 strength. There was no clonus observed. IMAGING: I did review a CT scan showing L2 anterior wedge compression fracture mainly involving the left side with minimal loss of anterior height. Some significant degenerative disc disease was appreciated at L4-5 as well. IMPRESSION: Subacute L2 wedge compression fracture without retropulsion. PLAN: Plan will be for Amrit to followup in our office upon discharge for routine followup of his L2 anterior wedge compression fracture. He is weightbearing as tolerated with his walker. Please refer to the medical record for further details. MTDD
[2019-12-14] MEDS: SIMVASTATIN 40 MG TAB PO SCH (17:02)
[2019-12-14] MEDS ORDERED: PROHANCE 279.3MG/ML 5ML VIAL As Ordered ONE (17:53)
--- NOTE | 2019-12-14 20:06 | REPVR ---
PROCEDURE INFORMATION: Exam: MR Abdomen Without and With Contrast Exam date and time: 12/14/2019 6:45 PM Age: 89 years old Clinical indication: Abnormal findings; Abnormal radiologic finding of the abdomen; Radiologic exam and body structure: US, CT, kidney; Patient HX: PT has a HX of prostate cancer, recent FX of the lumbar spine and pain. Best images possible, pt was unable to remain still and could not finish the exam. Additional info: Renal neoplasm? TECHNIQUE: Imaging protocol: MR of the abdomen without and with intravenous contrast. Contrast material: PROHANCE; Contrast volume: 5 ml; Contrast route: INTRAVENOUS (IV); COMPARISON: 1. CT ABD/PEL W/PO CONTRAST ONLY 12/11/2019 7:46 PM 2. RENAL US 12/12/2019 6:04:[address] ABD PELVIS WITH CONTRAST 03/26/2016 2:53:20 AM 4. RENAL US 01/29/2017 4:06:14 PM 5. MRI-Spine, L.S. without con 12/13/2019 7:17:24 PM FINDINGS: Limitations: Motion artifact severely degrades the image quality of multiple sequences obtained. Liver: There is a 5 mm cyst in the posterosuperior segment 7 of the right hepatic lobe, for which follow-up is not necessary. The liver was not fully imaged. Gallbladder and bile ducts: There has been a cholecystectomy. There is no fluid collection in the gallbladder fossa. No dilation of the bile ducts is noted. There is no choledocholithiasis. The common bile duct measures 5 mm in diameter. Pancreas: The pancreas is atrophic and the main pancreatic duct is dilated and measures 5 mm in diameter. There are several cystic lesions in the body and tail of the pancreas measuring up to 10 mm, which appear to communicate with the main pancreatic duct. No solid enhancing components are noted within the cystic lesions. These lesions are not visualized in the CT abdomen and pelvis with contrast on 03/26/2016. Spleen: Normal. No splenomegaly. Adrenals: Normal. No mass. Kidneys and ureters: There is a 1.7 cm complicated exophytic cystic lesion arising from the inferior pole of the right kidney, which has mild internal T2 heterogeneity, but is unchanged in size compared to the prior CT abdomen and pelvis with contrast on 03/26/2016. The postcontrast sequences are severely degraded by motion artifact, limiting the evaluation of this lesion. There are other multiple benign-appearing cysts in both kidneys, the largest in the lower pole of the right kidney measuring 2.7 cm. There are several subcentimeter hyperdense cysts in the right kidney and several benign-appearing left renal sinus cysts. No hydronephrosis. There is nonspecific chronic bilateral perinephric stranding that was also present in the prior CT abdomen and pelvis on 03/26/2016. Stomach and bowel: The imaged loops of small and large bowel are unremarkable. The bowel was not fully imaged. Appendix: No evidence for appendicitis. Retroperitoneal space: No fluid collection. Intraperitoneal space: No free fluid. Arteries: No abdominal aortic aneurysm. Lymph nodes: Normal. No enlarged lymph nodes. Bones/joints: There is an acute mild to moderate anterior wedge compression fracture of L2, which is better visualized in the MRI lumbar spine on 12/13/2019. Soft tissues: Unremarkable. IMPRESSION: 1. 1.7 cm complicated exophytic cystic lesion arising from the inferior pole of the right kidney which is poorly evaluated in this study secondary to extensive motion artifact in the postcontrast sequences. However, this lesion is unchanged in size compared to the prior CT abdomen and pelvis with contrast on 03/26/2016. Further characterization could be performed with a dedicated renal protocol CT abdomen without and with intravenous contrast. 2. 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 The decision to pursue imaging follow-up and/or EUS/FNA should be anchored to the patient's overall health and preferences; such work-up is only advised if the patient is a surgical candidate. Reimaging every 2 years for 4 years could be performed. (Reference: Denzel, 2017) 3. Acute mild to moderate anterior wedge compression fracture of L2, which is better visualized in the MRI lumbar spine on 12/13/2019. COMMENTS: Consistent with the [employer]'s Incidental Findings Committee white paper (J Am Emiliana Radiol 2018): Any incidental renal lesion less than 1 cm or classified as too small to characterize, or any incidental cystic renal lesion characterized as simple-appearing, is likely benign. No follow-up imaging is recommended for these lesions per consensus recommendations based on imaging criteria. REFERENCES: Denzel COPE, et al. Management of Incidental Pancreatic Cysts: A White Paper of the ACR Incidental Findings Committee. J Am Emiliana Radiol. 2017;14(7):911-923. Electronically signed by: Wero Nunez On 12/14/2019 20:05:42 PM
[2019-12-14] MEDS: ASPIRIN 81 MG ENTERIC TAB PO SCH (21:56)
[2019-12-14] MEDS: PANTOPRAZOLE 40MG TAB (PROTONIX) PO SCH (21:56)
[2019-12-14] MEDS: QUEtiapine FUMARATE 25 MG TAB PO SCH (21:56)
[2019-12-14 23:06] LABS: PSA TOTAL <0.1 ng/mL (0.0-4.0)
[2019-12-15] VITALS (8 sets, daily range): BP systolic 102–197; BP diastolic 50–73
[2019-12-15 00:29] LABS: INR 0.98; PROTHROMBIN TIME 13.2 SECONDS (12.5-14.3)
[2019-12-15] MEDS: SLF 3 ML SYR IV SCH ×3 (05:56→21:21)
[2019-12-15 06:38] LABS: HEMATOCRIT 31.7 % (42.0-52.0); HEMOGLOBIN 10.1 g/dl (13.5-17.5); MEAN CORPUSCULAR HEMOGLOBIN 28.7 pg (27.0-33.0); MEAN CORPUSCULAR HGB CONC 31.9 g/dl (32.0-36.5); MEAN CORPUSCULAR VOLUME 90.1 fl (80.0-96.0); PLATELET COUNT, AUTOMATED 288 10^3/uL (150-450); RED BLOOD COUNT 3.52 10^6/uL (4.30-6.10); WHITE BLOOD COUNT 7.9 10^3/uL (4.0-10.0)
[2019-12-15 07:01] LABS: CALCIUM LEVEL 8.6 MG/DL (8.8-10.2); CREATININE FOR GFR 1.4 MG/DL (0.70-1.30)
--- NOTE | 2019-12-15 07:51 | REP ---
WHOLE BODY RADIONUCLIDE BONE SCAN HISTORY: L2 compression fracture. Possible renal neoplasm. TECHNIQUE: 22.0 mCi of Technetium-99m MDP is injected and standard whole body bone scan imaging is acquired. COMPARISON CT STUDY: 12/11/2019. SCINTIGRAPHIC FINDINGS: There is uptake in bilateral kidneys and in the urinary bladder. Mild degenerative uptake is seen in the medial compartment of each knee. There is a horizontal pattern of increased uptake in the L2 vertebral body corresponding to the compression fracture deformity seen on CT study 12/11/2019. This is consistent with healing fracture. There is mild degenerative uptake in the mid thoracic spine. There is no evidence to suggest skeletal metastatic disease. Mild degenerative uptake is seen in the lower cervical spine. IMPRESSION: Degenerative and osteoarthritic pattern of increased uptake in the cervical and thoracic spine. Increased uptake in the L2 vertebral body consistent with recent compression fracture deformity. Otherwise negative. MTDD
[2019-12-15] MEDS: MIRALAX *UNIT DOSE* 17GM PACKET PO SCH ×3 (09:00→21:13)
--- NOTE | 2019-12-15 09:39 | IPNPDOC ---
Date Seen The patient was seen on 12/15/19. Progress Note SUBJECTIVE: Patient denies any pain this morning and says that when he tries to move its 2 out of 10, but when he is resting. He has no back pain. Carr catheter is still in place with nursing noting some crusting around the catheter site as well as dried blood. Carr catheter will be discontinued today. Patient denies any fever or chills. No gross hematuria noted on the Carr catheter. MRI of the kidney was inconclusive. Unable to assess for carcinoma, with questionable findings of the pancreatic duct and biliary system concerning for carcinoma. . No fever or chills OBJECTIVE PHYSICAL EXAMINATION: VITAL SIGNS: Please see below. GENERAL: Asleep but easily arousable, awake and alert to himself, able to speak in full sentences. No respiratory distress HEENT: No pallor, icterus, jaundice, no JVD, thyromegaly or cervical lymphadenopathy CARDIOVASCULAR: S1, S2 regular rate rhythm, no murmurs, rubs or gallops RESPIRATORY: Clear to auscultation bilaterally, air entry is equal. No kyphosis or scoliosis. No wheezing, rales or rhonchi ABDOMINAL: Positive bowel sounds, soft, nontender, nondistended. No hepatosplenomegaly. No abdominal bruits. , No CVA tenderness. Carr catheter with slightly yellow urine without hematu. EXTREMITIES no cyanosis, clubbing or pitting edema. Gait was not tested. Order function. 5 out of 54 extremities LABORATORY DATA, IMAGING STUDIES, MICROBIOLOGY: Please see below. MRI of the lumbar spine 12/13/19 IMPRESSION: 1. Findings consistent with an acute to subacute compression fracture at L2. No obvious mass demonstrated favoring an osteoporotic compression fracture although occult neoplasm not absolutely excluded. 2. Mild central spinal stenosis at L2-L3, moderate to severe central spinal stenosis at L3-L4, and moderate central spinal stenosis at L4-L5. 3. Bulging annulus L5-S1 with small central disc protrusion and possible impingement on the exiting right S1 nerve root. Electronically signed by: Brian Dexter On 12/13/2019 20:21:11 PM MRI abdomen without and with contrast 12/14/2019 1.7 cm complicated exophytic lesion arising from the inferior pole of the right kidney poorly evaluated due to extensive motion artifact. 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 If the patient is not a surgical candidate reimaging every 2 years or 4 years could be performed. Decision to pursue EUS and fine-needle aspiration should be anchored to patient's overall health and preference HOSPITAL MEDICATIONS: hydralazine, senna, Ultram, Plavix, Levemir insulin, Toprol, Paxil, nifedipine MiraLAX hypoglycemic protocol, Protonix, Colace, aspirin, Seroquel, simvastatin ASSESSMENT AND PLAN: 89-year-old male with history of transient ischemic attack, hypertension, diabetes, dyslipidemia, coronary artery disease, status post coronary artery bypass graft, admitted through the emergency room with complaints of constipation and insomnia. Intractable back pain and a fall one week prior to presentation. Evaluation included CT abdomen and pelvis which showed an acute L2 compression fracture, central canal stenosis at L2-L5 with bulging annulus at L5-S1 with a small central disc protrusion and possible impingement on the exiting right S1 nerve orthopedic surgery has been consulted for activity and further recommendations. Patient was found to have renal cyst, rule out kidney neoplasm with plans for MRI with and without contrast despite creatinine of 1.3. GFR remains at 51 and adequate for a contrast study. Medical oncologist, Dr. WINCHESTER recommended optimization of patient's functional capacity before proceeding with any invasive intervention in case. MRI of the abdomen shows renal neoplasm. PROBLEMS: Mechanical fall at home L2-L5 spinal stenosis, moderate spinal stenosis at L4-L5 Right S1 nerve root impingement due to bulging annulus at L5-S1 with small central disc protrusion Acute to subacute compression fracture at L2 favoring osteoporotic compression fracture Right exophytic lesion of the lower pole of the kidney rule out renal neoplasm History of prostate carcinoma 10 years ago, status post prostatectomy Diabetes Hypertension Insomnia Constipation Chronic Dementia/acute delirium, resolving Intractable back pain secondary to spinal stenosis and mechanical fall Debility/ physical deconditioning Plan: Patient's MRI of the abdomen is still inconclusive regarding the 1.7 cm complicated right kidney exophytic lesion. Findings of dilation of the main pancreatic duct with possible lab mucinous neoplasm was an incidental finding. Patient has had no complaints of nausea, vomiting or abdominal pain. No significant weight loss as outpatient. He is currently on pain medications for his L2 compression fracture with activity as tolerated with a walker per orthopedic surgery ER. [facility] has examined the patient's case and he may be a continued good candidate for acute rehabilitation unit. The patient's daughter who is a primary caregiver is unable to provide 24, 7 care at this time as she will be leaving for [facility] to take care of her friend who is in hospice care and will not return until Friday. If this is been consulted. If the patient is accepted into the acute rehabilitation unit. He may be transferred there at any time. He currently has no other acute medical issues requiring medical management. VS, I&O, 24H, Fishbone Vital Signs/I&O Vital Signs Date Time Temp Pulse Resp B/P (MAP) Pulse Ox O2 Delivery O2 Flow Rate FiO2 12/15/19 06:00 98.2 70 18 160/68 (98) 96 Room Air I&O- Last 24 Hours up to 6 AM 12/15/19 05:59 Intake Total 360 ml Output Total 1225 ml Balance -865 ml Laboratory Data 24H LABS Laboratory Tests 2 12/14/19 12:45: Bedside Glucose (Misc Panel) 180H 12/14/19 16:50: Bedside Glucose (Misc Panel) 171H 12/14/19 20:47: Bedside Glucose (Misc Panel) 193H 12/15/19 00:10: Prothrombin Time 13.2, Prothromb Time International Ratio 0.98 12/15/19 06:28: Nucleated Red Blood Cells % (auto) 0.0, Anion Gap 3L, Glomerular Filtration Rate 51.0, Calcium Level 8.6L CBC/BMP Laboratory Tests 12/15/19 06:28 TASHA NEVES MD Dec 15, 2019 09:38
[2019-12-15] MEDS: MOM 30ML SUSPENSION UDC PO SCH ×2 (09:47→21:13)
[2019-12-15] MEDS: SENNA 8.6 MG TAB (SENOKOT) PO SCH (09:47)
[2019-12-15] MEDS: NIFEdipine 30 MG XL TAB PO SCH (09:48)
[2019-12-15] MEDS: **hydrALAZINE** 50 MG TAB PO SCH ×3 (09:49→18:00)
[2019-12-15] MEDS: METOPROLOL SUCC (TopROL XL) 50MG **XL** TAB PO SCH (09:49)
[2019-12-15] MEDS: ACETAMINOPHEN 500 MG TAB PO SCH ×3 (09:50→21:14)
[2019-12-15] MEDS: LEVEMIR (INSULIN DETEMIR) 1 UNITS/0.01ML SC SCH (09:50)
[2019-12-15] MEDS: DOCUSATE SODIUM 100 MG CAP PO SCH ×2 (09:50→21:13)
[2019-12-15] MEDS: PARoxetine 20 MG TAB PO SCH (09:50)
[2019-12-15] MEDS ORDERED: cloNIDine 0.1 MG TAB PO ONE (11:00)
[2019-12-15] MEDS: MORPHINE 4 MG/ML 1ML VIAL/SYRINGE (J2270) IV ONE ×2 (11:00→12:04)
[2019-12-15] MEDS ORDERED: NIFEdipine 30 MG XL TAB PO ONE (11:45)
[2019-12-15] MEDS ORDERED: METOPROLOL TART 25 MG TABLET PO ONE (11:45)
[2019-12-15] MEDS ORDERED: ISOSORBIDE DIN. (ISORDIL) 20 MG TAB PO SCH (12:00)
[2019-12-15] MEDS: SIMVASTATIN 40 MG TAB PO SCH (18:47)
[2019-12-15] MEDS: METOPROLOL TART 25 MG TABLET PO SCH (21:00)
[2019-12-15] MEDS: ASPIRIN 81 MG ENTERIC TAB PO SCH (21:13)
[2019-12-15] MEDS: PANTOPRAZOLE 40MG TAB (PROTONIX) PO SCH (21:13)
[2019-12-15] MEDS: QUEtiapine FUMARATE 25 MG TAB PO SCH (21:13)
[2019-12-16] MEDS: **hydrALAZINE** 50 MG TAB PO SCH
[2019-12-16 05:52] LABS: HEMATOCRIT 32.1 % (42.0-52.0); MEAN CORPUSCULAR HEMOGLOBIN 28.5 pg (27.0-33.0); MEAN CORPUSCULAR HGB CONC 31.2 g/dl (32.0-36.5); MEAN CORPUSCULAR VOLUME 91.5 fl (80.0-96.0); PLATELET COUNT, AUTOMATED 295 10^3/uL (150-450); RED BLOOD COUNT 3.51 10^6/uL (4.30-6.10); WHITE BLOOD COUNT 7.1 10^3/uL (4.0-10.0)
[2019-12-16 06:00] VITALS: BP_SYST 172; BP_DIAS 2; BP_DIAS 62
[2019-12-16] MEDS ORDERED: **hydrALAZINE** 50 MG TAB PO PRN (06:00)
[2019-12-16] MEDS ORDERED: **hydrALAZINE** 50 MG TAB PO SCH (06:00)
[2019-12-16 06:10] LABS: CALCIUM LEVEL 8.4 MG/DL (8.8-10.2); CREATININE FOR GFR 1.54 MG/DL (0.70-1.30); GLOMERULAR FILTRATION RATE 45.7 (>35); POTASSIUM SERUM 4.3 MEQ/L (3.5-5.1)
[2019-12-16] MEDS: SLF 3 ML SYR IV SCH ×3 (06:28→21:04)
[2019-12-16] MEDS ORDERED: METO1TAB87 PO (07:32)
[2019-12-16] MEDS ORDERED: MIRA3350 PO (07:33)
[2019-12-16] MEDS ORDERED: TRAM50TA2 PO (07:33)
[2019-12-16] MEDS ORDERED: QUET1TAB7 PO (07:33)
[2019-12-16] MEDS ORDERED: HYDR100T PO (07:33)
[2019-12-16] MEDS ORDERED: NIFE1TAB52 PO (07:33)
[2019-12-16] MEDS ORDERED: SENO8.6T10 PO (07:33)
[2019-12-16] MEDS: PARoxetine 20 MG TAB PO SCH (09:14)
[2019-12-16] MEDS: SENNA 8.6 MG TAB (SENOKOT) PO SCH (09:14)
[2019-12-16] MEDS: DOCUSATE SODIUM 100 MG CAP PO SCH ×2 (09:14→20:56)
[2019-12-16] MEDS: MIRALAX *UNIT DOSE* 17GM PACKET PO SCH ×2 (09:14→20:56)
[2019-12-16] MEDS: NIFEdipine 30 MG XL TAB PO SCH (09:17)
[2019-12-16] MEDS: LEVEMIR (INSULIN DETEMIR) 1 UNITS/0.01ML SC SCH (09:20)
[2019-12-16] MEDS: METOPROLOL TART 25 MG TABLET PO SCH ×2 (09:20→20:58)
[2019-12-16] MEDS: MOM 30ML SUSPENSION UDC PO SCH ×2 (09:21→20:56)
[2019-12-16] MEDS: ACETAMINOPHEN 500 MG TAB PO SCH ×3 (09:21→20:57)
--- NOTE | 2019-12-16 10:21 | IPNPDOC ---
Date Seen The patient was seen on 12/16/19. Progress Note SUBJECTIVE: Despite having uncontrolled blood pressure he denied any chest pain, pressure, tightness, shortness of breath, lightheadedness. He has slight headache this morning, alleviated with Tylenol. He says he has no pain in his lower back. He is currently sitting on his bed eating his breakfast. Patient is being evaluated by the acute rehabilitation unit. No other acute medical issues OBJECTIVE PHYSICAL EXAMINATION: VITAL SIGNS: Please see below. GENERAL: Eating his breakfast able to speak in full sentences. No respiratory distress HEENT: No pallor, icterus, jaundice, no JVD, thyromegaly or cervical lymphadenopathy CARDIOVASCULAR: S1, S2 regular rate rhythm, no murmurs, rubs or gallops RESPIRATORY: Clear to auscultation bilaterally, air entry is equal. No kyphosis or scoliosis. No wheezing, rales or rhonchi ABDOMINAL: Positive bowel sounds, soft, nontender, nondistended. No he patosplenomegaly. No abdominal bruits. , No CVA tenderness. Carr catheter with slightly yellow urine without hematu. EXTREMITIES no cyanosis, clubbing or pitting edema. Gait was not tested. Order function. 5 out of 54 extremities LABORATORY DATA, IMAGING STUDIES, MICROBIOLOGY: Please see below. MRI of the lumbar spine 12/13/19 IMPRESSION: 1. Findings consistent with an acute to subacute compression fracture at L2. No obvious mass demonstrated favoring an osteoporotic compression fracture although occult neoplasm not absolutely excluded. 2. Mild central spinal stenosis at L2-L3, moderate to severe central spinal stenosis at L3-L4, and moderate central spinal stenosis at L4-L5. 3. Bulging annulus L5-S1 with small central disc protrusion and possible impingement on the exiting right S1 nerve root. Electronically signed by: Brian Dexter On 12/13/2019 20:21:11 PM MRI abdomen without and with contrast 12/14/2019 1.7 cm complicated exophytic lesion arising from the inferior pole of the right kidney poorly evaluated due to extensive motion artifact. 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 If the patient is not a surgical candidate reimaging every 2 years or 4 years could be performed. Decision to pursue EUS and fine-needle aspiration should be anchored to patient's overall health and preference HOSPITAL MEDICATIONS: Nifedipine, hydralazine when necessary, metoprolol, milk of magnesia, MiraLAX, senna, tramadol, acetaminophen, Levemir, Paxil, MiraLAX, hypoglycemic protocol, Seroquel, Colace, Protonix, aspirin, Zocor ASSESSMENT AND PLAN: 89-year-old male with history of transient ischemic attack, hypertension, diabetes, dyslipidemia, coronary artery disease, status post coronary artery bypass graft, admitted through the emergency room with complaints of constipation and insomnia. Intractable back pain and a fall one week prior to presentation. Evaluation included CT abdomen and pelvis which showed an acute L2 compression fracture, central canal stenosis at L2-L5 with bulging annulus at L5-S1 with a small central disc protrusion and possible impingement on the exiting right S1 nerve orthopedic surgery has been consulted for activity and further recommendations. Patient was found to have renal cyst, rule out kidney neoplasm with plans for MRI with and without contrast despite creatinine of 1.3. GFR remains at 51 and adequate for a contrast study. Medical oncologist, Dr. WINCHESTER recommended optimization of patient's functional capacity before proceeding with any invasive intervention in case. MRI of the abdomen shows renal neoplasm. 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 He is currently medically stable and is being evaluated by the acute rehabilitation unit. Per medical oncologist, No further evaluation is necessary at this time. His bone scan was unremarkable and only showed osteoarthritis. Renal findings were unchanged from the MRI done yesterday to the CT abdomen and pelvis that was done previously . His medical oncologist recommends outpatient follow-up and surveillance. . No need for further inpatient evaluation. Patient's daughter, who is his primary caregiver is currently out of town and will be returning on Friday. IF ARU accepts the patient's he may be transferred to the acute rehabilitation unit at any time VS, I&O, 24H, Fishbone Vital Signs/I&O Vital Signs Date Time Temp Pulse Resp B/P (MAP) Pulse Ox O2 Delivery O2 Flow Rate FiO2 12/16/19 09:20 62 160/62 12/16/19 06:00 96.2 18 95 Room Air I&O- Last 24 Hours up to 6 AM 12/16/19 06:00 Intake Total 610 ml Output Total 300 ml Balance 310 ml Laboratory Data 24H LABS Laboratory Tests 2 12/15/19 11:57: Bedside Glucose (Misc Panel) 169H 12/15/19 16:52: Bedside Glucose (Misc Panel) 201H 12/15/19 21:34: Bedside Glucose (Misc Panel) 243H 12/16/19 05:37: Nucleated Red Blood Cells % (auto) 0.0, Anion Gap 5L, Glomerular Filtration Rate 45.7, Calcium Level 8.4L CBC/BMP Laboratory Tests 12/16/19 05:37 TASHA NEVES MD Dec 16, 2019 10:21
[2019-12-16 14:00] VITALS: BP 154/58
[2019-12-16] MEDS: SIMVASTATIN 40 MG TAB PO SCH (17:44)
[2019-12-16] MEDS: ASPIRIN 81 MG ENTERIC TAB PO SCH (20:56)
[2019-12-16] MEDS: PANTOPRAZOLE 40MG TAB (PROTONIX) PO SCH (20:57)
[2019-12-16] MEDS: QUEtiapine FUMARATE 25 MG TAB PO SCH (20:57)
[2019-12-16 22:00] VITALS: BP 138/78
[2019-12-17 06:00] VITALS: BP 150/56
[2019-12-17] MEDS: SLF 3 ML SYR IV SCH ×3 (06:54→22:58)
[2019-12-17] MEDS: NIFEdipine 30 MG XL TAB PO SCH (09:00)
[2019-12-17] MEDS: METOPROLOL TART 25 MG TABLET PO SCH ×2 (09:00→20:47)
[2019-12-17] MEDS: ACETAMINOPHEN 500 MG TAB PO SCH ×3 (09:58→20:43)
[2019-12-17] MEDS: MOM 30ML SUSPENSION UDC PO SCH ×2 (09:59→20:42)
[2019-12-17] MEDS: SENNA 8.6 MG TAB (SENOKOT) PO SCH (09:59)
[2019-12-17] MEDS: MIRALAX *UNIT DOSE* 17GM PACKET PO SCH ×2 (09:59→20:42)
[2019-12-17] MEDS: DOCUSATE SODIUM 100 MG CAP PO SCH ×2 (09:59→20:43)
[2019-12-17] MEDS: PARoxetine 20 MG TAB PO SCH (09:59)
[2019-12-17] MEDS: LEVEMIR (INSULIN DETEMIR) 1 UNITS/0.01ML SC SCH (10:01)
--- NOTE | 2019-12-17 10:33 | IPNPDOC ---
Date Seen The patient was seen on 12/17/19. Progress Note SUBJECTIVE: Patient is lying in his left side in bed. No complaints of back pain. Patient's blood pressure is better controlled but still elevated. He denies any headache, changes in vision, chest pain, pressure, tightness or shortness of breath. No other issues overnight OBJECTIVE PHYSICAL EXAMINATION: VITAL SIGNS: Please see below. GENERAL: Slightly hard of hearing able to speak in full sentences. No respiratory distress HEENT: Face is symmetric No pallor, icterus, jaundice, no JVD, thyromegaly or cervical lymphadenopathy CARDIOVASCULAR: S1, S2 regular rate rhythm, no murmurs, rubs or gallops RESPIRATORY: Clear to auscultation bilaterally, air entry is equal. No kyphosis or scoliosis. No wheezing, rales or rhonchi ABDOMINAL: Positive bowel sounds, soft, nontender, nondistended. No hepatosplenomegaly. No abdominal bruits. , No CVA tenderness. Carr catheter with slightly yellow urine EXTREMITIES no cyanosis, clubbing or pitting edema. Gait was not tested. Order function. 5 out of 54 extremities LABORATORY DATA, IMAGING STUDIES, MICROBIOLOGY: Please see below. MRI of the lumbar spine 12/13/19 IMPRESSION: 1. Findings consistent with an acute to subacute compression fracture at L2. No obvious mass demonstrated favoring an osteoporotic compression fracture although occult neoplasm not absolutely excluded. 2. Mild central spinal stenosis at L2-L3, moderate to severe central spinal stenosis at L3-L4, and moderate central spinal stenosis at L4-L5. 3. Bulging annulus L5-S1 with small central disc protrusion and possible impingement on the exiting right S1 nerve root. Electronically signed by: Brian Dexter On 12/13/2019 20:21:11 PM MRI abdomen without and with contrast 12/14/2019 1.7 cm complicated exophytic lesion arising from the inferior pole of the right kidney poorly evaluated due to extensive motion artifact. 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 If the patient is not a surgical candidate reimaging every 2 years or 4 years could be performed. Decision to pursue EUS and fine-needle aspiration should be anchored to patient's overall health and preference HOSPITAL MEDICATIONS: Nifedipine, hydralazine when necessary, metoprolol, milk of magnesia, MiraLAX, senna, tramadol, acetaminophen, Levemir, Paxil, MiraLAX, hypoglycemic protocol, Seroquel, Colace, Protonix, aspirin, Zocor ASSESSMENT AND PLAN: 89-year-old male with history of transient ischemic attack, hypertension, diabetes, dyslipidemia, coronary artery disease, status post coronary artery bypass graft, admitted through the emergency room with complaints of constipation and insomnia. Intractable back pain and a fall one week prior to presentation. Evaluation included CT abdomen and pelvis which showed an acute L2 compression fracture, central canal stenosis at L2-L5 with bulging annulus at L5-S1 with a small central disc protrusion and possible impingement on the exiting right S1 nerve orthopedic surgery has been consulted for activity and further recommendations. Patient was found to have renal cyst, rule out kidney neoplasm with plans for MRI with and without contrast despite creatinine of 1.3. GFR remains at 51 and adequate for a contrast study. Medical oncologist, Dr. SOLIS recommended optimization of patient's functional capacity before proceeding with any invasive intervention in case. MRI of the abdomen shows renal neoplasm. PROBLEMS: Mechanical fall at home L2-L5 spinal stenosis, moderate spinal stenosis at L4-L5 Right S1 nerve root impingement due to bulging annulus at L5-S1 with small central disc protrusion Acute to subacute compression fracture at L2 favoring osteoporotic compression fracture Right exophytic lesion of the lower pole of the kidney rule out renal neoplasm History of prostate carcinoma 10 years ago, status post prostatectomy Diabetes Hypertension, uncontrolled Insomnia Constipation Chronic Dementia/acute delirium, resolving Intractable back pain secondary to spinal stenosis and mechanical fall Debility/ physical deconditioning Plan: Blood pressure is better. Pain is controlled. Patient is cooperative, medical issues have improved. Patient is currently waiting on insurance approval for acute rehabilitation unit. . Continue all other present management.per oncologist Dr. Solis, no need for further inpatient evaluation. Patient is to improve his functional capacity and outpatient follow-up in the office to discuss further management. VS, I&O, 24H, Fishbone Vital Signs/I&O Vital Signs Date Time Temp Pulse Resp B/P (MAP) Pulse Ox O2 Delivery O2 Flow Rate FiO2 12/17/19 09:00 72 138/79 12/17/19 06:00 97.8 18 93 Room Air I&O- Last 24 Hours up to 6 AM 12/17/19 05:59 Intake Total 1235 ml Output Total 0 ml Balance 1235 ml Laboratory Data 24H LABS Laboratory Tests 2 12/16/19 11:57: Bedside Glucose (Misc Panel) 183H 12/16/19 16:47: Bedside Glucose (Misc Panel) 278H TASHA NEVES MD Dec 17, 2019 10:33
[2019-12-17 14:00] VITALS: BP 157/71
[2019-12-17] MEDS: SIMVASTATIN 40 MG TAB PO SCH (17:16)
[2019-12-17] MEDS: ASPIRIN 81 MG ENTERIC TAB PO SCH (20:42)
[2019-12-17] MEDS: PANTOPRAZOLE 40MG TAB (PROTONIX) PO SCH (20:42)
[2019-12-17] MEDS: QUEtiapine FUMARATE 25 MG TAB PO SCH (20:42)
[2019-12-17 22:00] VITALS: BP 164/70
[2019-12-18] MEDS: SLF 3 ML SYR IV SCH ×3 (05:03→20:42)
[2019-12-18 06:00] VITALS: BP 165/72
[2019-12-18] MEDS: **hydrALAZINE** 50 MG TAB PO PRN (06:57)
[2019-12-18] MEDS: METOPROLOL TART 25 MG TABLET PO SCH ×2 (09:00→20:41)
[2019-12-18] MEDS: SENNA 8.6 MG TAB (SENOKOT) PO SCH (09:05)
[2019-12-18] MEDS: MIRALAX *UNIT DOSE* 17GM PACKET PO SCH ×2 (09:05→20:41)
[2019-12-18] MEDS: MOM 30ML SUSPENSION UDC PO SCH ×2 (09:05→20:41)
[2019-12-18] MEDS: LEVEMIR (INSULIN DETEMIR) 1 UNITS/0.01ML SC SCH (09:05)
[2019-12-18] MEDS: PARoxetine 20 MG TAB PO SCH (09:05)
[2019-12-18] MEDS: DOCUSATE SODIUM 100 MG CAP PO SCH ×2 (09:07→20:41)
[2019-12-18] MEDS: NIFEdipine 30 MG XL TAB PO SCH (09:07)
[2019-12-18] MEDS: ACETAMINOPHEN 500 MG TAB PO SCH ×3 (09:07→20:40)
--- NOTE | 2019-12-18 11:02 | IPNPDOC ---
Date Seen The patient was seen on 12/18/19. Progress Note SUBJECTIVE: sleeping comfortably and denies any pain in his back. sbp remains elevated, and being titrated. no c/o cp, pressure,sob. awaiting aru acceptance and insurance coverage. no other new complaints. OBJECTIVE PHYSICAL EXAMINATION: VITAL SIGNS: Please see below. GENERAL: asleep, but easily arousable. answering questions appropriately. slightly hard of hearing. HEENT: Face is symmetric No pallor, icterus, jaundice, no JVD, thyromegaly or cervical lymphadenopathy CARDIOVASCULAR: S1, S2 regular rate rhythm, no murmurs, rubs or gallops RESPIRATORY: Clear to auscultation bilaterally, air entry is equal. No kyphosis or scoliosis. No wheezing, rales or rhonchi ABDOMINAL: Positive bowel sounds, soft, nontender, nondistended. No hepatosplenomegaly. No abdominal bruits. , No CVA tenderness. Carr catheter with slightly yellow urine EXTREMITIES no cyanosis, clubbing or pitting edema. Gait was not tested. Order function. 5 out of 54 extremities LABORATORY DATA, IMAGING STUDIES, MICROBIOLOGY: Please see below. MRI of the lumbar spine 12/13/19 IMPRESSION: 1. Findings consistent with an acute to subacute compression fracture at L2. No obvious mass demonstrated favoring an osteoporotic compression fracture although occult neoplasm not absolutely excluded. 2. Mild central spinal stenosis at L2-L3, moderate to severe central spinal stenosis at L3-L4, and moderate central spinal stenosis at L4-L5. 3. Bulging annulus L5-S1 with small central disc protrusion and possible impingement on the exiting right S1 nerve root. Electronically signed by: Brian Dexter On 12/13/2019 20:21:11 PM MRI abdomen without and with contrast 12/14/2019 1.7 cm complicated exophytic lesion arising from the inferior pole of the right kidney poorly evaluated due to extensive motion artifact. 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 If the patient is not a surgical candidate reimaging every 2 years or 4 years could be performed. Decision to pursue EUS and fine-needle aspiration should be anchored to patient's overall health and preference HOSPITAL MEDICATIONS: Nifedipine, hydralazine when necessary, metoprolol, milk of magnesia, MiraLAX, senna, tramadol, acetaminophen, Levemir, Paxil, MiraLAX, hypoglycemic protocol, Seroquel, Colace, Protonix, aspirin, Zocor ASSESSMENT AND PLAN: 89-year-old male with history of transient ischemic attack, hypertension, diabetes, dyslipidemia, coronary artery disease, status post coronary artery bypass graft, admitted through the emergency room with complaints of constipation and insomnia. Intractable back pain and a fall one week prior to presentation. Evaluation included CT abdomen and pelvis which show ed an acute L2 compression fracture, central canal stenosis at L2-L5 with bulging annulus at L5-S1 with a small central disc protrusion and possible impingement on the exiting right S1 nerve orthopedic surgery has been consulted for activity and further recommendations. Patient was found to have renal cyst, rule out kidney neoplasm with plans for MRI with and without contrast despite creatinine of 1.3. GFR remains at 51 and adequate for a contrast study. Medical oncologist, Dr. WINCHESTER recommended optimization of patient's functional capacity before proceeding with any invasive intervention in case. MRI of the abdomen shows renal neoplasm. PROBLEMS: Mechanical fall at home L2-L5 spinal stenosis, moderate spinal stenosis at L4-L5 Right S1 nerve root impingement due to bulging annulus at L5-S1 with small central disc protrusion Acute to subacute compression fracture at L2 favoring osteoporotic compression fracture Right exophytic lesion of the lower pole of the kidney rule out renal neoplasm History of prostate carcinoma 10 years ago, status post prostatectomy Diabetes Hypertension, uncontrolled Insomnia Constipation on bowel regimen Chronic Dementia/acute delirium, resolving Intractable back pain secondary to spinal stenosis and mechanical fall Debility/ physical deconditioning Plan: awaiting ARU acceptance and medical insurance coverage for ARU. will titrate bp meds for better control. despite high bp, no acute ischemic complaints. continue all other mgt. VS, I&O, 24H, Fishbone Vital Signs/I&O Vital Signs Date Time Temp Pulse Resp B/P (MAP) Pulse Ox O2 Delivery O2 Flow Rate FiO2 12/18/19 09:00 55 167/63 12/18/19 06:00 96.5 14 96 Room Air I&O- Last 24 Hours up to 6 AM 12/18/19 06:00 Intake Total 550 ml Output Total 1050 ml Balance -500 ml Laboratory Data 24H LABS Laboratory Tests 2 12/17/19 11:22: Bedside Glucose (Misc Panel) 198H 12/17/19 17:22: Bedside Glucose (Misc Panel) 113H 12/17/19 20:47: Bedside Glucose (Misc Panel) 184H 12/18/19 06:27: Bedside Glucose (Misc Panel) 140H TASHA NEVES MD Dec 18, 2019 11:02
[2019-12-18 14:00] VITALS: BP 155/72
[2019-12-18] MEDS: SIMVASTATIN 40 MG TAB PO SCH (17:28)
[2019-12-18] MEDS: ASPIRIN 81 MG ENTERIC TAB PO SCH (20:40)
[2019-12-18] MEDS: PANTOPRAZOLE 40MG TAB (PROTONIX) PO SCH (20:41)
[2019-12-18] MEDS: QUEtiapine FUMARATE 25 MG TAB PO SCH (20:42)
[2019-12-18 22:00] VITALS: BP 168/72
[2019-12-19] MEDS: SLF 3 ML SYR IV SCH (05:03)
[2019-12-19] MEDS: **hydrALAZINE** 50 MG TAB PO PRN (05:52)
[2019-12-19 06:00] VITALS: BP 156/94
--- NOTE | 2019-12-19 09:38 | IPNPDOC ---
Date Seen The patient was seen on 12/19/19. Progress Note SUBJECTIVE: RN noted dried clots when pt urinated. no gross hematuria. pt denies lightheadedness, dizziness, sob, palpitations. "I'm ready to go home." pt feels stronger, but [facility]. Daughter still in [place]. no one is at home. pt has no new c/o. denies f/c/dysuria, urgency,frequency, chills. Bp still 160mmhg and higher most of the day .no c/o cp, sob. OBJECTIVE PHYSICAL EXAMINATION: VITAL SIGNS: Please see below. GENERAL:snoring, but arousable.able to answer questions without distress. AAOx3. slightly hard of hearing. HEENT: Face is symmetric No pallor, icterus, jaundice, no JVD, thyromegaly or cervical lymphadenopathy CARDIOVASCULAR: S1, S2 regular rate rhythm, no murmurs, rubs or gallops RESPIRATORY: Clear to auscultation bilaterally, air entry is equal. No kyphosis or scoliosis. No wheezing, rales or rhonchi ABDOMINAL: Positive bowel sounds, soft, nontender, nondistended. No hepatosplenomegaly. No abdominal bruits. , No CVA tenderness. no gross hematuria EXTREMITIES no cyanosis, clubbing or pitting edema. Gait was not tested. Order function. 5 out of 54 extremities LABORATORY DATA, IMAGING STUDIES, MICROBIOLOGY: Please see below. MRI of the lumbar spine 12/13/19 IMPRESSION: 1. Findings consistent with an acute to subacute compression fracture at L2. No obvious mass demonstrated favoring an osteoporotic compression fracture although occult neoplasm not absolutely excluded. 2. Mild central spinal stenosis at L2-L3, moderate to severe central spinal stenosis at L3-L4, and moderate central spinal stenosis at L4-L5. 3. Bulging annulus L5-S1 with small central disc protrusion and possible impingement on the exiting right S1 nerve root. Electronically signed by: Brian Dexter On 12/13/2019 20:21:11 PM MRI abdomen without and with contrast 12/14/2019 1.7 cm complicated exophytic lesion arising from the inferior pole of the right kidney poorly evaluated due to extensive motion artifact. 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 If the patient is not a surgical candidate reimaging every 2 years or 4 years could be performed. Decision to pursue EUS and fine-needle aspiration should be anchored to patient's overall health and preference HOSPITAL MEDICATIONS: Nifedipine, hydralazine when necessary, metoprolol, milk of magnesia, MiraLAX, senna, tramadol, acetaminophen, Levemir, Paxil, MiraLAX, hypoglycemic protocol, Seroquel, Colace, Protonix, aspirin, Zocor ASSESSMENT AND PLAN: 89-year-old male with history of transient ischemic attack, hypertension, diabetes, dyslipidemia, coronary artery disease, status post coronary artery bypass graft, admitted through the emergency room with complaints of constipation and insomnia. Intractable back pain and a fall one week prior to presentation. Evaluation included CT abdomen and pelvis which showed an acute L2 compression fracture, central canal stenosis at L2-L5 with bulging annulus at L5-S1 with a small central disc protrusion and possible impingement on the exiting right S1 nerve orthopedic surgery has been consulted for activity and further recommendations. Patient was found to have renal cyst, rule out kidney neoplasm with plans for MRI with and without contrast despite creatinine of 1.3. GFR remains at 51 and adequate for a contrast study. Medical oncologist, Dr. WINCHESTER recommended optimization of patient's functional capacity before proceeding with any invasive intervention in case. MRI of the abdomen shows renal neoplasm. PROBLEMS: Mechanical fall at home L2-L5 spinal stenosis, moderate spinal stenosis at L4-L5 Right S1 nerve root impingement due to bulging annulus at L5-S1 with small central disc protrusion Acute to subacute compression fracture at L2 favoring osteoporotic compression fracture Right exophytic lesion of the lower pole of the kidney rule out renal neoplasm History of prostate carcinoma 10 years ago, status post prostatectomy Diabetes Hypertension, uncontrolled Insomnia Constipation on bowel regimen Chronic Dementia/acute delirium, resolving Intractable back pain secondary to spinal stenosis and mechanical fall Debility/ physical deconditioning s/p Traumatic nobles placement w blood clots. Plan: patient anxious to go home. despite clots noted in urine, no gross hematuria, or symptomatic anemia complaints. will continue to titrate bp meds for better control no pain. awaiting ARU acceptance and medical insurance coverage. VS, I&O, 24H, Fishbone Vital Signs/I&O Vital Signs Date Time Temp Pulse Resp B/P (MAP) Pulse Ox O2 Delivery O2 Flow Rate FiO2 12/19/19 06:00 98.0 67 18 156/94 (114) 97 Room Air I&O- Last 24 Hours up to 6 AM 12/19/19 06:00 Intake Total 660 ml Output Total 1225 ml Balance -565 ml Laboratory Data 24H LABS Laboratory Tests 2 12/18/19 11:40: Bedside Glucose (Misc Panel) 193H 12/18/19 17:00: Bedside Glucose (Misc Panel) 256H 12/18/19 20:39: Bedside Glucose (Misc Panel) 239H 12/19/19 06:29: Bedside Glucose (Misc Panel) 155H TASHA NEVES MD Dec 19, 2019 09:38
[2019-12-19] MEDS ORDERED: amLODIPine 10 MG TAB PO ONE (10:00)
[2019-12-19] MEDS: LEVEMIR (INSULIN DETEMIR) 1 UNITS/0.01ML SC SCH (10:02)
[2019-12-19] MEDS: MIRALAX *UNIT DOSE* 17GM PACKET PO SCH ×2 (10:03→21:00)
[2019-12-19] MEDS: MOM 30ML SUSPENSION UDC PO SCH ×2 (10:03→21:00)
[2019-12-19] MEDS: SENNA 8.6 MG TAB (SENOKOT) PO SCH (10:03)
[2019-12-19] MEDS: METOPROLOL TART 25 MG TABLET PO SCH ×2 (10:04→21:00)
[2019-12-19] MEDS: DOCUSATE SODIUM 100 MG CAP PO SCH ×2 (10:04→21:00)
[2019-12-19] MEDS: ACETAMINOPHEN 500 MG TAB PO SCH ×3 (10:05→21:00)
[2019-12-19] MEDS: NIFEdipine 30 MG XL TAB PO SCH (10:05)
[2019-12-19] MEDS: PARoxetine 20 MG TAB PO SCH (10:06)
[2019-12-19 14:00] VITALS: BP 153/64
[2019-12-19] MEDS: SIMVASTATIN 40 MG TAB PO SCH (17:12)
[2019-12-19] MEDS: QUEtiapine FUMARATE 25 MG TAB PO SCH (21:00)
[2019-12-19] MEDS: ASPIRIN 81 MG ENTERIC TAB PO SCH (21:00)
[2019-12-19] MEDS: PANTOPRAZOLE 40MG TAB (PROTONIX) PO SCH (21:00)
[2019-12-19 22:00] VITALS: BP 148/65
[2019-12-19] MEDS ORDERED: HumaLOG INSULIN (NovoLOG) PER UNIT SC STA (22:00)
[2019-12-20 06:00] VITALS: BP 133/74
[2019-12-20 06:19] LABS: BASO # 0.1 10^3/uL (0.0-0.2); BASO % 0.8 % (0.0-1.0); EOS # 0.3 10^3/uL (0.0-0.5); EOS % 3.3 % (0.0-3.0); HEMATOCRIT 31.1 % (42.0-52.0); HEMOGLOBIN 9.4 g/dl (13.5-17.5); LYMPH # 1.7 10^3/uL (1.5-5.0); LYMPH % 21.4 % (24.0-44.0); MEAN CORPUSCULAR HEMOGLOBIN 28.5 pg (27.0-33.0); MEAN CORPUSCULAR HGB CONC 30.2 g/dl (32.0-36.5); MEAN CORPUSCULAR VOLUME 94.2 fl (80.0-96.0); MONO # 0.7 10^3/uL (0.0-0.8); MONO % 9.1 % (0.0-5.0); NEUTROPHILS # 5.2 10^3/uL (1.5-8.5); NEUTROPHILS % 64.9 % (36.0-66.0); PLATELET COUNT, AUTOMATED 318 10^3/uL (150-450)
[2019-12-20 06:35] LABS: CALCIUM LEVEL 8.3 MG/DL (8.8-10.2); CREATININE FOR GFR 1.63 MG/DL (0.70-1.30); GLOMERULAR FILTRATION RATE 42.8 (>35); MAGNESIUM LEVEL 3.3 MG/DL (1.8-2.4); POTASSIUM SERUM 4.3 MEQ/L (3.5-5.1)
--- NOTE | 2019-12-20 09:14 | IPNPDOC ---
Date Seen The patient was seen on 12/20/19. Progress Note SUBJECTIVE: able toambulate with wheeled walker from bathroom to bedside recliner with contact guard with PT today. no recurrent hematuria or blood clots since nobles was discontinued. SBP improved to 130mmHg, and asx. denies sob, cp, headache, changes in vision. no pain. OBJECTIVE PHYSICAL EXAMINATION: VITAL SIGNS: Please see below. GENERAL: hard of hearing. no use of respiratory accessory muscles. walked from bathroom to recliner without distress. HEENT: Face is symmetric No pallor, icterus, jaundice, tongue midline. moist mucus membranes, no JVD, thyromegaly or cervical lymphadenopathy CARDIOVASCULAR: S1, S2 regular rate rhythm, no murmurs, rubs or gallops nondisplaced PMI RESPIRATORY: Clear to auscultation bilaterally, air entry is equal. No kyphosis or scoliosis. No wheezing, rales or rhonchi ABDOMINAL: Positive bowel sounds, soft, nontender, nondistended. No hepatosplenomegaly. No abdominal bruits. , No CVA tenderness. no gross hematuria EXTREMITIES no cyanosis, clubbing or pitting edema. ambulated with a walker. LABORATORY DATA, IMAGING STUDIES, MICROBIOLOGY: Please see below. MRI of the lumbar spine 12/13/19 IMPRESSION: 1. Findings consistent with an acute to subacute compression fracture at L2. No obvious mass demonstrated favoring an osteoporotic compression fracture although occult neoplasm not absolutely excluded. 2. Mild central spinal stenosis at L2-L3, moderate to severe central spinal stenosis at L3-L4, and moderate central spinal stenosis at L4-L5. 3. Bulging annulus L5-S1 with small central disc protrusion and possible impingement on the exiting right S1 nerve root. Electronically signed by: Brian Dexter On 12/13/2019 20:21:11 PM MRI abdomen without and with contrast 12/14/2019 1.7 cm complicated exophytic lesion arising from the inferior pole of the right kidney poorly evaluated due to extensive motion artifact. 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 If the patient is not a surgical candidate reimaging every 2 years or 4 years could be performed. Decision to pursue EUS and fine-needle aspiration should be anchored to patient's overall health and preference HOSPITAL MEDICATIONS: Nifedipine, hydralazine when necessary, metoprolol, milk of magnesia, MiraLAX, senna, tramadol, acetaminophen, Levemir, Paxil, MiraLAX, hypoglycemic protocol, Seroquel, Colace, Protonix, aspirin, Zocor ASSESSMENT AND PLAN: 89-year-old male with history of transient ischemic attack, hypertension, diabetes, dyslipidemia, coronary artery disease, status post coronary artery bypass graft, admitted through the emergency room with compl aints of constipation and insomnia. Intractable back pain and a fall one week prior to presentation. Evaluation included CT abdomen and pelvis which showed an acute L2 compression fracture, central canal stenosis at L2-L5 with bulging annulus at L5-S1 with a small central disc protrusion and possible impingement on the exiting right S1 nerve orthopedic surgery has been consulted for activity and further recommendations. Patient was found to have renal cyst, rule out kidney neoplasm with plans for MRI with and without contrast despite creatinine of 1.3. GFR remains at 51 and adequate for a contrast study. Medical oncologist, Dr. WINCHESTER recommended optimization of patient's functional capacity before proceeding with any invasive intervention in case. MRI of the abdomen shows renal neoplasm. 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 Plan: no acute medical issues today. bp controlled on current meds. awaiting ARU acceptance and medical insurance coverage. pain is controlled. no further inpatient needs. medically stable for discharge to ARU anytime. Pt will need outpt appt w heme/onc at hospital discharge. VS, I&O, 24H, Fishbone Vital Signs/I&O Vital Signs Date Time Temp Pulse Resp B/P (MAP) Pulse Ox O2 Delivery O2 Flow Rate FiO2 10/19/20 06:00 98.0 71 18 133/74 (93) 95 Room Air I&O- Last 24 Hours up to 6 AM 12/20/19 06:00 Intake Total 1260 ml Output Total 1500 ml Balance -240 ml Laboratory Data 24H LABS Laboratory Tests 2 12/19/19 11:43: Bedside Glucose (Misc Panel) 197H 12/19/19 16:37: Bedside Glucose (Misc Panel) 170H 12/19/19 19:56: Bedside Glucose (Misc Panel) 352H 12/19/19 21:56: Bedside Glucose (Misc Panel) 386H 12/20/19 05:54: Immature Granulocyte % (Auto) 0.5, Neutrophils (%) (Auto) 64.9, Lymphocytes (%) (Auto) 21.4L, Monocytes (%) (Auto) 9.1H, Eosinophils (%) (Auto) 3.3H, Basophils (%) (Auto) 0.8, Neutrophils # (Auto) 5.2, Lymphocytes # (Auto) 1.7, Monocytes # (Auto) 0.7, Eosinophils # (Auto) 0.3, Basophils # (Auto) 0.1, Nucleated Red Blood Cells % (auto) 0.0, Anion Gap 5L, Glomerular Filtration Rate 42.8, Calcium Level 8.3L, Magnesium Level 3.3H CBC/BMP Laboratory Tests 12/20/19 05:54 TASHA NEVES MD Dec 20, 2019 09:14
[2019-12-20] MEDS: LEVEMIR (INSULIN DETEMIR) 1 UNITS/0.01ML SC SCH (10:11)
[2019-12-20] MEDS: MOM 30ML SUSPENSION UDC PO SCH ×3 (10:12→20:48)
[2019-12-20] MEDS: DOCUSATE SODIUM 100 MG CAP PO SCH ×2 (10:12→20:40)
[2019-12-20] MEDS: MIRALAX *UNIT DOSE* 17GM PACKET PO SCH ×2 (10:12→20:40)
[2019-12-20] MEDS: PARoxetine 20 MG TAB PO SCH (10:12)
[2019-12-20] MEDS: NIFEdipine 30 MG XL TAB PO SCH (10:13)
[2019-12-20] MEDS: SENNA 8.6 MG TAB (SENOKOT) PO SCH (10:13)
[2019-12-20] MEDS: METOPROLOL TART 25 MG TABLET PO SCH ×3 (10:14→20:47)
[2019-12-20] MEDS: amLODIPine 10 MG TAB PO SCH (10:14)
[2019-12-20] MEDS: ACETAMINOPHEN 500 MG TAB PO SCH ×4 (10:14→20:48)
[2019-12-20 14:00] VITALS: BP 137/48
[2019-12-20] MEDS: SIMVASTATIN 40 MG TAB PO SCH (17:59)
[2019-12-20] MEDS: PANTOPRAZOLE 40MG TAB (PROTONIX) PO SCH (20:40)
[2019-12-20] MEDS: QUEtiapine FUMARATE 25 MG TAB PO SCH (20:41)
[2019-12-20] MEDS: ASPIRIN 81 MG ENTERIC TAB PO SCH (20:41)
[2019-12-20 22:00] VITALS: BP 141/47
[2019-12-21 06:00] VITALS: BP 146/65
[2019-12-21] MEDS: DOCUSATE SODIUM 100 MG CAP PO SCH ×2 (08:16→22:11)
[2019-12-21] MEDS: NIFEdipine 30 MG XL TAB PO SCH (08:17)
[2019-12-21] MEDS: amLODIPine 10 MG TAB PO SCH (08:17)
[2019-12-21] MEDS: MOM 30ML SUSPENSION UDC PO SCH ×3 (08:17→22:09)
[2019-12-21] MEDS: ACETAMINOPHEN 500 MG TAB PO SCH ×3 (08:17→22:11)
[2019-12-21] MEDS: MIRALAX *UNIT DOSE* 17GM PACKET PO SCH ×2 (08:18→22:09)
[2019-12-21] MEDS: SENNA 8.6 MG TAB (SENOKOT) PO SCH (08:18)
[2019-12-21] MEDS: METOPROLOL TART 25 MG TABLET PO SCH ×2 (08:18→21:00)
[2019-12-21] MEDS: LEVEMIR (INSULIN DETEMIR) 1 UNITS/0.01ML SC SCH (08:18)
[2019-12-21] MEDS: PARoxetine 20 MG TAB PO SCH (08:19)
[2019-12-21 14:00] VITALS: BP 147/63
[2019-12-21] MEDS: TAMSULOSIN 0.4 MG CAP PO SCH (17:14)
[2019-12-21] MEDS: SIMVASTATIN 40 MG TAB PO SCH (17:14)
[2019-12-21] MEDS: HumaLOG INSULIN (NovoLOG) PER UNIT SC SCH ×2 (17:51→21:00)
--- NOTE | 2019-12-21 20:22 | IPNPDOC ---
Subjective Date Seen The patient was seen on 12/21/19. Subjective Chief Complaint/HPI Mr. Lester is a 89-year-old male with who is here for intractable low back pain secondary to L2 compression fraction. Today, he denies any fever/chills, chest pain, dyspnea, abdominal pain, or dysuria. Pain is controlled. Per physical therapy, he will be able to return home if he is provided 24/7 care. Constitutional: Denies: Fever Pulmonary: Denies: Dyspnea Cardiovascular: Denies: Chest Pain Gastrointestinal: Denies: Abdominal Pain Genitourinary: Denies: Dysuria Objective Physical Examination General Exam: Positive: Cooperative Eye Exam: Positive: EOMI; Negative: Sclera icteric ENT Exam: Positive: Atraumatic Neck Exam: Positive: Supple Chest Exam: Positive: Clear to auscultation; Negative: Rales, Rhonchi, Wheezing Heart Exam: Positive: Rate Normal, Regular Rhythm Abdomen Exam: Positive: Normal bowel sounds Extremity Exam: Negative: Edema Neuro Exam: Positive: Normal Speech, Cranial Nerves 3-12 NL Psych Exam: Positive: Mental status NL, Mood NL Assessment /Plan Assessment Mr. Haro is [id number] male with history of transient ischemic attack, hypertension, diabetes, dyslipidemia, coronary artery disease, status post coronary artery bypass graft, admitted through the emergency room with complaints of constipation and insomnia. Intractable back pain and a fall one week prior to presentation. Evaluation included CT abdomen and pelvis which karina wed an acute L2 compression fracture, central canal stenosis at L2-L5 with bulging annulus at L5-S1 with a small central disc protrusion and possible impingement on the exiting right S1 nerve orthopedic surgery has been consulted for activity and further recommendations. Patient was found to have renal cyst, rule out kidney neoplasm with plans for MRI with and without contrast despite creatinine of 1.3. GFR remains at 51 and adequate for a contrast study. Medical oncologist, Dr. WINCHESTER recommended optimization of patient's functional capacity before proceeding with any invasive intervention in case. MRI of the abdomen shows renal neoplasm. Patient has cleared with physical therapy. Patient may be able to return home if able to be provided with 24/7 care. Plan/VTE VTE Prophylaxis Ordered?: Yes Plan 1. Intractable back pain CT of the abdomen and pelvis demonstrated an L2 compression fracture with no repulsed fragments. Orthopedics has been consulted. Recommendations appreciated. -Outpatient follow up with orthopedics. Can do weightbearing as tolerated with walker Continue scheduled acetaminophen 2. Constipation Continue bowel regimen 3. Dementia/delirium/altered mental status Daughter says that patient's memory has been worsening May be secondary to constipation vs pain vs insomnia Treat underlying cause 4. Insomnia Continue Seroquel 5. Hypertension Continue amlodipine, nifedipine, and metoprolol 6. Coronary artery disease status post stent and CABG Continue statin, aspirin, beta meg Stable, no active chest pain 7. Diabetes mellitus Continue Levemir and sliding scale insulin 8. DVT prophylaxis SCDs and teds Dispo: Possible discharge home if patient is provided 23/09 care VS, I&O, 24H, Fishbone Vital Signs/I&O Vital Signs Date Time Temp Pulse Resp B/P (MAP) Pulse Ox O2 Delivery O2 Flow Rate FiO2 12/21/19 14:00 98.6 60 16 147/63 (91) 95 Room Air I&O- Last 24 Hours up to 6 AM 12/21/19 05:59 Intake Total 960 ml Output Total 1220 ml Balance -260 ml Laboratory Data 24H LABS Laboratory Tests 2 12/20/19 20:47: Bedside Glucose (Misc Panel) 89 12/21/19 06:34: Bedside Glucose (Misc Panel) 139H 12/21/19 11:31: Bedside Glucose (Misc Panel) 265H 12/21/19 16:58: Bedside Glucose (Misc Panel) 255H DAVID SALINAS DO Dec 21, 2019 20:22
[2019-12-21 22:00] VITALS: BP 136/54
[2019-12-21] MEDS: ASPIRIN 81 MG ENTERIC TAB PO SCH (22:09)
[2019-12-21] MEDS: PANTOPRAZOLE 40MG TAB (PROTONIX) PO SCH (22:11)
[2019-12-21] MEDS: QUEtiapine FUMARATE 25 MG TAB PO SCH (22:11)
[2019-12-22 06:57] LABS: HEMATOCRIT 32.6 % (42.0-52.0); HEMOGLOBIN 10.3 g/dl (13.5-17.5); MEAN CORPUSCULAR HEMOGLOBIN 29.3 pg (27.0-33.0); MEAN CORPUSCULAR HGB CONC 31.6 g/dl (32.0-36.5); MEAN CORPUSCULAR VOLUME 92.6 fl (80.0-96.0); PLATELET COUNT, AUTOMATED 318 10^3/uL (150-450); RED BLOOD COUNT 3.52 10^6/uL (4.30-6.10); WHITE BLOOD COUNT 8.1 10^3/uL (4.0-10.0)
[2019-12-22 07:25] LABS: CALCIUM LEVEL 8.8 MG/DL (8.8-10.2); CREATININE FOR GFR 1.54 MG/DL (0.70-1.30); GLOMERULAR FILTRATION RATE 45.7 (>35); POTASSIUM SERUM 4.2 MEQ/L (3.5-5.1)
[2019-12-22] MEDS: MOM 30ML SUSPENSION UDC PO SCH ×3 (09:00→22:41)
[2019-12-22] MEDS: LEVEMIR (INSULIN DETEMIR) 1 UNITS/0.01ML SC SCH (10:35)
[2019-12-22] MEDS: HumaLOG INSULIN (NovoLOG) PER UNIT SC SCH ×4 (10:35→21:00)
[2019-12-22] MEDS: PARoxetine 20 MG TAB PO SCH (10:36)
[2019-12-22] MEDS: NIFEdipine 30 MG XL TAB PO SCH (10:38)
[2019-12-22] MEDS: DOCUSATE SODIUM 100 MG CAP PO SCH ×2 (10:39→22:42)
[2019-12-22] MEDS: TAMSULOSIN 0.4 MG CAP PO SCH (10:39)
[2019-12-22] MEDS: METOPROLOL TART 25 MG TABLET PO SCH ×2 (10:39→21:00)
[2019-12-22] MEDS: SENNA 8.6 MG TAB (SENOKOT) PO SCH (10:39)
[2019-12-22] MEDS: amLODIPine 10 MG TAB PO SCH (10:39)
[2019-12-22] MEDS: ACETAMINOPHEN 500 MG TAB PO SCH ×3 (10:40→21:00)
[2019-12-22] MEDS: MIRALAX *UNIT DOSE* 17GM PACKET PO SCH ×2 (10:40→22:41)
--- NOTE | 2019-12-22 11:36 | REPVR ---
PROCEDURE INFORMATION: Exam: CT Head Without Contrast Exam date and time: 12/22/2019 10:14 AM Age: 89 years old Clinical indication: Altered mental status/memory loss; Additional info: AMS TECHNIQUE: Imaging protocol: Computed tomography of the head without contrast. Radiation optimization: All CT scans at this facility use at least one of these dose optimization techniques: automated exposure control; mA and/or kV adjustment per patient size (includes targeted exams where dose is matched to clinical indication); or iterative reconstruction. COMPARISON: CT Head without contrast 12/11/2019 2:42 PM FINDINGS: Brain: There is no acute intracranial hemorrhage, cerebral edema, or midline shift. Chronic microvascular ischemic changes are seen in the periventricular white matter. Age-related cerebral and cerebellar volume loss is present. Cerebral ventricles: No hydrocephalus. Bones/joints: No acute fracture. Paranasal sinuses: Chronic mucoperiosteal thickening is noted in the left sphenoid sinus. Mastoid air cells: The mastoid air cells are clear. Orbital cavity: The included orbital structures are unremarkable. Vasculature: Atherosclerotic calcifications are seen involving the cavernous carotid arteries. Soft tissues: Unremarkable. IMPRESSION: 1. No acute intracranial abnormality. 2. Atrophy and chronic deep white matter ischemic changes. Electronically signed by: Ned Boland On 12/22/2019 11:36:41 AM
[2019-12-22 14:00] VITALS: BP 140/59
[2019-12-22 14:35] LABS: ALBUMIN 2.8 GM/DL (3.2-5.2); ALT/SGPT 26 U/L (12-78); BILIRUBIN,DIRECT < 0.1 MG/DL (0.0-0.2); BILIRUBIN,TOTAL 0.2 MG/DL (0.2-1.0)
[2019-12-22] MEDS: SIMVASTATIN 40 MG TAB PO SCH (17:42)
--- NOTE | 2019-12-22 19:55 | REPVR ---
PROCEDURE INFORMATION: Exam: MR Lumbar Spine Without Contrast. Exam date and time: 12/22/2019 7:28 PM Age: 89 years old Clinical indication: Low back pain; Patient HX: Acute urinary retention, R/O cauda equina; Additional info: Acute urinary retension, R/O cauda equina TECHNIQUE: Imaging protocol: Multiplanar magnetic resonance images of the lumbar spine without intravenous contrast. COMPARISON: MRI-Spine, L.S. without con 12/13/2019 7:17 PM FINDINGS: Vertebrae: There is fairly similar, mild compression of the L2 vertebral body, with slightly decreased degree of marrow edema. Again no retropulsion. Vertebral body heights are otherwise intact. Alignment is maintained. No pars defect is identified. Spinal cord: The conus is unremarkable in appearance, with its tip at the L1 level. Multilevel findings: There are fairly similar degrees of disc desiccation indicating intervertebral disc degeneration. L1-L2: Similar small bulge combining with facet arthrosis to lead to mild bilateral neural foraminal narrowing with very mild left lateral recess narrowing, without significant central canal stenosis. L2-L3: Similar diffuse bulge combining with facet arthrosis to lead to mild right and mild to moderate left neural foraminal narrowing with very mild left lateral recess narrowing, without significant central canal stenosis. There is again small fluid in the facet joints. L3-L4: Similar disc osteophyte complex combining with facet arthrosis and ligamentum flavum hypertrophy to lead to moderate to severe right and moderate left neural foraminal narrowing with mild narrowing of the bilateral lateral recesses and mild to moderate central canal stenosis. There is small fluid in the right facet joint. L4-L5: Disc osteophyte complex combining with facet arthrosis and ligamentum flavum hypertrophy to lead to moderate to severe right and moderate left neural foraminal narrowing with very mild left lateral recess narrowing and borderline central canal stenosis. L5-S1: Similar diffuse bulge combining with facet arthrosis to lead to moderate right and mild left neural foraminal narrowing with moderate right and mild left lateral recess narrowing, without significant central canal stenosis. Soft tissues: Unremarkable. IMPRESSION: 1. Multilevel disc desiccation indicating intervertebral disk degeneration with disc displacements as described. This is similar as compared with 12/13/19, including areas of spinal stenosis, most pronounced at L3-L4, without new evidence for cauda equina. 2. Stable mild compression of the L2 vertebral body with slightly decreased marrow edema and no fragment retropulsion. Would follow-up at 8 weeks from the initial exam to exclude underlying pathology if biopsy is not performed. COMMENTS: If surgery is considered, recommend level confirmation. Electronically signed by: Lewis Pike On 12/22/2019 19:55:10 PM
[2019-12-22 20:54] LABS: ABG BASE EXCESS 6.5 (-2.0-2.0); ABG HCO3 31.9 MEQ/L (22.0-26.0); ABG O2 SATURATION 95.8 % (95.0-99.0); ABG PARTIAL PRESSURE CO2 50.5 mmHg (35.0-45.0); ABG PARTIAL PRESSURE O2 79.1 mmHg (75.0-100.0); ABG STANDARD HCO3 30.4 MEQ/L (22.0-26.0); ABG TOTAL CO2 33.5 MEQ/L (23.0-31.0); ABG pH (ARTERIAL) 7.419 UNITS (7.350-7.450)
--- NOTE | 2019-12-22 21:08 | IPNPDOC ---
Subjective Date Seen The patient was seen on 12/22/19. Subjective Chief Complaint/HPI Mr. Lester is a 89-year-old male with who is here for intractable low back pain secondary to L2 compression fraction. Overnight, he was inappropriate. Unsure if he was able to sleep overnight. This morning, denies fever/chills, chest pain, dyspnea, abdominal pain, or dysuria. Constitutional: Denies: Fever Pulmonary: Denies: Dyspnea Cardiovascular: Denies: Chest Pain Gastrointestinal: Denies: Abdominal Pain Genitourinary: Denies: Dysuria Objective Physical Examination General Exam: Positive: Cooperative Eye Exam: Positive: EOMI; Negative: Sclera icteric ENT Exam: Positive: Atraumatic Neck Exam: Positive: Supple Chest Exam: Positive: Clear to auscultation; Negative: Rales, Rhonchi, Wheezing Heart Exam: Positive: Rate Normal, Regular Rhythm Abdomen Exam: Positive: Normal bowel sounds Extremity Exam: Negative: Edema Neuro Exam: Positive: Normal Speech, Cranial Nerves 3-12 NL Psych Exam: Positive: Mood NL Assessment /Plan Assessment Mr. Haro is an 89-year-old male with history of transient ischemic attack, hypertension, diabetes, dyslipidemia, coronary artery disease, status post coronary artery bypass graft, admitted through the emergency room with complaints of constipation and insomnia. Intractable back pain and a fall one week prior to presentation. Evaluation included CT abdomen and pelvis which showed an acute L2 compression fracture, central canal stenosis at L2-L5 with bulging annulus at L5-S1 with a small central disc protrusion and possible impingement on the exiting right S1 nerve orthopedic surgery has been consulted for activity and further recommendations. Patient was found to have renal cyst, rule out kidney neoplasm with plans for MRI with and without contrast despite creatinine of 1.3. GFR remains at 51 and adequate for a contrast study. Medical oncologist, Dr. WINCHESTER recommended optimization of patient's functional capacity before proceeding with any invasive intervention in case. MRI of the abdomen s hows renal neoplasm. Patient has cleared with physical therapy. Patient may be able to return home if able to be provided with 24/7 care He has been acting inappropriate. May be secondary to urinary retention vs poor sleep. No acute changes with CT head. UA and ammonia unremarkable. Plan/VTE VTE Prophylaxis Ordered?: Yes Plan 1. Intractable back pain CT of the abdomen and pelvis demonstrated an L2 compression fracture with no repulsed fragments. Orthopedics has been consulted. Recommendations appreciated. -Outpatient follow up with orthopedics. Can do weightbearing as tolerated with walker Continue scheduled acetaminophen 2. Constipation Continue bowel regimen 3. Dementia/delirium/altered mental status Daughter says that patient's memory has been worsening May be secondary to constipation vs pain vs insomnia Treat underlying cause 4. Insomnia Increased Seroquel tonight 5. Hypertension Continue amlodipine, nifedipine, and metoprolol 6. Coronary artery disease status post stent and CABG Continue statin, aspirin, beta meg Stable, no active chest pain 7. Diabetes mellitus Continue Levemir and sliding scale insulin 8. Urinary retention -Repeat MRI does not demonstrate cauda equina -Carr catheter inserted -Patient on Tamsulosin -Will need to follow up with urology outpatient for management of Carr 9. DVT prophylaxis SCDs and teds VS, I&O, 24H, Fishbone Vital Signs/I&O Vital Signs Date Time Temp Pulse Resp B/P (MAP) Pulse Ox O2 Delivery O2 Flow Rate FiO2 12/22/19 14:00 97.9 53 18 140/59 (86) 96 Room Air I&O- Last 24 Hours up to 6 AM 12/22/19 06:00 Intake Total 1110 ml Output Total 750 ml Balance 360 ml Laboratory Data 24H LABS Laboratory Tests 2 12/22/19 06:24: Nucleated Red Blood Cells % (auto) 0.0, Anion Gap 4L, Glomerular Filtration Rate 45.7, Calcium Level 8.8 12/22/19 11:42: Bedside Glucose (Misc Panel) 157H 12/22/19 13:46: Total Bilirubin 0.2, Direct Bilirubin < 0.1, Aspartate Amino Transf (AST/SGOT) 13, Alanine Aminotransferase (ALT/SGPT) 26, Alkaline Phosphatase 136H, Ammonia 20, Total Protein 6.0L, Albumin 2.8L, Albumin/Globulin Ratio 0.9 12/22/19 14:28: Urine Color YELLOW, Urine Appearance CLEAR, Urine pH 6.0, Urine Specific [place] 1.020, Urine Protein 3+H, Urine Glucose (UA) 1+H, Urine Ketones NEGATIVE, Urine Blood NEGATIVE, Urine Nitrite NEGATIVE, Urine Bilirubin NEGATIVE, Urine Urobilinogen 0.2, Urine Leukocyte Esterase NEGATIVE, Urine WBC (Auto) 1, Urine RBC (Auto) 2, Urine Hyaline Casts (Auto) 0, Urine Bacteria (Auto) NEGATIVE, Uri ne Squamous Epithelial Cells 0, Urine Sperm (Auto) 12/22/19 17:04: Bedside Glucose (Misc Panel) 188H 12/22/19 18:23: Blood Gas Bicarbonate Standard 30.4H, Arterial Blood pH 7.419, Arterial Blood Partial Pressure CO2 50.5H, Arterial Blood Partial Pressure O2 79.1, Arterial Blood Total CO2 33.5H, Arterial Blood HCO3 31.9H, Arterial Blood Base Excess 6.5H, Arterial Blood Oxygen Saturation 95.8 CBC/BMP Laboratory Tests 12/22/19 06:24 MARDAVID DO Dec 22, 2019 21:08
[2019-12-22 22:00] VITALS: BP 141/60
[2019-12-22] MEDS: ASPIRIN 81 MG ENTERIC TAB PO SCH (22:42)
[2019-12-22] MEDS: QUEtiapine FUMARATE 25 MG TAB PO SCH (22:42)
[2019-12-22] MEDS: PANTOPRAZOLE 40MG TAB (PROTONIX) PO SCH (22:42)
[2019-12-23 06:00] VITALS: BP 142/69
[2019-12-23 06:30] LABS: HEMOGLOBIN 9.5 g/dl (13.5-17.5); MEAN CORPUSCULAR HEMOGLOBIN 28.9 pg (27.0-33.0); MEAN CORPUSCULAR HGB CONC 31.7 g/dl (32.0-36.5); MEAN CORPUSCULAR VOLUME 91.2 fl (80.0-96.0); PLATELET COUNT, AUTOMATED 297 10^3/uL (150-450); RED BLOOD COUNT 3.29 10^6/uL (4.30-6.10); WHITE BLOOD COUNT 7.1 10^3/uL (4.0-10.0)
[2019-12-23 06:57] LABS: CALCIUM LEVEL 8.5 MG/DL (8.8-10.2); CREATININE FOR GFR 1.59 MG/DL (0.70-1.30); GLOMERULAR FILTRATION RATE 44.1 (>35); POTASSIUM SERUM 4.2 MEQ/L (3.5-5.1)
[2019-12-23] MEDS: DOCUSATE SODIUM 100 MG CAP PO SCH ×2 (09:10→20:55)
[2019-12-23] MEDS: MIRALAX *UNIT DOSE* 17GM PACKET PO SCH ×2 (09:10→20:55)
[2019-12-23] MEDS: MOM 30ML SUSPENSION UDC PO SCH ×2 (09:10→20:55)
[2019-12-23] MEDS: SENNA 8.6 MG TAB (SENOKOT) PO SCH (09:11)
[2019-12-23] MEDS: NIFEdipine 30 MG XL TAB PO SCH (09:11)
[2019-12-23] MEDS: PARoxetine 20 MG TAB PO SCH (09:11)
[2019-12-23] MEDS: METOPROLOL TART 25 MG TABLET PO SCH ×2 (09:11→20:55)
[2019-12-23] MEDS: ACETAMINOPHEN 500 MG TAB PO SCH ×3 (09:11→20:55)
[2019-12-23] MEDS: amLODIPine 10 MG TAB PO SCH (09:11)
[2019-12-23] MEDS: TAMSULOSIN 0.4 MG CAP PO SCH (09:11)
[2019-12-23] MEDS: HumaLOG INSULIN (NovoLOG) PER UNIT SC SCH ×4 (09:12→21:00)
[2019-12-23] MEDS: LEVEMIR (INSULIN DETEMIR) 1 UNITS/0.01ML SC SCH (09:12)
[2019-12-23] MEDS ORDERED: AMLO1TAB25 PO (12:19)
[2019-12-23] MEDS ORDERED: ACET-683 PO (12:19)
[2019-12-23] MEDS ORDERED: FLOM0.4C39 PO (12:19)
[2019-12-23] MEDS ORDERED: INSUDET SC (12:19)
[2019-12-23] MEDS ORDERED: NIFE90TA20 PO (12:19)
[2019-12-23] MEDS ORDERED: DOCU100C16 PO (12:19)
[2019-12-23 14:00] VITALS: BP 122/58
[2019-12-23] MEDS: SIMVASTATIN 40 MG TAB PO SCH (18:12)
[2019-12-23] MEDS: QUEtiapine FUMARATE 25 MG TAB PO SCH (20:54)
[2019-12-23] MEDS: ASPIRIN 81 MG ENTERIC TAB PO SCH (20:54)
[2019-12-23] MEDS: PANTOPRAZOLE 40MG TAB (PROTONIX) PO SCH (20:54)
--- NOTE | 2019-12-23 21:28 | IPNPDOC ---
Subjective Date Seen The patient was seen on 12/23/19. Subjective Chief Complaint/HPI Mr. Lester is a 89-year-old male with who is here for intractable low back pain secondary to L2 compression fraction. Yesterday afternoon, he was more appropriate after the Carr catheter placement. He was able to sleep last night. Planning for discharge in the afternoon, but daughter did not want to take home due to Carr management. Will try removing Carr as he has had tamsulosin. Otherwise, this morning he denies fever/chills, chest pain, dyspnea, abdominal pain, or dysuria. Constitutional: Denies: Chills, Fever Pulmonary: Denies: Dyspnea Cardiovascular: Denies: Chest Pain Gastrointestinal: Denies: Abdominal Pain Genitourinary: Denies: Dysuria Objective Physical Examination General Exam: Positive: Cooperative Eye Exam: Positive: EOMI; Negative: Sclera icteric ENT Exam: Positive: Atraumatic Neck Exam: Positive: Supple Chest Exam: Positive: Clear to auscultation; Negative: Rales, Rhonchi, Wheezing Heart Exam: Positive: Rate Normal, Regular Rhythm Abdomen Exam: Positive: Normal bowel sounds Extremity Exam: Negative: Edema Neuro Exam: Positive: Normal Speech, Cranial Nerves 3-12 NL Psych Exam: Positive: Mood NL Assessment /Plan Assessment Mr. Haro is an 89-year-old male with history of transient ischemic attack, hypertension, diabetes, dyslipidemia, coronary artery disease, status post coronary artery bypass graft, admitted through the emergency room with complaints of constipation and insomnia. Intractable back pain and a fall one week prior to presentation. Evaluation included CT abdomen and pelvis which showed an acute L2 compression fracture, central canal stenosis at L2-L5 with bulging annulus at L5-S1 with a small central disc protrusion and possible impingement on the exiting right S1 nerve orthopedic surgery has been consulted for activity and further recommendations. Patient was found to have renal cyst, rule out kidney neoplasm with plans for MRI with and without contrast despite creatinine of 1.3. GFR remains at 51 and adequate for a contrast study. Medical oncologist, Dr. WINCHESTER recommended optimization of patient's functional capacity before proceeding with any invasive intervention in case. MRI of the abdomen shows renal neoplasm. Patient has cleared with physical therapy. Patient may be able to return home if able to be provided with 24/7 care He has been acting inappropriate. May be secondary to urinary retention vs poor sleep. No acute changes with CT head. UA and ammonia unremarkable. Daughter does not want to manage Carr. Will attempt voiding trials today Plan/VTE VTE Prophylaxis Ordered?: Yes Plan 1. Intractable back pain CT of the abdomen and pelvis demonstrated an L2 compression fracture with no repulsed fragments. Orthopedics has been consulted. Recommendations appreciated. -Outpatient follow up with orthopedics. Can do weightbearing as tolerated with walker Continue scheduled acetaminophen 2. Constipation Continue bowel regimen 3. Dementia/delirium/altered mental status Daughter says that patient's memory has been worsening May be secondary to constipation vs pain vs insomnia Treat underlying cause 4. Insomnia Increased Seroquel tonight 5. Hypertension Continue amlodipine, nifedipine, and metoprolol 6. Coronary artery disease status post stent and CABG Continue statin, aspirin, beta meg Stable, no active chest pain 7. Diabetes mellitus Continue Levemir and sliding scale insulin 8. Urinary retention -Repeat MRI does not demonstrate cauda equina -Patient on tamsulosin -Will re-attempt voiding trials 9. DVT prophylaxis SCDs and teds VS, I&O, [facility] Vital Signs/I&O Vital Signs Date Time Temp Pulse Resp B/P (MAP) Pulse Ox O2 Delivery O2 Flow Rate FiO2 12/23/19 20:55 61 130/46 12/23/19 14:00 97.7 18 95 Room Air I&O- Last 24 Hours up to 6 AM 12/23/19 06:00 Intake Total 620 ml Output Total 1025 ml Balance -405 ml Laboratory Data 24H LABS Laboratory Tests 2 12/23/19 06:10: Nucleated Red Blood Cells % (auto) 0.0, Anion Gap 4L, Glomerular Filtration Rate 44.1, Calcium Level 8.5L, Acetaminophen Level 3.7L 12/23/19 11:20: Bedside Glucose (Misc Panel) 203H 12/23/19 17:02: Bedside Glucose (Misc Panel) 68L CBC/BMP Laboratory Tests 12/23/19 06:10 DAVID SALINAS DO Dec 23, 2019 21:28
[2019-12-23 22:00] VITALS: BP 131/82
[2019-12-24 06:01] VITALS: BP 136/87
[2019-12-24 06:37] LABS: HEMATOCRIT 32.1 % (42.0-52.0); HEMOGLOBIN 10.1 g/dl (13.5-17.5); MEAN CORPUSCULAR HEMOGLOBIN 28.5 pg (27.0-33.0); MEAN CORPUSCULAR HGB CONC 31.5 g/dl (32.0-36.5); MEAN CORPUSCULAR VOLUME 90.7 fl (80.0-96.0); PLATELET COUNT, AUTOMATED 292 10^3/uL (150-450); RED BLOOD COUNT 3.54 10^6/uL (4.30-6.10); WHITE BLOOD COUNT 7.2 10^3/uL (4.0-10.0)
[2019-12-24 07:01] LABS: CALCIUM LEVEL 8.2 MG/DL (8.8-10.2); CREATININE FOR GFR 1.58 MG/DL (0.70-1.30); GLOMERULAR FILTRATION RATE 44.4 (>35)
[2019-12-24 09:00] VITALS: BP 147/64
[2019-12-24] MEDS: METOPROLOL TART 25 MG TABLET PO SCH (09:00)
[2019-12-24] MEDS: MIRALAX *UNIT DOSE* 17GM PACKET PO SCH (09:00)
[2019-12-24] MEDS: ACETAMINOPHEN 500 MG TAB PO SCH ×3 (09:00→16:00)
[2019-12-24] MEDS: MOM 30ML SUSPENSION UDC PO SCH (09:00)
[2019-12-24] MEDS: SENNA 8.6 MG TAB (SENOKOT) PO SCH (09:00)
[2019-12-24] MEDS: DOCUSATE SODIUM 100 MG CAP PO SCH (09:14)
[2019-12-24] MEDS: HumaLOG INSULIN (NovoLOG) PER UNIT SC SCH ×2 (09:14→14:08)
[2019-12-24] MEDS: LEVEMIR (INSULIN DETEMIR) 1 UNITS/0.01ML SC SCH (09:14)
[2019-12-24] MEDS: TAMSULOSIN 0.4 MG CAP PO SCH (09:14)
[2019-12-24] MEDS: PARoxetine 20 MG TAB PO SCH (09:15)
[2019-12-24] MEDS: amLODIPine 10 MG TAB PO SCH (09:17)
[2019-12-24] MEDS: NIFEdipine 30 MG XL TAB PO SCH (09:17)
[2019-12-24] MEDS ORDERED: LOPR1TAB6 PO (12:48)
--- NOTE | 2019-12-24 21:14 | DS.PDOC ---
Discharge Summary General Date of Admission Dec 11, 2019 at 17:28 Date of Discharge Dec 23, 2019 Attending Physician: DAVID SALINAS DO Specialist/[facility], Dr. Lyric Wong/Onc, Dr. Jeffries Discharge Summary PROCEDURES PERFORMED DURING STAY: None ADMITTING DIAGNOSES: 1. Intractable back pain 2. Constipation 3. Dementia/delirium/altered mental status 4. Insomnia 5. Hypertension 6. Coronary artery disease status post stent and CABG 7. Diabetes mellitus DISCHARGE DIAGNOSES: 1. Intractable back pain 2/2 L2 compression fracture with no repulsed fragments 2. Constipation 3. Dementia/delirium/altered mental status 4. Insomnia 5. Hypertension 6. Coronary artery disease status post stent and CABG 7. Diabetes mellitus 8. Urinary retention 9.History of prostate cancer 10. Exophytic growth from lower pole of right kidney COMPLICATIONS/CHIEF COMPLAINT: Back Pain/Hypertension/Insomnia. HISTORY OF PRESENT ILLNESS: Mr. Lester is a 89-year-old male with coronary artery disease status post CABG, TIA, dyslipidemia, diabetes mellitus, and hyp ertension who comes to the ED for intractable back pain, constipation for 5 days, and insomnia for 6 days. Patient was recently in the ED a week ago. He had a fall. The imaged him, he did not have any fractures and he was sent home. Since then, he's been taking Tylenol for the pain. The pain has not resolved. Pain is located in the lower back. He is inconsistent on or makes the pain better or worse. He tries to find different positions such as sitting, lying down, and standing. He denies any radiation of the pain. Denies any radiation towards the chest or towards the groin. Denies any history of kidney stones. In addition to the pain, he is also had constipation for the past 5 days. Daughter tells me that he's been able to eat and denies any abdominal pain or nausea. The daughter has been telling me that his memory has been worsening in the past week. They describe it as short-term memory loss. They were taken to the bathroom, then about a minute later he has to go to the bathroom. Normally his memory is a little better than this, although the daughter says he does have trouble remembering what he had for meals. HOSPITAL COURSE: Evaluated constipation and pain with CT abdomen and pelvis to look for SBO or nephrolithiasis. Instead found L2 compression fracture with no repulsed fragments and exophytic growth from lower pole of right kidney. Consulted orthopedics for the L2 compression fracture. They recommended weightbearing as tolerated with walker and outpatient follow up. During his hospitalization, his pain was controlled and he was able to sleep with the aid of Seroquel. For the exophytic growth on right kidney, heme/onc was consulted. With his history of prostate cancer, this may be a pathologic fracture. Recheck PSA which was <0.1. Imagining did not suggest metastatic disease of prostate. The exophytic growth may be a neoplasms, but would need a biopsy for definitive answer. Heme/Onc recommended optimization of patient's functional capacity before considering any invasive intervention. Patient to follow up with hematology oncology outpatient. Initially patient needed rehab. We were pending insurance, but patient progressed during that time. Patient could go home with daughter. During the past week, he started to develop intermittent urinary retention and inappropriate behavior. He was intermittently strait cath. Since he had prostatectomy, MRI was obtained to look for cauda equina syndrome. MRI did not demonstrate cauda equina syndrome. Patient was then started on Flomax and Carr catheter. Daughter did not want to take patient home on Carr catheter. After 2 days of Flomax Carr catheter was removed. Patient was able to urinate. Today patient felt well enough to go home. Denied any fever or chills, chest pain, dyspnea, abdominal pain, or dysuria. Patient was observed overnight discharged home with home care DISCHARGE MEDICATIONS: Please see below. ALLERGIES: Please see below. PHYSICAL EXAMINATION ON DISCHARGE: VITAL SIGNS: Please see below. GENERAL: Comfortable, in no apparent distress. HEENT: Head normocephalic/atraumatic, EOMI, sclera clear. NECK: Supple RESPIRATORY: Lungs clear to auscultation bilaterally, no rales, wheeze or rhonchi. CARDIOVASCULAR: Regular rate and rhythm. ABDOMEN: Soft, nontender, no guarding or rebound tenderness. Normal bowel sounds. MUSCLE SKELETAL: No pitting edema NEUROLOGICAL: CN 312 grossly intact, PSYCHOLOGICAL: Normal mood and affect LABORATORY DATA: Please see below. IMAGING: CT of the abdomen and pelvis 1. Acute vertebral compression fracture at L2. No retropulsed fragments. 2. Bilateral renal lesions not fully characterized on this unenhanced examination. The hyperdense lesions on the right are likely small hemorrhagic cysts. The low-density lesions bilaterally are likely simple cysts. These have increased in size since the previous study in 2017. Renal ultrasound might be considered if clinically relevant. 3. Large amount of stool throughout the colon suggests constipation 4. Bilateral nonobstructing renal calculi. No hydronephrosis. 5. Small sliding hiatal hernia 6. Six. Colonic diverticulosis. No diverticulitis. 7. 1 cm low-density lesion likely a cyst within the liver segment 6. No change from 2017. No follow-up recommended Renal ultrasound 1. Two complex cysts in the lower pole of the right kidney. An exophytic lesion projecting off the lower pole is suspicious for a renal neoplasm. Dedicated renal CT or MR recommended. 2. Simple or probably benign cysts in the left kidney. MRI of the lumbar spine 1. Multilevel disc desiccation indicating intervertebral disk degeneration with disc displacements as described. This is similar as compared with 12/13/19, including areas of spinal stenosis, most pronounced at L3-L4, without new evidence for cauda equina. 2. Stable mild compression of the L2 vertebral body with slightly decreased marrow edema and no fragment retropulsion. Would follow-up at 8 weeks from the initial exam to exclude underlying pathology if biopsy is not performed. MRI abdomen 1. 1.7 cm complicated exophytic cystic lesion arising from the inferior pole of the right kidney which is poorly evaluated in this study secondary to extensive motion artifact in the postcontrast sequences. However, this lesion is unchanged in size compared to the prior CT abdomen and pelvis with contrast on 03/26/2016. Further characterization could be performed with a dedicated renal protocol CT abdomen without and with intravenous contrast. 2. 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 The decision to pursue imaging follow-up and/or EUS/FNA should be anchored to the patient's overall health and preferences; such work-up is only advised if the patient is a surgical candidate. Reimaging every 2 years for 4 years could be performed. (Reference: Denzel, 2017) 3. Acute mild to moderate anterior wedge compression fracture of L2, which is better visualized in the MRI lumbar spine on 12/13/2019. Nuclear medicine bone scan Degenerative and osteoarthritic pattern of increased uptake in the cervical and thoracic spine. Increased uptake in the L2 vertebral body consistent with rec entcompression fracture deformity. Otherwise negative. PROGNOSIS: Stable ACTIVITY: Ambulate with walker DIET: 2 g sodium DISCHARGE PLAN: Home with home services DISPOSITION: 01 Home, Self-Care. DISCHARGE INSTRUCTIONS: 1. Follow-up with her PCP within one week 2. Follow-up with hematology oncology in 1-2 weeks 3. Follow-up with orthopedic surgery 4. Urology referral for urinary retention DISCHARGE CONDITION: Stable. Total time spent on discharge planning, discharge summary, and medication reconciliation: 60 minutes Vital Signs/I&Os Vital Signs Date Time Temp Pulse Resp B/P (MAP) Pulse Ox O2 Delivery O2 Flow Rate FiO2 12/24/19 09:00 91 147/64 12/24/19 06:01 96.8 19 98 Room Air I&O- Last 24 Hours up to 6 AM 12/24/19 06:00 Intake Total 840 ml Output Total 725 ml Balance 115 ml Laboratory Data Labs 24H Laboratory Tests 2 12/23/19 21:33: Bedside Glucose (Misc Panel) 203H 12/24/19 06:20: Nucleated Red Blood Cells % (auto) 0.0, Anion Gap 5L, Glomerular Filtration Rate 44.4, Calcium Level 8.2L 12/24/19 11:30: Bedside Glucose (Misc Panel) 279H CBC/BMP Laboratory Tests 12/24/19 06:20 FSBS Laboratory Tests Test 12/23/19 21:33 12/24/19 11:30 Range/Units Bedside Glucose (Misc Panel) 203 279 83-110 MG/DL Discharge Medications Scheduled Acetaminophen (Acetaminophen) 500 Mg Tablet, 1,000 MG PO TID Amlodipine Besylate (Amlodipine Besylate) 10 Mg Tablet, 10 MG PO DAILY Aspirin (Aspirin EC) 81 Mg Tablet.dr, 81 MG PO QHS, (Reported) Docusate Sodium (Docusate Sodium) 100 Mg Capsule, 100 MG PO BID Ergocalciferol (Vitamin D2) (Drisdol) 1,250 Mcg Capsule, 1,250 MCG PO 1XWK, (Reported) FRI. QPM Insulin Detemir (Levemir) 100 Unit/1 Ml Vial, 6 UNITS SC DAILY Melatonin (Melatonin) 3 Mg Tablet, 3 MG PO QHS, (Reported) Metoprolol Tartrate (Lopressor) 50 Mg Tablet, 50 MG PO BID Nifedipine (Nifedipine ER) 90 Mg Tablet.er, 90 MG PO DAILY Paroxetine HCl (Paroxetine) 20 Mg Tablet, 20 MG PO DAILY, (Reported) Polyethylene Glycol 3350 (Miralax) 119 Gm Powder, 17 GRAM PO BID for constipation dissolve in water Quetiapine Fumarate (Quetiapine Fumarate) 25 Mg Tablet, 25 MG PO QHS Simvastatin (Simvastatin) 40 Mg Tab, 40 MG PO QPM, (Reported) DINNERTIME Tamsulosin HCl (Flomax) 0.4 Mg Capsule, 0.4 MG PO DAILY Vit C/E/Zn/Coppr/Lutein/Zeaxan (Preservision Areds 2 Softgel) 1 Each Capsule, 1 EACH PO BID, (Reported) Allergies Coded Allergies: No Known Allergies (Verified , 07/29/07) DAVID SALINAS DO Dec 24, 2019 21:14
== END 2019-12-24 17:08 | disposition home health service (06) | DRG 552 ==
LOC: M ED 14:28 → M ED INP 17:28 → M PCU 18:26 → M MSPAV 12-14 16:18
PROVIDERS: ADMIT Internal Medicine; ATTEND Internal Medicine
DX: S32.020A Wedge compression fracture of second lumbar vertebra, initial encounter for closed fracture (principal); E78.5 Hyperlipidemia, unspecified; E11.9 Type 2 diabetes mellitus without complications; I10 Essential (primary) hypertension; I25.10 Atherosclerotic heart disease of native coronary artery without angina pectoris; F03.90 Unspecified dementia, unspecified severity, without behavioral disturbance, psychotic disturbance, mood disturbance, and anxiety; G47.00 Insomnia, unspecified; N28.89 Other specified disorders of kidney and ureter; R53.81 Other malaise; F32.9 Major depressive disorder, single episode, unspecified; K59.00 Constipation, unspecified; Z66 Do not resuscitate; Z86.73 Personal history of transient ischemic attack (TIA), and cerebral infarction without residual deficits; Z95.5 Presence of coronary angioplasty implant and graft; Z79.02 Long term (current) use of antithrombotics/antiplatelets; Z79.82 Long term (current) use of aspirin; Z79.4 Long term (current) use of insulin; Z79.899 Other long term (current) drug therapy; Z85.46 Personal history of malignant neoplasm of prostate; M81.0 Age-related osteoporosis without current pathological fracture; Z87.442 Personal history of urinary calculi; Z90.49 Acquired absence of other specified parts of digestive tract; I16.0 Hypertensive urgency; N28.1 Cyst of kidney, acquired; R33.9 Retention of urine, unspecified; W19.XXXA Unspecified fall, initial encounter

== ENCOUNTER → 2020-10-13 | Outpatient (CLI) | payer MEDICARE ==
[~2020-10-13] MED LIST changes: +ACET-683 PO; +AMLO1TAB25 PO; +ASPI81TA26 PO; +FLOM0.4C39 PO; +HYDR100T PO; +HYDR100T26 PO; +INSUDET SC; -LISI40TA PO; +LISI40TA4 PO; +LOPR1TAB6 PO; +MECL-136 PO; -MECL12.589 PO; +MELA3TAB30 PO; +METO1TAB87 PO; +MIRA3350 PO; +NIFE1TAB51 PO; +NIFE1TAB52 PO; +NIFE90TA20 PO; +PARO20TA4 PO; +PRES10CA2 PO; +QUET1TAB17 PO; +SENO8.6T10 PO; +TRAM50TA2 PO
== END ==
LOC: M LABSMTC 09:44
PROVIDERS: ATTEND Pediatrics
DX: Z20.822 Contact with and (suspected) exposure to COVID-19 (principal)
CPT/HCPCS: C9803; U0003

== ENCOUNTER 2021-05-11 21:59 | Emergency (ER) | payer MEDICARE ==
[~2021-05-11 21:59] MED LIST changes: +LOSA100T45 PO; -LOSA100T50 PO; +LOSA50TA28 PO; -LOSA50TA88 PO
[2021-05-11 22:25] VITALS: BP 168/74
== END 2021-05-11 23:05 | disposition home or self-care (01) ==
LOC: M ED 21:59
DX: T83.028A Displacement of other urinary catheter, initial encounter (principal); E11.9 Type 2 diabetes mellitus without complications; C61 Malignant neoplasm of prostate; Z86.73 Personal history of transient ischemic attack (TIA), and cerebral infarction without residual deficits; F32.9 Major depressive disorder, single episode, unspecified; F03.90 Unspecified dementia, unspecified severity, without behavioral disturbance, psychotic disturbance, mood disturbance, and anxiety; Z95.5 Presence of coronary angioplasty implant and graft; Z79.899 Other long term (current) drug therapy